=== PATIENT | male | born 1990 | race Caucasian/White ===

== ENCOUNTER 2022-04-22 18:54 | Inpatient (IN) | payer OTHER, SELFPAY ==
[2022-04-22 19:02] VITALS: BP 119/80; PULSE 81; RESP 18; TEMP 37.2; O2SAT 97; BMI 30.5
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
[2022-04-22 19:52] LABS: MANUAL DIFF FLAG NO
[2022-04-22 19:53] LABS: Basophils Percent Auto 0.7 % (0-2); Eosinophils Absolute Auto 0.1 X10*3/uL (0.0-0.4); Eosinophils Percent Auto 1.3 % (0-4); Hematocrit 41.5 % (42.0-52.0); Hemoglobin 15.2 g/dl (14.0-18.0); Imm Gran Abs Auto 0.01 X10*3/uL (0.00-0.03); Imm Gran Pct Auto 0.2 % (0.0-0.4); Lymphocytes Absolute Auto 2.2 X10*3/uL (1.2-4.9); Lymphocytes Percent Auto 40.4 % (20-40); Mean Corpuscular HGB Conc 36.6 g/dl (31.0-36.0); Mean Corpuscular Hemoglobin 32.3 pg (27.0-33.0); Mean Corpuscular Volume 88.3 fL (80.0-98.0); Mean Platelet Volume 10.3 fL (9.4-12.4); Monocytes Absolute Auto 0.7 X10*3/uL (0.1-1.2); Monocytes Percent Auto 13.5 % (2-11); Neutrophils Absolute Auto 2.4 x10*3/uL (2.0-8.3); Neutrophils Percent Auto 43.9 % (45-73); Platelet Count 182 X10*3/uL (160-400); Red Cell Distribution Width 12.1 % (11.0-16.0); White Blood Count 5.5 X10*3/uL (4.8-10.8)
[2022-04-22 19:59] LABS: COVID-19 Test Negative (Negative); IDNOW Serial# 16C4AD1C
[2022-04-22 20:21] LABS: Ethanol < 10 mg/dL
[2022-04-22 20:23] LABS: Acetaminophen LAB < 1 mcg/mL (<30); Anion Gap 11 (12-20); Blood Urea Nitrogen 13 mg/dL (9-16); Calcium 9.1 mg/dL (8.4-10.2); Carbon Dioxide 27 mmol/L (22-29); Chloride 104 mmol/L (96-108); Estimated Glomerular Filt Rate > 60; Glucose Random 79 mg/dL (60-115); Potassium 4.4 mmol/L (3.3-5.1); Salicylate < 5.0 mg/dL (15-30); Sodium 138 mmol/L (135-145)
[2022-04-22 21:07] LABS: Valproate 70.5 mcg/mL (50.0-100.0)
--- NOTE | 2022-04-22 22:58 | MHC.CARE ---
CARE team contacted by [facility] crisis accounts supervisor Tayla who shared information about the pt who had been boarding in the ED at [facility] from 04/18/22 until this afternoon when he was discharged following an MSU. Information will be in the assessment. CARE team was also contacted by the pt's mother and father, who expressed their concerns for their son's wellbeing and their safety. This information, too, will be in the assessment. This ghost writer will evaluate pt once he has provided a urine sample for a toxicology screen.
[2022-04-23 05:56] VITALS: BP 110/60; PULSE 60; RESP 16; TEMP 36.7; O2SAT 97
--- NOTE | 2022-04-23 06:45 | PC.NURSE ---
Patient slept through the night, no distress observed/reported, medication reconciliation completed/MAR updated, patient was assessed by care team pending disposition, VSS, contracted for the safety, behavior non concerning and appropriate, will continue to monitor.
[2022-04-23 08:02] LABS: Amphetamine Screen Urine Not Detected (Not Detect); Barbiturates, Urine Not Detected (Not Detect); Benzodiazepines Screen Urine Not Detected (Not Detect); Cannabinoid Screen Urine POSITIVE (Not Detect); Cocaine Screen Urine Not Detected (Not Detect); Fentanyl, urine Not Detected (Not Detect); Opiate Screen Urine Not Detected (Not Detect); Phencyclidine Screen Urine Not Detected (Not Detect)
--- NOTE | 2022-04-23 08:18 | PC.NURSE ---
pt a/o x 3 no sob/delphine noted skin pink warm dry speaks in full sentences. amb (i) gait steady.n denies any si/hi. pt states i just want to go home pt shari roomn resting,resp even and unlabored.
[2022-04-23] MEDS: Benztropine Mesylate 1 MG TABLET PO (08:21)
[2022-04-23 08:24] VITALS: BP 122/74; PULSE 59; RESP 14; TEMP 36.8; O2SAT 98
--- NOTE | 2022-04-23 08:39 | PC.NURSE ---
care team (thu) at bedside, pt aware of plan of care.
--- NOTE | 2022-04-23 10:45 | PC.NURSE ---
dr. adamson (psychiatrist) at bedside, pt aware of plan of care.
--- NOTE | 2022-04-23 12:06 | MHC.CARE ---
Spoke to patient's mother and provided an update--patient will not be discharging from the Emergency Dept., psychiatrist consulted, he met with him and concluded that patient is in need of inpatient treatment even if it is involuntary. [facility] is unable to accommodate patient until there is a discharge on one of the units, tomorrow a bedsearch will resume and if transferred to another facility they will be notified. Parents were both on speaker expressing concerns about their son coming home, said they have been waiting for him to walk in at any moment and stated they are afraid of him and for him at this time. They asked about visiting hours and decided that it would agitate patient more so decided not to come here.
--- NOTE | 2022-04-23 14:00 | PC.NURSE ---
pt refused lunch, fluids encouraged.
[2022-04-23 14:28] VITALS: RESP 14
[2022-04-23] MEDS: Ziprasidone 80 MG CAPSULE 160 MG PO (20:51)
[2022-04-23] MEDS: Divalproex Sodium ER 500 MG TAB.ER.24H 1500 MG PO (20:51)
[2022-04-24 05:48] VITALS: BP 111/61; PULSE 50; RESP 16; TEMP 36.8; O2SAT 99
--- NOTE | 2022-04-24 06:00 | PC.NURSE ---
MHT attempted to complete changeover. pt refused to change out of T-shirt and socks. RN aware.
--- NOTE | 2022-04-24 06:29 | PC.NURSE ---
Patient slept through the night, no distress observed/reported, medication compliant,disposition per care team is section 12 inpatient bed search, VSS, contracted for the safety, behavior non concerning and appropriate, will continue to monitor.
--- NOTE | 2022-04-24 07:06 | PC.NURSE ---
patient appears to remain asleep at present respirations are even and unlabored patient appears in no distress
[2022-04-24 07:37] VITALS: BP 129/74; PULSE 58; TEMP 36.1; O2SAT 100
--- NOTE | 2022-04-24 10:39 | PC.NURSE ---
client asking for snacks, patient aware not a lot of supplies. what time is lunch?, why is it so late? I dont like your rules
--- NOTE | 2022-04-24 15:22 | PC.NURSE ---
Attempt made to engage pt in individual tx session this date. Upon approach pt presents agitated, guarded, and reactive with little to no insight with regard to events leading up to his hospitalization. Pt presented with various activities as well as sensory item however refuses all activities provided. Consult with pts nurse regarding pts current mood. Pt is unreceptive to all interventions attempted this day.
[2022-04-24 20:27] VITALS: BP 117/71; PULSE 67; RESP 18; TEMP 36.6; O2SAT 96
[2022-04-24] MEDS: OLANZapine 10 MG VIAL IM (21:59)
[2022-04-24] MEDS: Ziprasidone 80 MG CAPSULE 160 MG PO (23:10)
[2022-04-24] MEDS: Benztropine Mesylate 1 MG TABLET PO (23:11)
[2022-04-24] MEDS: Divalproex Sodium ER 500 MG TAB.ER.24H 1500 MG PO (23:28)
--- NOTE | 2022-04-25 00:40 | PC.ADMIT ---
Patient is a 31 year old single white, Tajik speaking male arrived on M5 from the [facility] ED via stretcher in 4 point restraints with security escorting him. He arrived on the unit at 2130 04/24/22 and was yelling and threatening staff and said he was going to Rip this place up . He was brought up on a Section 12 B after he refused to sign a CV. Patient was not willing to settle down despite staff offering him fluids, quiet space, medications and release from restraints. Dr. Velásquez was notified of admission and an order for an IM of Zyprexa 10 mg as a restraint was ordered and given at 215 in the left Deltoid. Patient continued to state he was angry with his parents and did not feel he needed to be in another [facility] . Patient was recently at [facility] ED for several days but was released due to not meeting criteria for IPLOC. Patient had a argument with his parents and was brought to [facility] ED. Patient finally went to sleep after the injection and restraints were removed at 2259. Patient taken via wheelchair to his room in 517-1, he ate a half sandwich and took his scheduled HS medications. Dr. Velásquez was notified of patient's calm behavior and an order was obtained for patient to be placed on 5 minute safety checks. Patient was too sleepy to sign releases or answer questions for admission.
[2022-04-25 08:00] VITALS: BP 112/81; PULSE 68; TEMP 36.2
[2022-04-25 10:21] LABS: Estimated Average Glucose 91 mg/dL; Hemoglobin A1c % 4.8 %
[2022-04-25 10:27] LABS: Alanine Aminotransferase 19 U/L (0-40); Alkaline Phosphatase 41 U/L (39-117); Anion Gap 14 (12-20); Aspartate Amino Transferase 24 U/L (5-37); Bilirubin Total 0.4 mg/dL (0.0-1.0); Blood Urea Nitrogen 14 mg/dL (9-16); Calcium 9.5 mg/dL (8.4-10.2); Carbon Dioxide 26 mmol/L (22-29); Chloride 105 mmol/L (96-108); Cholesterol 128 mg/dL; Creatinine Clr Calc Pharmacy 161.8; Estimated Glomerular Filt Rate > 60; Glucose Fasting 80 mg/dL (60-99); HDL Cholesterol 26 mg/dL; LDL Cholesterol Calculated 78 mg/dl; Potassium 4.5 mmol/L (3.3-5.1); Sodium 140 mmol/L (135-145); Total Protein 6.8 g/dL (6.5-8.0); Triglycerides 122 mg/dL
[2022-04-25 10:31] LABS: Free T4 (Free Thyroxine) 1.11 ng/dL (0.71-1.85); Thyroid Stimulating Hormone 2.22 uIU/mL (0.32-4.0)
[2022-04-25 10:49] LABS: Folate 12.6 ng/mL (> or = 4.0); Vitamin B12 468 pg/mL (200-900)
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
[2022-04-25 17:10] VITALS: BP 113/66; PULSE 65; TEMP 37.3
[2022-04-25] MEDS: Divalproex Sodium ER 500 MG TAB.ER.24H 1500 MG PO (22:16)
[2022-04-25] MEDS: Ziprasidone 80 MG CAPSULE 160 MG PO (22:18)
[2022-04-25] MEDS: Benztropine Mesylate 1 MG TABLET PO (22:19)
[2022-04-25] MEDS: hydrOXYzine HCL 25 MG TABLET PO (23:10)
[2022-04-26 06:00] VITALS: BP 102/56; PULSE 66; TEMP 36.6; O2SAT 99
[2022-04-26 13:02] VITALS: BMI 30.9
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
[2022-04-26 21:26] VITALS: BP 130/78; PULSE 118; RESP 18; TEMP 37.3
[2022-04-26] MEDS: Ziprasidone 80 MG CAPSULE 160 MG PO (22:37)
[2022-04-26] MEDS: Benztropine Mesylate 1 MG TABLET PO (22:38)
[2022-04-26] MEDS: Divalproex Sodium ER 500 MG TAB.ER.24H 1500 MG PO (22:38)
[2022-04-26] MEDS: Melatonin 3 MG TABLET 9 MG PO (22:38)
[2022-04-27 08:36] VITALS: BP 119/76; PULSE 64; RESP 18; TEMP 36.8; O2SAT 98
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
[2022-04-27 19:55] VITALS: BP 125/74; PULSE 86
[2022-04-27] MEDS: Divalproex Sodium ER 500 MG TAB.ER.24H 1500 MG PO (23:04)
[2022-04-27] MEDS: Ziprasidone 80 MG CAPSULE 160 MG PO (23:05)
[2022-04-27] MEDS: Melatonin 3 MG TABLET 9 MG PO (23:05)
[2022-04-27] MEDS: Benztropine Mesylate 1 MG TABLET PO (23:05)
[2022-04-28 06:00] VITALS: BP 130/74; PULSE 94; RESP 18; TEMP 36.4; O2SAT 98
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
[2022-04-28 19:40] VITALS: BP 150/65; TEMP 36.9; O2SAT 97
[2022-04-28] MEDS: Divalproex Sodium ER 500 MG TAB.ER.24H 1500 MG PO (23:53)
[2022-04-28] MEDS: Benztropine Mesylate 1 MG TABLET PO (23:54)
[2022-04-28] MEDS: Ziprasidone 80 MG CAPSULE 160 MG PO (23:54)
[2022-04-28] MEDS: Melatonin 3 MG TABLET 9 MG PO (23:54)
[2022-04-29 06:00] VITALS: BP 123/76; PULSE 77; RESP 18; TEMP 36.3; O2SAT 98
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
[2022-04-29 18:00] VITALS: BP 121/66; PULSE 83; TEMP 36.5; O2SAT 98
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
[2022-04-29] MEDS: Ziprasidone 80 MG CAPSULE 160 MG PO (23:41)
[2022-04-29] MEDS: Divalproex Sodium ER 500 MG TAB.ER.24H 1500 MG PO (23:42)
[2022-04-29] MEDS: Benztropine Mesylate 1 MG TABLET PO (23:42)
[2022-04-29] MEDS: Melatonin 3 MG TABLET 9 MG PO (23:43)
[2022-04-30 06:00] VITALS: BP 131/70; PULSE 79; RESP 18; TEMP 36.4; O2SAT 98
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
[2022-04-30 18:00] VITALS: BP 126/77; PULSE 86; RESP 16; TEMP 36.3
[2022-04-30] MEDS: Melatonin 3 MG TABLET 9 MG PO (20:47)
[2022-04-30] MEDS: Ziprasidone 80 MG CAPSULE 160 MG PO (20:47)
[2022-04-30] MEDS: Benztropine Mesylate 1 MG TABLET PO (20:47)
[2022-04-30] MEDS: Divalproex Sodium ER 500 MG TAB.ER.24H 1500 MG PO (20:47)
[2022-05-01 06:00] VITALS: BP 128/80; PULSE 66; RESP 16; TEMP 36.7; O2SAT 99
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
[2022-05-01 18:00] VITALS: BP 134/84; PULSE 82
[2022-05-01] MEDS: Ziprasidone 80 MG CAPSULE 160 MG PO (22:07)
[2022-05-01] MEDS: Benztropine Mesylate 1 MG TABLET PO (22:07)
[2022-05-01] MEDS: Melatonin 3 MG TABLET 9 MG PO (22:07)
[2022-05-01] MEDS: Divalproex Sodium ER 500 MG TAB.ER.24H 1500 MG PO (22:07)
[2022-05-02 06:42] VITALS: BP 115/77; PULSE 69; RESP 16; TEMP 36.3; O2SAT 98
[2022-05-02] MEDS: Lithium Carbonate ER 450 MG TABLET.ER PO (14:00)
[2022-05-02 18:00] VITALS: BP 136/82; PULSE 64; RESP 14; TEMP 36.6
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
[2022-05-02] MEDS: Melatonin 3 MG TABLET 9 MG PO (23:13)
[2022-05-02] MEDS: Benztropine Mesylate 1 MG TABLET PO (23:13)
[2022-05-02] MEDS: Ziprasidone 80 MG CAPSULE 160 MG PO (23:13)
[2022-05-02] MEDS: Divalproex Sodium ER 500 MG TAB.ER.24H 1500 MG PO (23:14)
[2022-05-03 06:46] VITALS: BP 97/55; PULSE 73; RESP 16; TEMP 35.9; O2SAT 98
[2022-05-03 07:00] VITALS: BMI 31.4
[2022-05-03] MEDS: Lithium Carbonate ER 450 MG TABLET.ER PO ×2 (10:31→22:13)
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
[2022-05-03 16:25] VITALS: BP 106/58; PULSE 78
[2022-05-03] MEDS: Benztropine Mesylate 1 MG TABLET PO (22:13)
[2022-05-03] MEDS: Ziprasidone 80 MG CAPSULE 160 MG PO (22:13)
[2022-05-03] MEDS: Divalproex Sodium ER 500 MG TAB.ER.24H 1500 MG PO (22:13)
[2022-05-03] MEDS: Melatonin 3 MG TABLET 9 MG PO (22:14)
[2022-05-04 06:00] VITALS: BP 126/81; PULSE 76; RESP 18; TEMP 36.3; O2SAT 96
[2022-05-04] MEDS: Lithium Carbonate ER 450 MG TABLET.ER PO ×2 (09:39→22:50)
[2022-05-04 16:39] VITALS: BP 133/60; PULSE 68
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
[2022-05-04] MEDS: Divalproex Sodium ER 500 MG TAB.ER.24H 1500 MG PO (22:49)
[2022-05-04] MEDS: Benztropine Mesylate 1 MG TABLET PO (22:50)
[2022-05-04] MEDS: Ziprasidone 80 MG CAPSULE 160 MG PO (22:50)
[2022-05-04] MEDS: Melatonin 3 MG TABLET 9 MG PO (22:50)
[2022-05-05 06:00] VITALS: BP 121/79; PULSE 72; RESP 18; TEMP 36.4; O2SAT 96
[2022-05-05] MEDS: Lithium Carbonate ER 450 MG TABLET.ER PO ×2 (08:42→21:26)
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
[2022-05-05 18:00] VITALS: BP 133/67; PULSE 85; RESP 18; TEMP 37.2; O2SAT 98
[2022-05-05] MEDS: Divalproex Sodium ER 500 MG TAB.ER.24H 1500 MG PO (21:25)
[2022-05-05] MEDS: Melatonin 3 MG TABLET 9 MG PO (21:25)
[2022-05-05] MEDS: Ziprasidone 80 MG CAPSULE 160 MG PO (21:26)
[2022-05-05] MEDS: Benztropine Mesylate 1 MG TABLET PO (21:26)
[2022-05-06 06:00] VITALS: BP 131/64; PULSE 81; RESP 18; TEMP 37; O2SAT 97
[2022-05-06] MEDS: Lithium Carbonate ER 450 MG TABLET.ER PO (08:13)
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
[2022-05-06 16:01] VITALS: BP 171/94; PULSE 87
[2022-05-06] MEDS: Divalproex Sodium ER 500 MG TAB.ER.24H 1500 MG PO (22:01)
[2022-05-06] MEDS: Melatonin 3 MG TABLET 9 MG PO (22:02)
[2022-05-06] MEDS: Ziprasidone 80 MG CAPSULE 160 MG PO (22:02)
[2022-05-06] MEDS: Benztropine Mesylate 1 MG TABLET PO (22:02)
[2022-05-07 06:00] VITALS: BP 134/72; PULSE 84; RESP 18; TEMP 37.2; O2SAT 98
[2022-05-07 08:33] LABS: MANUAL DIFF FLAG NO
[2022-05-07 08:42] LABS: Basophils Percent Auto 0.6 % (0-2); Eosinophils Absolute Auto 0.2 X10*3/uL (0.0-0.4); Eosinophils Percent Auto 2.8 % (0-4); Hematocrit 41.5 % (42.0-52.0); Hemoglobin 14.8 g/dl (14.0-18.0); Imm Gran Abs Auto 0.04 X10*3/uL (0.00-0.03); Imm Gran Pct Auto 0.6 % (0.0-0.4); Lymphocytes Absolute Auto 2.4 X10*3/uL (1.2-4.9); Lymphocytes Percent Auto 37.8 % (20-40); Mean Corpuscular HGB Conc 35.7 g/dl (31.0-36.0); Mean Corpuscular Hemoglobin 32.7 pg (27.0-33.0); Mean Corpuscular Volume 91.6 fL (80.0-98.0); Mean Platelet Volume 10.4 fL (9.4-12.4); Monocytes Absolute Auto 0.8 X10*3/uL (0.1-1.2); Monocytes Percent Auto 13.2 % (2-11); Neutrophils Absolute Auto 2.9 x10*3/uL (2.0-8.3); Platelet Count 165 X10*3/uL (160-400); Red Blood Count 4.53 X10*6/uL (4.60-5.80); White Blood Count 6.4 X10*3/uL (4.8-10.8)
[2022-05-07 09:04] LABS: Lithium 0.23 mmol/L (0.60-1.20)
[2022-05-07 09:07] LABS: Alanine Aminotransferase 31 U/L (0-40); Albumin Level 4.3 g/dL (3.5-5.0); Alkaline Phosphatase 42 U/L (39-117); Anion Gap 12 (12-20); Aspartate Amino Transferase 16 U/L (5-37); Bilirubin Total 0.6 mg/dL (0.0-1.0); Blood Urea Nitrogen 14 mg/dL (9-16); Calcium 9.5 mg/dL (8.4-10.2); Carbon Dioxide 27 mmol/L (22-29); Chloride 105 mmol/L (96-108); Creatinine Clr Calc Pharmacy 166.1; Estimated Glomerular Filt Rate > 60; Glucose Random 98 mg/dL (60-115); Potassium 4.1 mmol/L (3.3-5.1); Sodium 140 mmol/L (135-145)
[2022-05-07 09:31] LABS: Thyroid Stimulating Hormone 3.98 uIU/mL (0.32-4.0)
[2022-05-07 10:23] LABS: Valproate 57.6 mcg/mL (50.0-100.0)
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
[2022-05-07 20:34] VITALS: BP 138/80; PULSE 83
[2022-05-07] MEDS: Ziprasidone 80 MG CAPSULE 160 MG PO (21:51)
[2022-05-07] MEDS: Melatonin 3 MG TABLET 9 MG PO (21:51)
[2022-05-07] MEDS: Benztropine Mesylate 1 MG TABLET PO (21:51)
[2022-05-07] MEDS: Divalproex Sodium ER 250 MG TAB.ER.24H 1750 MG PO (21:51)
[2022-05-07] MEDS: Lithium Carbonate ER 450 MG TABLET.ER 900 MG PO (21:52)
[2022-05-08 06:43] VITALS: BP 107/71; PULSE 65; RESP 14; TEMP 36.1; O2SAT 97
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
[2022-05-08 17:15] VITALS: BP 125/81; PULSE 82; TEMP 36.6; O2SAT 98
[2022-05-08] MEDS: Melatonin 3 MG TABLET 9 MG PO ×2 (22:51→22:55)
[2022-05-08] MEDS: Divalproex Sodium ER 250 MG TAB.ER.24H 1750 MG PO (22:56)
[2022-05-08] MEDS: Ziprasidone 80 MG CAPSULE 160 MG PO (22:57)
[2022-05-08] MEDS: Lithium Carbonate ER 450 MG TABLET.ER 900 MG PO (22:57)
[2022-05-08] MEDS: Benztropine Mesylate 1 MG TABLET PO (22:59)
[2022-05-09 06:00] VITALS: BP 118/79; PULSE 67; TEMP 36.2; O2SAT 97
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
[2022-05-09] MEDS: Melatonin 3 MG TABLET 9 MG PO (18:50)
[2022-05-09 19:30] VITALS: BP 154/81; PULSE 93; RESP 14; TEMP 37; O2SAT 99
[2022-05-09] MEDS: Lithium Carbonate ER 450 MG TABLET.ER 900 MG PO (21:52)
[2022-05-09] MEDS: Benztropine Mesylate 1 MG TABLET PO (21:52)
[2022-05-09] MEDS: Ziprasidone 80 MG CAPSULE 160 MG PO (21:52)
[2022-05-09] MEDS: Divalproex Sodium ER 250 MG TAB.ER.24H 1750 MG PO (21:53)
[2022-05-10 06:59] VITALS: BP 116/84; PULSE 87; RESP 14; TEMP 36.2; O2SAT 97
[2022-05-10 07:00] VITALS: BMI 32.2
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
[2022-05-10 20:50] VITALS: BP 118/71; PULSE 78; TEMP 36.8
[2022-05-10] MEDS: Melatonin 3 MG TABLET 9 MG PO (22:10)
[2022-05-10] MEDS: Ziprasidone 80 MG CAPSULE 160 MG PO (22:11)
[2022-05-10] MEDS: hydrOXYzine HCL 25 MG TABLET PO (22:13)
[2022-05-10] MEDS: Lithium Carbonate ER 450 MG TABLET.ER 900 MG PO (22:14)
[2022-05-10] MEDS: Divalproex Sodium ER 250 MG TAB.ER.24H 1750 MG PO (22:15)
[2022-05-10] MEDS: Benztropine Mesylate 1 MG TABLET PO (22:15)
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
[2022-05-11 21:09] VITALS: BP 125/66; PULSE 80; RESP 16; O2SAT 96
[2022-05-11] MEDS: Lithium Carbonate ER 450 MG TABLET.ER 900 MG PO (22:28)
[2022-05-11] MEDS: Divalproex Sodium ER 250 MG TAB.ER.24H 1750 MG PO (22:28)
[2022-05-11] MEDS: Melatonin 3 MG TABLET 9 MG PO (22:29)
[2022-05-11] MEDS: Ziprasidone 80 MG CAPSULE 160 MG PO (22:29)
[2022-05-11] MEDS: Benztropine Mesylate 1 MG TABLET PO (22:29)
[2022-05-11] MEDS: hydrOXYzine HCL 25 MG TABLET PO (22:29)
[2022-05-12 06:44] VITALS: BP 114/66; PULSE 89; RESP 14; TEMP 36.2; O2SAT 96
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
[2022-05-12 18:00] VITALS: BP 128/64; PULSE 78; RESP 16; TEMP 37.4; O2SAT 98
[2022-05-12] MEDS: Divalproex Sodium ER 250 MG TAB.ER.24H 1750 MG PO (21:39)
[2022-05-12] MEDS: Lithium Carbonate ER 450 MG TABLET.ER 900 MG PO (21:40)
[2022-05-12] MEDS: Melatonin 3 MG TABLET 9 MG PO (21:40)
[2022-05-12] MEDS: Benztropine Mesylate 1 MG TABLET PO (21:40)
[2022-05-12] MEDS: hydrOXYzine HCL 25 MG TABLET PO (21:40)
[2022-05-12] MEDS: Ziprasidone 80 MG CAPSULE 160 MG PO (21:40)
[2022-05-13 06:00] VITALS: BP 122/60; PULSE 55; RESP 16; TEMP 36.5; O2SAT 100
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
[2022-05-13 18:00] VITALS: BP 125/74; PULSE 80; RESP 18; TEMP 36.7; O2SAT 98
[2022-05-13] MEDS: Divalproex Sodium ER 500 MG TAB.ER.24H 1500 MG PO (22:28)
[2022-05-13] MEDS: Benztropine Mesylate 1 MG TABLET PO (22:28)
[2022-05-13] MEDS: Lithium Carbonate ER 450 MG TABLET.ER 900 MG PO (22:29)
[2022-05-13] MEDS: Ziprasidone 80 MG CAPSULE 160 MG PO (22:29)
[2022-05-13] MEDS: hydrOXYzine HCL 25 MG TABLET PO (22:29)
[2022-05-13] MEDS: Divalproex Sodium ER 250 MG TAB.ER.24H PO (22:29)
[2022-05-13] MEDS: Melatonin 3 MG TABLET 9 MG PO (22:30)
[2022-05-14 06:00] VITALS: BP 121/64; PULSE 70; RESP 16; TEMP 36.6; O2SAT 99
[2022-05-14 08:28] LABS: Lithium < 0.10 mmol/L (0.60-1.20)
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
[2022-05-14 18:00] VITALS: BP 130/80; PULSE 82
[2022-05-14] MEDS: Melatonin 3 MG TABLET 9 MG PO (22:15)
[2022-05-14] MEDS: hydrOXYzine HCL 25 MG TABLET PO (22:15)
[2022-05-14] MEDS: Lithium Carbonate ER 450 MG TABLET.ER 900 MG PO (22:15)
[2022-05-14] MEDS: Benztropine Mesylate 1 MG TABLET PO (22:15)
[2022-05-14] MEDS: Ziprasidone 80 MG CAPSULE 160 MG PO (22:15)
[2022-05-14] MEDS: Divalproex Sodium ER 500 MG TAB.ER.24H 1500 MG PO (22:16)
[2022-05-14] MEDS: Divalproex Sodium ER 250 MG TAB.ER.24H PO (22:16)
[2022-05-15 05:56] VITALS: BP 117/70; PULSE 66; RESP 16; TEMP 36.3; O2SAT 95
--- NOTE | 2022-05-15 07:00 | ECG_ITS ---
Test Reason : MED CHECK Blood Pressure : / mmHG Vent. Rate : 069 BPM Atrial Rate : 069 BPM P-R Int : 182 ms QRS Dur : 122 ms QT Int : 390 ms P-R-T Axes : 040 042 037 degrees QTc Int : 417 ms Normal sinus rhythm Right bundle branch block Abnormal ECG No previous ECGs available Referred By: Thea Ceja Electronically Signed By:RAMOS LE MD
[2022-05-15 09:00] LABS: Baso%MD 0.9 %; Eos%MD 3.4 %; Hematocrit 42.9 % (42.0-52.0); Hemoglobin 15.2 g/dl (14.0-18.0); IG%MD 0.4 %; Lymph%MD 36.5 %; Mean Corpuscular HGB Conc 35.4 g/dl (31.0-36.0); Mean Corpuscular Volume 93.1 fL (80.0-98.0); Mean Platelet Volume 10.4 fL (9.4-12.4); Mono%MD 11.7 %; Neut%MD 47.1 %; Platelet Count 152 X10*3/uL (160-400); Red Blood Count 4.61 X10*6/uL (4.60-5.80); Red Cell Distribution Width 13.1 % (11.0-16.0); White Blood Count 5.6 X10*3/uL (4.8-10.8)
[2022-05-15 09:17] LABS: Lithium 0.57 mmol/L (0.60-1.20)
[2022-05-15 09:32] LABS: Alanine Aminotransferase 55 U/L (0-40); Albumin Level 4.1 g/dL (3.5-5.0); Alkaline Phosphatase 41 U/L (39-117); Anion Gap 12 (12-20); Aspartate Amino Transferase 23 U/L (5-37); Bilirubin Total 0.7 mg/dL (0.0-1.0); Blood Urea Nitrogen 12 mg/dL (9-16); Calcium 8.9 mg/dL (8.4-10.2); Carbon Dioxide 26 mmol/L (22-29); Chloride 106 mmol/L (96-108); Estimated Glomerular Filt Rate > 60; Glucose Random 107 mg/dL (60-115); Sodium 140 mmol/L (135-145); Total Protein 6.7 g/dL (6.5-8.0)
[2022-05-15 09:34] LABS: Valproate 59.9 mcg/mL (50.0-100.0)
[2022-05-15 09:45] LABS: Band Neutrophils Percent 2 % (3-5); Basophils Abs Manual 0.1 X10*3/uL (0.0-0.2); Basophils Percent Manual 1 % (0-2); Eosinophils Absolute Manual 0.1 X10*3/uL (0.0-0.4); Eosinophils Percent Manual 2 % (0-4); Lymphocytes Absolute Manual 2.1 X10*3/uL (1.2-4.9); Lymphocytes Percent Manual 37 % (20-40); Monocytes Absolute Manual 0.5 X10*3/uL (0.1-1.2); Monocytes Percent Manual 9 % (2-11); Neutrophils Absolute Manual 2.9 X10*3/uL (2.0-8.3); Neutrophils Percent Manual 49 % (45-73)
[2022-05-15 09:47] LABS: Platelet Estimate SLIGHTLY DECREASED (NORMAL); Platelet Morphology Comment NORMAL; RBC Morphology NORMAL
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
== END 2022-05-15 16:38 | disposition home or self-care (01) | DRG 885 ==
LOC: HO.ED 04-23 11:58 → HO.PM5 04-24 20:46
PROVIDERS: Physician Assistant; Psychiatry & Neurology Psychiatry; Admitting Provider Psychiatry & Neurology Psychiatry; Emergency Provider Emergency Medicine Emergency Medical Services; Visit Provider Clinical Nurse Specialist Psychiatric/Mental Health, Adult
DX: F31.9 Bipolar disorder, unspecified (principal); Z20.822 Contact with and (suspected) exposure to COVID-19; Z91.14 Patient's other noncompliance with medication regimen; Z88.1 Allergy status to other antibiotic agents; Z88.8 Allergy status to other drugs, medicaments and biological substances; Z79.899 Other long term (current) drug therapy
CPT/HCPCS: 36415; 80048; 80053; 80061; 80143; 80164; 80178; 80179; 80307; 82077; 82607; 82746; 83036; 84439; 84443; 85007; 85025; 85027; 87635; 93005; 99285

== ENCOUNTER 2022-07-13 09:52 | Inpatient (IN) | payer OTHER, SELFPAY ==
[2022-07-13 09:58] VITALS: BP 156/89; PULSE 108; RESP 20; TEMP 36.8; O2SAT 98; BMI 32.8
--- NOTE | 2022-07-13 10:46 | ED_ITS ---
HPI - Psych General Chief Complaint: Psychiatric Symptoms <GARRY Rm - Last Filed: 07/13/22 16:35> Stated Complaint: psych eval. <GARRY Rm - Last Filed: 07/13/22 16:35> Time Seen by Provider: 07/13/22 10:24 <GARRY Rm - Last Filed: 07/13/22 16:35> Source: patient, family and old records reviewed <GARRY Rm - Last Filed: 07/13/22 16:35> Mode of arrival: ambulatory <GARRY Rm - Last Filed: 07/13/22 16:35> Limitations: no limitations <GARRY Rm Last Filed: 07/13/22 16:35> History of Present Illness HPI Narrative: 32 yo male with history bipolar disorder, type 1 diagnosed at age 18 who presents to the ER for evaluation of concerning behavior per his parents report. His father who he lives with reports the patient was gone for over 14 hours. He was out all night and wandering around. He came back to the house this morning speaking about grandiose delusions. Father is worried about his safety. The patient reports he has been compliant with his Depakote, Geodon and Cogentin. He states he was walking around last night to ?go on an adventure. ? He states he walks around, interacting with people and animals and ?giving them respect.? He reports seeing lasers and different forms of art throughout his adventure. He denies any substance abuse other than and CBD and occasional alcohol. When asked the last time he slept he states he sleeps when he is tired. He did not sleep at all last night. He does not feel tired right now. <GARRY Rm - Last Filed: 07/13/22 16:35> MD complaint: altered mental status <GARRY Rm - Last Filed: 07/13/22 16:35> Onset (ago): day(s) (1) <GARRY Rm Last Filed: 07/13/22 16:35> Duration: getting worse <GARRY Rm Last Filed: 07/13/22 16:35> History of same: Yes <GARRY Rm Last Filed: 07/13/22 16:35> Relieving factors: medication and therapy <GARRY Rm Last Filed: 07/13/22 16:35> Exacerbating factors: none <GARRY Rm Last Filed: 07/13/22 16:35> Context: significant life stressor <GARRY Rm Last Filed: 07/13/22 16:35> Associated psychiatric symptoms: racing thoughts, auditory hallucinations and visual hallucinations <GARRY Rm Last Filed: 07/13/22 16:35> Associated symptoms: insomnia <GARRY Rm Last Filed: 07/13/22 16:35> Treatments prior to arrival: none <GARRY Rm Last Filed: 07/13/22 16:35> Related Data Home Medications: Home Medications Medication Instructions Recorded Confirmed hydroxyzine pamoate 25 mg capsule 1 cap PO TID PRN Anxiety 07/13/22 07/13/22 melatonin 3 mg tablet 3 mg PO BEDTIME 07/13/22 07/13/22 Previous Rx's Medication Instructions Recorded benztropine 1 mg tablet 1 mg PO DAILY #30 tabs 05/15/22 divalproex 250 mg tablet,extended 250 mg PO BEDTIME #30 tabs 05/15/22 release 24 hr divalproex 500 mg tablet,extended 1,500 mg PO BEDTIME #90 tabs 05/15/22 release 24 hr hydrocortisone 1 % topical cream 1 appl topical BID PRN eczema #1 g 05/15/22 lithium carbonate 450 mg 900 mg PO BEDTIME #6 tabs 05/15/22 tablet,extended release ziprasidone HCl 80 mg capsule 160 mg PO BEDTIME #60 caps 05/15/22 <GARRY Rm Last Filed: 07/13/22 16:35> Allergies/Adverse Reactions: Allergies Allergy/AdvReac Type Severity Reaction Status Date / Time sulfamethoxazole AdvReac Intermediate Rash Verified 04/22/22 19:17 [From Bactrim] trimethoprim [From Bactrim] AdvReac Intermediate Rash Verified 04/22/22 19:17 cefaclor [From Ceclor] AdvReac Rash Verified 04/22/22 19:18 <GARRY Rm Last Filed: 07/13/22 16:35> Review of Systems Review of Systems: Constitutional: No Fever, No Chills, +Insomnia ENT/Mouth: No sore throat, No Rhinorrhea, No Swallowing Difficulty Eyes: No Eye Pain, No Swelling, No Redness Cardiovascular: No Chest Pain, No SOB, No Orthopnea, No Edema Respiratory: No Cough, No Sputum, No Wheezing, No dyspnea Gastrointestinal: No Nausea, No Vomiting, No Diarrhea, No abdominal Pain, No Hematochezia, No Melena Genitourinary: No Dysuria, No Urinary Frequency, No Hematuria Musculoskeletal: No joint pain, No Myalgias Skin: No Skin Lesions, No rash Neuro: No Weakness, No Numbness, No Dizziness, No Headache Psych: + Anxiety/Panic, No Depression, No SI Heme/Lymph: No Bruising, No Lymphadenopathy Endocrine: No Polyuria, No Polydipsia <GARRY Rm - Last Filed: 07/13/22 16:35> [facility] Social History Social History: Social History Household Members: Family Housing: House Do you presently have visiting nurse or other home services: No Unable to assess alcohol history related to: Refusing to respond Alcohol intake: unknown Patient Tobacco Use Status: Never used Tobacco e-Cigarette/Vaping Use: Never Used Use of substances other than those prescribed or required for medical reasons: No Advance Directives: No Advance Directives Information Provided: No Healthcare Proxy: No Guardian: No service: No Sexual orientation: Straight/Heterosexual <GARRY Rm - Last Filed: 07/13/22 16:35> Physical Exam Vital Signs: Vital Signs: Last Vital Signs Temp 98.3 F 07/15/22 06:23 Pulse 90 07/15/22 06:23 Resp 07/15/22 06:23 BP 127/74 07/15/22 06:23 Pulse Ox 97 07/15/22 06:23 O2 Del Method 07/15/22 06:23 BMI result Body Mass Index 32.8 <GARRY Rm Last Filed: 07/13/22 16:35> Vital Signs: Last Vital Signs Temp 98.3 F 07/15/22 06:23 Pulse 90 07/15/22 06:23 Resp 07/15/22 06:23 BP 127/74 07/15/22 06:23 Pulse Ox 97 07/15/22 06:23 O2 Del Method 07/15/22 06:23 BMI result Body Mass Index 32.8 <Chapo Woodall MD - Last Filed: 07/14/22 08:16> Vital Signs: Last Vital Signs Temp 98.3 F 07/15/22 06:23 Pulse 90 07/15/22 06:23 Resp 17 07/15/22 06:23 BP 127/74 07/15/22 06:23 Pulse Ox 97 07/15/22 06:23 O2 Del Method 07/15/22 06:23 BMI result Body Mass Index 32.8 <Aureliano Arrington MD - Last Filed: 07/15/22 07:52> Appearance: Alert. Oriented X3. No acute distress. Eyes: Pupils equal, round and reactive to light. ENT: Pharynx normal. Neck: Normal inspection. Neck supple. CVS: Normal heart rate and rhythm. Pulses normal. Respiratory: No respiratory distress. Breath sounds normal. Abdomen: Soft and nontender. +BS x4 Skin: Skin warm and dry. Normal skin color. Normal skin turgor. No rashes. Extremities: No lower extremity edema. Neuro/psych: Oriented X 3. No motor deficit. No sensory deficit. CN II-XII intact. Makes eye contact, delay in answering some questions, grandiose delusions and fixations. No suicidality. Racing thoughts. Does not seem to be responding to internal stimuli <GARRY Rm - Last Filed: 07/13/22 16:35> Course Course Course Narrative: 32-year-old male with a history of bipolar 1 disorder who presents to the ER for evaluation of abnormal behavior. His parents report he went missing last night and was out all night, for over 14 hours. He came back to their house this morning with irrational thoughts and delusions. They are concerned about his safety. Will check basic lab workup, Depakote level and have the crisis team evaluate him. <GARRY Rm - Last Filed: 07/13/22 16:35> Reevaluation(s) Reevaluation #1: Depakote level is low. Suspect he will require inpatient level of care. Will place and physician observation at this time. Physician observation started at 1:55pm. Patient placed in physician observation because patient is awaiting [facility] evaluation for the possible need of inpatient psych admission. At the time observation was started patient's vital signs were stable. Patient is alert and oriented. Neuro exam is non-focal. CV: RRR and lungs are clear. Will continue to monitor. <GARRY Rm - Last Filed: 07/13/22 16:35> Reevaluation #2: No events overnight reported by the nurse, patient has been stable, stable vital signs, patient is been admitted to awaiting for bed availability, continue with Section 12, physician observation continuous. <Chapo Woodall MD - Last Filed: 07/14/22 08:16> Time: 08:15 <Chapo Woodall MD - Last Filed: 07/14/22 08:16> Reevaluation #3: No event overnight patient is on Section 12, inpatient level of care of care, remaining stable clinically <Aureliano Arrington MD - Last Filed: 07/15/22 07:52> MDM - Psych Lab Data Result diagrams: : 07/13/22 11:12 07/13/22 11:12 <GARRY Rm - Last Filed: 07/13/22 16:35> Labs: Lab Results 07/13/22 07/13/22 07/13/22 Range/Units 11:12 11:12 11:12 WBC 11.3 H (4.8-10.8) X10*3/uL RBC 5.22 (4.60-5.80) X10*6/uL Hgb 16.8 (14.0-18.0) g/dl Hct 47.1 (42.0-52.0) % MCV 90.2 (80.0-98.0) fL MCH 32.2 (27.0-33.0) pg MCHC 35.7 (31.0-36.0) g/dl RDW 11.7 (11.0-16.0) % Plt Count 224 D (160-400) X10*3/uL MPV 10.4 (9.4-12.4) fL Immature Gran % (Auto) 0.3 (0.0-0.4) % Neut % (Auto) 75.0 H (45-73) % Lymph % (Auto) 14.0 L (20-40) % [place] % (Auto) 10.1 (2-11) % Eos % (Auto) 0.2 (0-4) % Baso % (Auto) 0.4 (0-2) % Lymph # (Auto) 1.6 (1.2-4.9) X10*3/uL [place] # (Auto) 1.1 (0.1-1.2) X10*3/uL Eos # (Auto) 0.0 (0.0-0.4) X10*3/uL Baso # (Auto) 0.0 (0.0-0.2) X10*3/uL Abs Immat Gran (auto) 0.03 (0.00-0.03) X10*3/uL Absolute Neuts (auto) 8.5 H (2.0-8.3) x10*3/uL Absolute Nucleated RBC 0.000 (0.0-0.012) X10*3/uL Nucleated RBC % (auto) 0.0 (0.0-0.2) /100WBC Sodium 137 (135-145) mmol/L Potassium 3.9 (3.3-5.1) mmol/L Chloride 100 (96-108) mmol/L Carbon Dioxide 23 (22-29) mmol/L Anion Gap 18 (12-20) BUN 25 H D (9-16) mg/dL Creatinine 1.29 (0.5-1.4) mg/dL Estim Creat Clear Calc 104.2 Estimated GFR > 60 Random Glucose 175 H D (60-115) mg/dL Calcium 9.6 D (8.4-10.2) mg/dL Magnesium 2.3 (1.6-2.6) mg/dL Total Bilirubin 1.8 H (0.0-1.0) mg/dL Direct Bilirubin 0.6 H (0.0-0.5) mg/dL AST 36 D (5-37) U/L ALT 30 (0-40) U/L Alkaline Phosphatase 55 D (39-117) U/L Total Protein 8.4 H D (6.5-8.0) g/dL Albumin 5.1 H D (3.5-5.0) g/dL Urine Opiates Screen (Not Detect) Urine Fentanyl Screen (Not Detect) Ur Barbiturates Screen (Not Detect) Valproic Acid (50.0-100.0) mcg/mL Ur Phencyclidine Scrn (Not Detect) Ur Amphetamines Screen (Not Detect) U Benzodiazepines Scrn (Not Detect) Urine Cocaine Screen (Not Detect) U Marijuana (THC) Screen (Not Detect) Ethyl Alcohol < 10 mg/dL COVID-19 (JESS) Negative (Negative) COVID-19 Clin Com See Note 07/13/22 07/13/22 Range/Units 12:12 13:09 WBC (4.8-10.8) X10*3/uL RBC (4.60-5.80) X10*6/uL Hgb (14.0-18.0) g/dl Hct (42.0-52.0) % MCV (80.0-98.0) fL MCH (27.0-33.0) pg MCHC (31.0-36.0) g/dl RDW (11.0-16.0) % Plt Count (160-400) X10*3/uL MPV (9.4-12.4) fL Immature Gran % (Auto) (0.0-0.4) % Neut % (Auto) (45-73) % Lymph % (Auto) (20-40) % [place] % (Auto) (2-11) % Eos % (Auto) (0-4) % Baso % (Auto) (0-2) % Lymph # (Auto) (1.2-4.9) X10*3/uL [place] # (Auto) (0.1-1.2) X10*3/uL Eos # (Auto) (0.0-0.4) X10*3/uL Baso # (Auto) (0.0-0.2) X10*3/uL Abs Immat Gran (auto) (0.00-0.03) X10*3/uL Absolute Neuts (auto) (2.0-8.3) x10*3/uL Absolute Nucleated RBC (0.0-0.012) X10*3/uL Nucleated RBC % (auto) (0.0-0.2) /100WBC Sodium (135-145) mmol/L Potassium (3.3-5.1) mmol/L Chloride (96-108) mmol/L Carbon Dioxide (22-29) mmol/L Anion Gap (12-20) BUN (9-16) mg/dL Creatinine (0.5-1.4) mg/dL Estim Creat Clear Calc Estimated GFR Random Glucose (60-115) mg/dL Calcium (8.4-10.2) mg/dL Magnesium (1.6-2.6) mg/dL Total Bilirubin (0.0-1.0) mg/dL Direct Bilirubin (0.0-0.5) mg/dL AST (5-37) U/L ALT (0-40) U/L Alkaline Phosphatase (39-117) U/L Total Protein (6.5-8.0) g/dL Albumin (3.5-5.0) g/dL Urine Opiates Screen Not Detected (Not Detect) Urine Fentanyl Screen Not Detected (Not Detect) Ur Barbiturates Screen Not Detected (Not Detect) Valproic Acid 17.1 L (50.0-100.0) mcg/mL Ur Phencyclidine Scrn Not Detected (Not Detect) Ur Amphetamines Screen Not Detected (Not Detect) U Benzodiazepines Scrn Not Detected (Not Detect) Urine Cocaine Screen Not Detected (Not Detect) U Marijuana (THC) Screen POSITIVE H (Not Detect) Ethyl Alcohol mg/dL COVID-19 (JESS) (Negative) COVID-19 Clin Com <GARRY Rm - Last Filed: 07/13/22 16:35> Lab Results 07/13/22 07/13/22 07/13/22 Range/Units 11:12 11:12 11:12 WBC 11.3 H (4.8-10.8) X10*3/uL RBC 5.22 (4.60-5.80) X10*6/uL Hgb 16.8 (14.0-18.0) g/dl Hct 47.1 (42.0-52.0) % MCV 90.2 (80.0-98.0) fL MCH 32.2 (27.0-33.0) pg MCHC 35.7 (31.0-36.0) g/dl RDW 11.7 (11.0-16.0) % Plt Count 224 D (160-400) X10*3/uL MPV 10.4 (9.4-12.4) fL Immature Gran % (Auto) 0.3 (0.0-0.4) % Neut % (Auto) 75.0 H (45-73) % Lymph % (Auto) 14.0 L (20-40) % [place] % (Auto) 10.1 (2-11) % Eos % (Auto) 0.2 (0-4) % Baso % (Auto) 0.4 (0-2) % Lymph # (Auto) 1.6 (1.2-4.9) X10*3/uL [place] # (Auto) 1.1 (0.1-1.2) X10*3/uL Eos # (Auto) 0.0 (0.0-0.4) X10*3/uL Baso # (Auto) 0.0 (0.0-0.2) X10*3/uL Abs Immat Gran (auto) 0.03 (0.00-0.03) X10*3/uL Absolute Neuts (auto) 8.5 H (2.0-8.3) x10*3/uL Absolute Nucleated RBC 0.000 (0.0-0.012) X10*3/uL Nucleated RBC % (auto) 0.0 (0.0-0.2) /100WBC Sodium 137 (135-145) mmol/L Potassium 3.9 (3.3-5.1) mmol/L Chloride 100 (96-108) mmol/L Carbon Dioxide 23 (22-29) mmol/L Anion Gap 18 (12-20) BUN 25 H D (9-16) mg/dL Creatinine 1.29 (0.5-1.4) mg/dL Estim Creat Clear Calc 104.2 Estimated GFR > 60 Random Glucose 175 H D (60-115) mg/dL Calcium 9.6 D (8.4-10.2) mg/dL Magnesium 2.3 (1.6-2.6) mg/dL Total Bilirubin 1.8 H (0.0-1.0) mg/dL Direct Bilirubin 0.6 H (0.0-0.5) mg/dL AST 36 D (5-37) U/L ALT 30 (0-40) U/L Alkaline Phosphatase 55 D (39-117) U/L Total Protein 8.4 H D (6.5-8.0) g/dL Albumin 5.1 H D (3.5-5.0) g/dL Urine Opiates Screen (Not Detect) Urine Fentanyl Screen (Not Detect) Ur Barbiturates Screen (Not Detect) Valproic Acid (50.0-100.0) mcg/mL Ur Phencyclidine Scrn (Not Detect) Ur Amphetamines Screen (Not Detect) U Benzodiazepines Scrn (Not Detect) Urine Cocaine Screen (Not Detect) U Marijuana (THC) Screen (Not Detect) Ethyl Alcohol < 10 mg/dL COVID-19 (JESS) Negative (Negative) COVID-19 Clin Com See Note 07/13/22 07/13/22 Range/Units 12:12 13:09 WBC (4.8-10.8) X10*3/uL RBC (4.60-5.80) X10*6/uL Hgb (14.0-18.0) g/dl Hct (42.0-52.0) % MCV (80.0-98.0) fL MCH (27.0-33.0) pg MCHC (31.0-36.0) g/dl RDW (11.0-16.0) % Plt Count (160-400) X10*3/uL MPV (9.4-12.4) fL Immature Gran % (Auto) (0.0-0.4) % Neut % (Auto) (45-73) % Lymph % (Auto) (20-40) % [place] % (Auto) (2-11) % Eos % (Auto) (0-4) % Baso % (Auto) (0-2) % Lymph # (Auto) (1.2-4.9) X10*3/uL [place] # (Auto) (0.1-1.2) X10*3/uL Eos # (Auto) (0.0-0.4) X10*3/uL Baso # (Auto) (0.0-0.2) X10*3/uL Abs Immat Gran (auto) (0.00-0.03) X10*3/uL Absolute Neuts (auto) (2.0-8.3) x10*3/uL Absolute Nucleated RBC (0.0-0.012) X10*3/uL Nucleated RBC % (auto) (0.0-0.2) /100WBC Sodium (135-145) mmol/L Potassium (3.3-5.1) mmol/L Chloride (96-108) mmol/L Carbon Dioxide (22-29) mmol/L Anion Gap (12-20) BUN (9-16) mg/dL Creatinine (0.5-1.4) mg/dL Estim Creat Clear Calc Estimated GFR Random Glucose (60-115) mg/dL Calcium (8.4-10.2) mg/dL Magnesium (1.6-2.6) mg/dL Total Bilirubin (0.0-1.0) mg/dL Direct Bilirubin (0.0-0.5) mg/dL AST (5-37) U/L ALT (0-40) U/L Alkaline Phosphatase (39-117) U/L Total Protein (6.5-8.0) g/dL Albumin (3.5-5.0) g/dL Urine Opiates Screen Not Detected (Not Detect) Urine Fentanyl Screen Not Detected (Not Detect) Ur Barbiturates Screen Not Detected (Not Detect) Valproic Acid 17.1 L (50.0-100.0) mcg/mL Ur Phencyclidine Scrn Not Detected (Not Detect) Ur Amphetamines Screen Not Detected (Not Detect) U Benzodiazepines Scrn Not Detected (Not Detect) Urine Cocaine Screen Not Detected (Not Detect) U Marijuana (THC) Screen POSITIVE H (Not Detect) Ethyl Alcohol mg/dL COVID-19 (JESS) (Negative) COVID-19 Clin Com <Chapo Woodall MD - Last Filed: 07/14/22 08:16> Lab Results 07/13/22 07/13/22 07/13/22 Range/Units 11:12 11:12 11:12 WBC 11.3 H (4.8-10.8) X10*3/uL RBC 5.22 (4.60-5.80) X10*6/uL Hgb 16.8 (14.0-18.0) g/dl Hct 47.1 (42.0-52.0) % MCV 90.2 (80.0-98.0) fL MCH 32.2 (27.0-33.0) pg MCHC 35.7 (31.0-36.0) g/dl RDW 11.7 (11.0-16.0) % Plt Count 224 D (160-400) X10*3/uL MPV 10.4 (9.4-12.4) fL Immature Gran % (Auto) 0.3 (0.0-0.4) % Neut % (Auto) 75.0 H (45-73) % Lymph % (Auto) 14.0 L (20-40) % [place] % (Auto) 10.1 (2-11) % Eos % (Auto) 0.2 (0-4) % Baso % (Auto) 0.4 (0-2) % Lymph # (Auto) 1.6 (1.2-4.9) X10*3/uL [place] # (Auto) 1.1 (0.1-1.2) X10*3/uL Eos # (Auto) 0.0 (0.0-0.4) X10*3/uL Baso # (Auto) 0.0 (0.0-0.2) X10*3/uL Abs Immat Gran (auto) 0.03 (0.00-0.03) X10*3/uL Absolute Neuts (auto) 8.5 H (2.0-8.3) x10*3/uL Absolute Nucleated RBC 0.000 (0.0-0.012) X10*3/uL Nucleated RBC % (auto) 0.0 (0.0-0.2) /100WBC Sodium 137 (135-145) mmol/L Potassium 3.9 (3.3-5.1) mmol/L Chloride 100 (96-108) mmol/L Carbon Dioxide 23 (22-29) mmol/L Anion Gap 18 (12-20) BUN 25 H D (9-16) mg/dL Creatinine 1.29 (0.5-1.4) mg/dL Estim Creat Clear Calc 104.2 Estimated GFR > 60 Random Glucose 175 H D (60-115) mg/dL Calcium 9.6 D (8.4-10.2) mg/dL Magnesium 2.3 (1.6-2.6) mg/dL Total Bilirubin 1.8 H (0.0-1.0) mg/dL Direct Bilirubin 0.6 H (0.0-0.5) mg/dL AST 36 D (5-37) U/L ALT 30 (0-40) U/L Alkaline Phosphatase 55 D (39-117) U/L Total Protein 8.4 H D (6.5-8.0) g/dL Albumin 5.1 H D (3.5-5.0) g/dL Urine Opiates Screen (Not Detect) Urine Fentanyl Screen (Not Detect) Ur Barbiturates Screen (Not Detect) Valproic Acid (50.0-100.0) mcg/mL Ur Phencyclidine Scrn (Not Detect) Ur Amphetamines Screen (Not Detect) U Benzodiazepines Scrn (Not Detect) Urine Cocaine Screen (Not Detect) U Marijuana (THC) Screen (Not Detect) Ethyl Alcohol < 10 mg/dL COVID-19 (JESS) Negative (Negative) COVID-19 Clin Com See Note 07/13/22 07/13/22 Range/Units 12:12 13:09 WBC (4.8-10.8) X10*3/uL RBC (4.60-5.80) X10*6/uL Hgb (14.0-18.0) g/dl Hct (42.0-52.0) % MCV (80.0-98.0) fL MCH (27.0-33.0) pg MCHC (31.0-36.0) g/dl RDW (11.0-16.0) % Plt Count (160-400) X10*3/uL MPV (9.4-12.4) fL Immature Gran % (Auto) (0.0-0.4) % Neut % (Auto) (45-73) % Lymph % (Auto) (20-40) % [place] % (Auto) (2-11) % Eos % (Auto) (0-4) % Baso % (Auto) (0-2) % Lymph # (Auto) (1.2-4.9) X10*3/uL [place] # (Auto) (0.1-1.2) X10*3/uL Eos # (Auto) (0.0-0.4) X10*3/uL Baso # (Auto) (0.0-0.2) X10*3/uL Abs Immat Gran (auto) (0.00-0.03) X10*3/uL Absolute Neuts (auto) (2.0-8.3) x10*3/uL Absolute Nucleated RBC (0.0-0.012) X10*3/uL Nucleated RBC % (auto) (0.0-0.2) /100WBC Sodium (135-145) mmol/L Potassium (3.3-5.1) mmol/L Chloride (96-108) mmol/L Carbon Dioxide (22-29) mmol/L Anion Gap (12-20) BUN (9-16) mg/dL Creatinine (0.5-1.4) mg/dL Estim Creat Clear Calc Estimated GFR Random Glucose (60-115) mg/dL Calcium (8.4-10.2) mg/dL Magnesium (1.6-2.6) mg/dL Total Bilirubin (0.0-1.0) mg/dL Direct Bilirubin (0.0-0.5) mg/dL AST (5-37) U/L ALT (0-40) U/L Alkaline Phosphatase (39-117) U/L Total Protein (6.5-8.0) g/dL Albumin (3.5-5.0) g/dL Urine Opiates Screen Not Detected (Not Detect) Urine Fentanyl Screen Not Detected (Not Detect) Ur Barbiturates Screen Not Detected (Not Detect) Valproic Acid 17.1 L (50.0-100.0) mcg/mL Ur Phencyclidine Scrn Not Detected (Not Detect) Ur Amphetamines Screen Not Detected (Not Detect) U Benzodiazepines Scrn Not Detected (Not Detect) Urine Cocaine Screen Not Detected (Not Detect) U Marijuana (THC) Screen POSITIVE H (Not Detect) Ethyl Alcohol mg/dL COVID-19 (JESS) (Negative) COVID-19 Clin Com <Aureliano Arrington MD - Last Filed: 07/15/22 07:52> Discharge Plan Discharge Clinical Impression: Bipolar I disorder with deja <GARRY Rm - Last Filed: 07/13/22 16:35> Patient Disposition: Still a Patient <GARRY Rm - Last Filed: 07/13/22 16:35> Prescriptions: No Action lithium carbonate 450 mg Tablet Extended Release 900 mg PO BEDTIME Qty: 6 0RF hydrocortisone 1 % Cream 1 appl topical BID PRN (Reason: eczema) Qty: 1 0RF Protocol: Apply to: Apply to: affected areas divalproex 500 mg Tablet Extended Release 24 Hr 1,500 mg PO BEDTIME Qty: 90 0RF divalproex 250 mg Tablet Extended Release 24 Hr 250 mg PO BEDTIME Qty: 30 0RF ziprasidone HCl 80 mg capsule 160 mg PO BEDTIME Qty: 60 0RF benztropine 1 mg tablet 1 mg PO DAILY Qty: 30 0RF hydroxyzine pamoate 25 mg capsule 1 cap PO TID PRN (Reason: Anxiety) melatonin 3 mg tablet 3 mg PO BEDTIME <GARRY Rm - Last Filed: 07/13/22 16:35>
--- NOTE | 2022-07-13 10:46 | PC.NURSE ---
client remained reluctant (after antagonizing various staff for about thirty minutes).
[2022-07-13 11:17] LABS: MANUAL DIFF FLAG NO
[2022-07-13 11:21] LABS: Basophils Percent Auto 0.4 % (0-2); Eosinophils Percent Auto 0.2 % (0-4); Hematocrit 47.1 % (42.0-52.0); Hemoglobin 16.8 g/dl (14.0-18.0); Imm Gran Abs Auto 0.03 X10*3/uL (0.00-0.03); Imm Gran Pct Auto 0.3 % (0.0-0.4); Lymphocytes Absolute Auto 1.6 X10*3/uL (1.2-4.9); Mean Corpuscular HGB Conc 35.7 g/dl (31.0-36.0); Mean Corpuscular Hemoglobin 32.2 pg (27.0-33.0); Mean Corpuscular Volume 90.2 fL (80.0-98.0); Mean Platelet Volume 10.4 fL (9.4-12.4); Monocytes Absolute Auto 1.1 X10*3/uL (0.1-1.2); Monocytes Percent Auto 10.1 % (2-11); Neutrophils Absolute Auto 8.5 x10*3/uL (2.0-8.3); Platelet Count 224 X10*3/uL (160-400); Red Blood Count 5.22 X10*6/uL (4.60-5.80); Red Cell Distribution Width 11.7 % (11.0-16.0); White Blood Count 11.3 X10*3/uL (4.8-10.8)
[2022-07-13 11:31] VITALS: BP 150/92; PULSE 111; RESP 18; TEMP 36.2; O2SAT 97
[2022-07-13 11:44] LABS: COVID-19 Test Negative (Negative); IDNOW Serial# 9DB6401D
[2022-07-13 11:52] LABS: Alanine Aminotransferase 30 U/L (0-40); Albumin Level 5.1 g/dL (3.5-5.0); Alkaline Phosphatase 55 U/L (39-117); Anion Gap 18 (12-20); Aspartate Amino Transferase 36 U/L (5-37); Bilirubin Direct 0.6 mg/dL (0.0-0.5); Bilirubin Total 1.8 mg/dL (0.0-1.0); Blood Urea Nitrogen 25 mg/dL (9-16); Calcium 9.6 mg/dL (8.4-10.2); Carbon Dioxide 23 mmol/L (22-29); Chloride 100 mmol/L (96-108); Creatinine Clr Calc Pharmacy 104.2; Estimated Glomerular Filt Rate > 60; Ethanol < 10 mg/dL; Glucose Random 175 mg/dL (60-115); Magnesium 2.3 mg/dL (1.6-2.6); Potassium 3.9 mmol/L (3.3-5.1); Sodium 137 mmol/L (135-145); Total Protein 8.4 g/dL (6.5-8.0)
[2022-07-13 12:00] VITALS: RESP 18
--- NOTE | 2022-07-13 12:38 | PC.NURSE ---
attempted to obtain urine sample, pt filled cup with water. Education provided regarding urine sample color/temperature required for adequate urine sample.
[2022-07-13 12:48] LABS: Valproate 17.1 mcg/mL (50.0-100.0)
[2022-07-13 13:29] LABS: Amphetamine Screen Urine Not Detected (Not Detect); Barbiturates, Urine Not Detected (Not Detect); Benzodiazepines Screen Urine Not Detected (Not Detect); Cannabinoid Screen Urine POSITIVE (Not Detect); Cocaine Screen Urine Not Detected (Not Detect); Fentanyl, urine Not Detected (Not Detect); Opiate Screen Urine Not Detected (Not Detect); Phencyclidine Screen Urine Not Detected (Not Detect)
[2022-07-13 16:00] VITALS: RESP 16
--- NOTE | 2022-07-13 18:38 | PHA.MEDREC ---
Pharmacy Consult ? Medication Reconciliation Pharmacy has completed the medication reconciliation. spoke with pt
--- NOTE | 2022-07-14 06:02 | PC.NURSE ---
Patient slept through the night, no distress observed/reported, no behavior concern at this time but thought content paranoid, MAR updated and active, disposition per care team is section 12 inpatient bed search, pending M5 admission, will continue to monitor.
[2022-07-14 06:23] VITALS: BP 112/67; PULSE 77; RESP 16; TEMP 36.4; O2SAT 95
[2022-07-14] MEDS: Benztropine Mesylate 1 MG TABLET PO (10:15)
--- NOTE | 2022-07-14 10:44 | PC.NURSE ---
patient appears to remain asleep at present respirations are even and unlabored patient appears in no distress
[2022-07-14] MEDS: Divalproex Sodium ER 500 MG TAB.ER.24H 1500 MG PO (20:51)
[2022-07-14] MEDS: Divalproex Sodium ER 250 MG TAB.ER.24H PO (20:52)
[2022-07-14] MEDS: Melatonin 3 MG TABLET PO (20:52)
[2022-07-14] MEDS: Lithium Carbonate ER 450 MG TABLET.ER 900 MG PO (20:52)
[2022-07-14] MEDS: Ziprasidone 80 MG CAPSULE 160 MG PO (20:55)
--- NOTE | 2022-07-15 06:19 | PC.NURSE ---
Patient slept through the night, no distress observed/reported, behavior isolative non concerning, disposition per [facility] is section 12 inpatient bed search, medication compliant, VSS, will continue to monitor.
[2022-07-15 06:23] VITALS: BP 127/74; PULSE 90; RESP 17; TEMP 36.8; O2SAT 97
[2022-07-15] MEDS: Benztropine Mesylate 1 MG TABLET PO (11:35)
--- NOTE | 2022-07-15 12:48 | PC.NURSE ---
pts father (Kole) here to visit pt. pt kicked father out. father spoke with t/w regarding pts safety and his hope for an inpatient bed. per father, pt started taking CBD and shortly after he started to notice a decline in the pts mental status. Father recalled a time very recently where the pt left the home in the middle of the night and was not found until the next more. pt is blunt and short during conversations with t.w, per father, pt recently has been more angry, aggressive without being violent, and delusional (making statements that he is God). pt lives with father and father has been in charge of pts care and providing his medications at home.
[2022-07-15 14:08] LABS: COVID-19 Test Negative (Negative)
[2022-07-15 16:40] VITALS: BP 137/75; PULSE 76; RESP 18; TEMP 36.6; O2SAT 97
--- NOTE | 2022-07-15 21:10 | PC.ADMIT ---
Nadeem is a 32 year cisgender admitted to [facility] from the [facility] on a 12a. Pt is alert & oriented x3 , calm , thought blocking, paranoid. Pt reports depression , denies anxiety reports depression. Pt unable to engage in the admission process, responds with I don't know to most of the questions. When asked about SI /HI pt says only murders beats . Patient reports hearing voices says its good people, my friends telling me good things only per initial evaluation report pt had delusions with command hallucinations. Pt denies pain or medical concerns.
[2022-07-15] MEDS: Divalproex Sodium ER 500 MG TAB.ER.24H 1500 MG PO (21:21)
[2022-07-15] MEDS: Divalproex Sodium ER 250 MG TAB.ER.24H PO (21:21)
[2022-07-15] MEDS: Melatonin 3 MG TABLET PO (21:21)
[2022-07-15] MEDS: Lithium Carbonate ER 450 MG TABLET.ER 900 MG PO (21:21)
[2022-07-15] MEDS: Ziprasidone 80 MG CAPSULE 160 MG PO (21:21)
[2022-07-16 06:00] VITALS: BP 129/58; PULSE 59; RESP 16; TEMP 36.4; O2SAT 97
[2022-07-16] MEDS: Benztropine Mesylate 1 MG TABLET PO (08:58)
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
[2022-07-16 16:30] VITALS: BP 135/78; PULSE 95; TEMP 36.2
[2022-07-16] MEDS: Divalproex Sodium ER 500 MG TAB.ER.24H 1500 MG PO (20:56)
[2022-07-16] MEDS: Ziprasidone 80 MG CAPSULE 160 MG PO (20:56)
[2022-07-16] MEDS: Divalproex Sodium ER 250 MG TAB.ER.24H PO (20:57)
[2022-07-16] MEDS: Melatonin 3 MG TABLET PO (20:57)
[2022-07-16] MEDS: Lithium Carbonate ER 450 MG TABLET.ER 900 MG PO (20:57)
[2022-07-17 06:00] VITALS: BP 136/68; PULSE 69; RESP 16; TEMP 35.9; O2SAT 98
[2022-07-17] MEDS: Benztropine Mesylate 1 MG TABLET PO (08:30)
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
[2022-07-17 18:00] VITALS: RESP 16
[2022-07-17] MEDS: Ziprasidone 80 MG CAPSULE 160 MG PO (20:56)
[2022-07-17] MEDS: OLANZapine 5 MG TABLET PO (20:56)
[2022-07-17] MEDS: Divalproex Sodium ER 500 MG TAB.ER.24H 1500 MG PO (20:56)
[2022-07-17] MEDS: Lithium Carbonate ER 450 MG TABLET.ER 900 MG PO (20:57)
[2022-07-17] MEDS: Melatonin 3 MG TABLET PO (20:58)
[2022-07-17] MEDS: Divalproex Sodium ER 250 MG TAB.ER.24H PO (20:58)
[2022-07-18 08:27] VITALS: BP 134/84; PULSE 69; RESP 18; TEMP 36.3; O2SAT 99
[2022-07-18] MEDS: Benztropine Mesylate 1 MG TABLET PO (08:27)
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
[2022-07-18 18:00] VITALS: BP 164/74; PULSE 96; TEMP 37.3; O2SAT 95
[2022-07-18] MEDS: Divalproex Sodium ER 500 MG TAB.ER.24H 1500 MG PO (20:51)
[2022-07-18] MEDS: OLANZapine 5 MG TABLET PO (20:51)
[2022-07-18] MEDS: Ziprasidone 80 MG CAPSULE 160 MG PO (20:52)
[2022-07-18] MEDS: Lithium Carbonate ER 450 MG TABLET.ER 900 MG PO (20:53)
[2022-07-18] MEDS: Melatonin 3 MG TABLET PO (20:53)
[2022-07-18] MEDS: Divalproex Sodium ER 250 MG TAB.ER.24H PO (20:53)
[2022-07-19 06:39] VITALS: BP 131/70; PULSE 100; TEMP 36.1; O2SAT 98
[2022-07-19 07:00] VITALS: BMI 34.1
[2022-07-19] MEDS: Benztropine Mesylate 1 MG TABLET PO (08:30)
--- NOTE | 2022-07-19 15:43 | HO.PSYCHPN ---
Subjective Subjective Date of Service: 07/19/22 Reason For Visit: manic Subjective Notes: 3 Day Healthcare Proxy: No Guardianship: No Medical Problems Affecting Mental Status: No Interim History: Three day notice to 07/24/22. Isolative, in bed, angry- I never know why I am in these places-they just put me here. I am tired of this-I feel like I am in care home having done nothing wrong. Medication Compliance: Yes Side effects from medications: No Attending Groups: No Review of Systems Acute medical concerns: No Medical Review of Systems: unchanged Review of Systems Reports behavioral changes Psychiatric: Reports behavioral changes, Reports depression, Reports auditory hallucinations, Reports hopelessness, Reports irritability, Reports anhedonia, Reports mood swings and Reports paranoia Mental Status Exam Mental Status Exam Patient Appearance: Fatigued and Appropriate Patient Orientation: Person, Place, Time and Situation Level of Consciousness: Alert Patient Behavior: Talkative and Good Eye Contact Mood Description: Hostile, Angry and Flat Affect Description: Hostile and Flat Patient Cognition Impaired: No Ability to Follow Directions: Good Speech Pattern: Spontaneous Speech Memory Description: Episodic Impaired Hallucinations: None and Auditory Perceptual Disturbances: Depersonalization Thought Process: Distracted and Rumination Thought Content: positive for Circumstantial Depressive Symptoms: Increased Irritability, Loss of Int. in Activity, Isolating-Friends/Family and Increased Fatigue Judgement: Poor Diagnostics Vital Signs (24Hr): Vital Signs - 24 hr 07/18/22 18:00 07/19/22 06:39 Temperature 99.2 F 97.0 F Pulse Rate 96 100 Blood Pressure 164/74 H 131/70 Pulse Oximetry 95 98 Oxygen Delivery Method Room Air BMI result Body Mass Index 34.1 Labs Results: 07/13/22 11:12 07/13/22 11:12 Medications Medications Current Medications Acetaminophen (Acetaminophen 325 Mg Tablet) 650 mg PO Q6H PRN PRN Reason: Headache/Pain Mild Scale (1-3) Al Hydroxide/Mg Hydroxide (Magnesium Hydrox/Alum Hydrox 30 Ml Oral.Susp) 30 ml PO Q6H PRN PRN Reason: Heartburn/Nausea Benztropine Mesylate (Benztropine Mesylate 1 Mg Tablet) 1 mg PO DAILY [facility] Last Admin: 07/19/22 08:30 Dose: 1 mg Diphenhydramine HCl (Diphenhydramine Hcl 25 Mg Tablet) 50 mg PO Q4H PRN PRN Reason: agitation Divalproex Sodium (Divalproex Sodium Er 250 Mg Tab.Er.24h) 250 mg PO BEDTIME [facility] Last Admin: 07/18/22 20:53 Dose: 250 mg Divalproex Sodium (Divalproex Sodium Er 500 Mg Tab.Er.24h) 1,500 mg PO BEDTIME [facility] Last Admin: 07/18/22 20:51 Dose: 1,500 mg Haloperidol (Haloperidol 5 Mg Tablet) 5 mg PO Q4H PRN PRN Reason: agitation Hydroxyzine HCl (Hydroxyzine Hcl 25 Mg Tablet) 25 mg PO TID PRN PRN Reason: Anxiety [place] Carbonate ([place] Carbonate Er 450 Mg Tablet.Er) 900 mg PO BEDTIME [facility] Last Admin: 07/18/22 20:53 Dose: 900 mg Lorazepam (Lorazepam 1 Mg Tablet) 2 mg PO Q4H PRN PRN Reason: agitation Magnesium Hydroxide (Milk Of Magnesia 30 Ml Oral.Susp) 30 ml PO DAILY PRN PRN Reason: Constipation Melatonin (Melatonin 3 Mg Tablet) 3 mg PO BEDTIME [facility] Last Admin: 07/18/22 20:53 Dose: 3 mg Nicotine Polacrilex (Nicotine Polacrilex 2 Mg Gum) 4 mg BUCCAL Q2H PRN PRN Reason: Nicotine Cravings Olanzapine (Olanzapine 5 Mg Tablet) 5 mg PO BEDTIME [facility] Last Admin: 07/18/22 20:51 Dose: 5 mg Trazodone HCl (Trazodone Hcl 50 Mg Tablet) 50 mg PO BEDTIME PRN PRN Reason: Insomnia Ziprasidone (Ziprasidone 80 Mg Capsule) 160 mg PO BEDTIME [facility] Last Admin: 07/18/22 20:52 Dose: 160 mg Allergies Allergies Allergy/AdvReac Type Severity Reaction Status Date / Time sulfamethoxazole AdvReac Intermediate Rash Verified 04/22/22 19:17 [From Bactrim] trimethoprim [From Bactrim] AdvReac Intermediate Rash Verified 04/22/22 19:17 cefaclor [From Ceclor] AdvReac Rash Verified 04/22/22 19:18 Assessment & Plan Assessment & Plan (1) Bipolar disorder with psychotic features: Status: Acute Code(s): F31.9 - Bipolar disorder, unspecified (2) Cannabis use disorder, moderate, dependence: Status: Acute Code(s): F12.20 - Cannabis dependence, uncomplicated I spent minutes with the patient and/or on the patient floor today, greater than?50% of which was spent counseling/coordinating care. Patient educated on: therapeutic strategies Informed Consent: further education needed Reason for contiued inpatient stay Substantial Risk for: rapid decompensation
[2022-07-19 18:00] VITALS: BP 134/90; PULSE 86; RESP 18; TEMP 36.6; O2SAT 98
--- NOTE | 2022-07-19 18:04 | PC.NURSE ---
pt. signed 3 day on 07/19 up on 07/24
[2022-07-19] MEDS: Melatonin 3 MG TABLET PO (20:03)
[2022-07-19] MEDS: OLANZapine 5 MG TABLET PO (20:03)
[2022-07-19] MEDS: Lithium Carbonate ER 450 MG TABLET.ER 900 MG PO (20:03)
[2022-07-19] MEDS: Ziprasidone 80 MG CAPSULE 160 MG PO (20:03)
[2022-07-19] MEDS: Divalproex Sodium ER 500 MG TAB.ER.24H 1500 MG PO (20:03)
[2022-07-19] MEDS: Divalproex Sodium ER 250 MG TAB.ER.24H PO (20:37)
[2022-07-20 06:25] VITALS: BP 113/71; PULSE 69; TEMP 35.7
[2022-07-20] MEDS: Benztropine Mesylate 1 MG TABLET PO (08:11)
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
[2022-07-20 18:00] VITALS: RESP 16
[2022-07-20] MEDS: Melatonin 3 MG TABLET PO (20:13)
[2022-07-20] MEDS: Lithium Carbonate ER 450 MG TABLET.ER 900 MG PO (20:13)
[2022-07-20] MEDS: Divalproex Sodium ER 250 MG TAB.ER.24H PO (20:13)
[2022-07-20] MEDS: Divalproex Sodium ER 500 MG TAB.ER.24H 1500 MG PO (20:13)
[2022-07-20] MEDS: Ziprasidone 80 MG CAPSULE 160 MG PO (20:13)
[2022-07-20] MEDS: OLANZapine 5 MG TABLET PO (20:14)
[2022-07-20] MEDS: Acetaminophen 325 MG TABLET 650 MG PO (20:41)
[2022-07-21 06:00] VITALS: BP 129/84; PULSE 66; RESP 16; TEMP 36.5; O2SAT 98
[2022-07-21] MEDS: Benztropine Mesylate 1 MG TABLET PO (08:39)
[2022-07-21 18:00] VITALS: BP 169/95; PULSE 95; RESP 20; TEMP 36.6; O2SAT 95
[2022-07-21] MEDS: Lithium Carbonate ER 450 MG TABLET.ER 900 MG PO (20:23)
[2022-07-21] MEDS: traZODone HCL 50 MG TABLET PO (20:23)
[2022-07-21] MEDS: Melatonin 3 MG TABLET PO (20:23)
[2022-07-21] MEDS: Divalproex Sodium ER 250 MG TAB.ER.24H PO (20:23)
[2022-07-21] MEDS: Divalproex Sodium ER 500 MG TAB.ER.24H 1500 MG PO (20:24)
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
[2022-07-21] MEDS: HaloperidoL 5 MG TABLET PO (20:41)
[2022-07-22 06:00] VITALS: BP 141/75; PULSE 76; RESP 18; TEMP 36.6; O2SAT 98
[2022-07-22] MEDS: Benztropine Mesylate 1 MG TABLET PO ×2 (09:59→20:47)
[2022-07-22] MEDS: HaloperidoL 5 MG TABLET 10 MG PO ×2 (09:59→23:41)
[2022-07-22] MEDS: diazePAM 2 MG TABLET PO ×3 (09:59→19:17)
[2022-07-22 18:00] VITALS: BP 131/77; PULSE 82; RESP 20; TEMP 36.9; O2SAT 97
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
[2022-07-22] MEDS: Divalproex Sodium ER 250 MG TAB.ER.24H PO (20:47)
[2022-07-22] MEDS: HaloperidoL 5 MG TABLET PO (20:47)
[2022-07-22] MEDS: Melatonin 3 MG TABLET PO (20:47)
[2022-07-22] MEDS: Divalproex Sodium ER 500 MG TAB.ER.24H 1500 MG PO (20:48)
[2022-07-22] MEDS: Lithium Carbonate ER 450 MG TABLET.ER 900 MG PO (20:48)
[2022-07-23 06:00] VITALS: BP 133/78; PULSE 68; RESP 16; TEMP 35.8; O2SAT 100
[2022-07-23] MEDS: Benztropine Mesylate 1 MG TABLET PO ×2 (08:42→19:32)
[2022-07-23] MEDS: HaloperidoL 5 MG TABLET 10 MG PO (08:43)
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
[2022-07-23 19:15] VITALS: BP 114/59; PULSE 76; TEMP 36.8
[2022-07-23] MEDS: Divalproex Sodium ER 500 MG TAB.ER.24H 1500 MG PO (19:29)
[2022-07-23] MEDS: Lithium Carbonate ER 450 MG TABLET.ER 900 MG PO (19:30)
[2022-07-23] MEDS: Divalproex Sodium ER 250 MG TAB.ER.24H PO (19:30)
[2022-07-23] MEDS: Melatonin 3 MG TABLET PO (19:32)
[2022-07-24 06:00] VITALS: BP 117/66; PULSE 65; RESP 16; TEMP 35.6
[2022-07-24] MEDS: Benztropine Mesylate 1 MG TABLET PO ×2 (08:11→20:41)
[2022-07-24 18:00] VITALS: BP 150/98; PULSE 95; TEMP 36.9; O2SAT 98
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
[2022-07-24] MEDS: Divalproex Sodium ER 250 MG TAB.ER.24H PO (20:43)
[2022-07-24] MEDS: Divalproex Sodium ER 500 MG TAB.ER.24H 1500 MG PO (20:43)
[2022-07-24] MEDS: Lithium Carbonate ER 450 MG TABLET.ER 900 MG PO (20:43)
[2022-07-24] MEDS: Melatonin 3 MG TABLET PO (20:44)
[2022-07-24] MEDS: HaloperidoL 5 MG TABLET 10 MG PO (20:46)
[2022-07-25 05:29] VITALS: BP 122/77; PULSE 67; RESP 18; TEMP 36.6; O2SAT 96
[2022-07-25] MEDS: diazePAM 2 MG TABLET 1 MG PO ×2 (06:50→14:08)
[2022-07-25] MEDS: HaloperidoL 5 MG TABLET 10 MG PO ×2 (08:51→20:42)
[2022-07-25] MEDS: Benztropine Mesylate 1 MG TABLET PO ×2 (08:51→20:43)
[2022-07-25 17:19] VITALS: BP 98/50; PULSE 70; RESP 16; TEMP 36.5; O2SAT 99
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
[2022-07-25] MEDS: Melatonin 3 MG TABLET PO (20:42)
[2022-07-25] MEDS: Divalproex Sodium ER 250 MG TAB.ER.24H PO (20:42)
[2022-07-25] MEDS: Lithium Carbonate ER 450 MG TABLET.ER 900 MG PO (20:43)
[2022-07-25] MEDS: Divalproex Sodium ER 500 MG TAB.ER.24H 1500 MG PO (20:43)
[2022-07-25] MEDS: diazePAM 2 MG TABLET PO (21:47)
[2022-07-26 07:00] VITALS: BMI 34.2
[2022-07-26] MEDS: Cariprazine HCl 1.5 MG CAPSULE PO (08:21)
[2022-07-26] MEDS: HaloperidoL 5 MG TABLET 10 MG PO (08:21)
[2022-07-26] MEDS: Benztropine Mesylate 1 MG TABLET PO ×2 (08:22→19:18)
[2022-07-26 08:26] VITALS: BP 131/82; PULSE 78; RESP 18; TEMP 36.3; O2SAT 98
[2022-07-26] MEDS: diazePAM 2 MG TABLET 1 MG PO ×2 (15:26→19:46)
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
[2022-07-26 17:17] VITALS: BP 122/84; PULSE 86; RESP 16; TEMP 36.6; O2SAT 99
[2022-07-26] MEDS: Divalproex Sodium ER 500 MG TAB.ER.24H 1500 MG PO (19:16)
[2022-07-26] MEDS: Divalproex Sodium ER 250 MG TAB.ER.24H PO (19:16)
[2022-07-26] MEDS: HaloperidoL 5 MG TABLET 15 MG PO (19:17)
[2022-07-26] MEDS: Lithium Carbonate ER 450 MG TABLET.ER 900 MG PO (19:18)
[2022-07-26] MEDS: Melatonin 3 MG TABLET PO (19:18)
[2022-07-27 08:19] VITALS: BP 145/67; PULSE 62; TEMP 36.3
[2022-07-27] MEDS: Benztropine Mesylate 1 MG TABLET PO ×2 (08:23→19:24)
[2022-07-27] MEDS: Cariprazine HCl 1.5 MG CAPSULE PO (08:23)
[2022-07-27] MEDS: diazePAM 2 MG TABLET 1 MG PO ×3 (10:42→19:44)
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
[2022-07-27 17:40] VITALS: BP 134/91; PULSE 98; RESP 18; TEMP 36.7; O2SAT 97
[2022-07-27] MEDS: Divalproex Sodium ER 250 MG TAB.ER.24H PO (19:23)
[2022-07-27] MEDS: Divalproex Sodium ER 500 MG TAB.ER.24H 1500 MG PO (19:23)
[2022-07-27] MEDS: HaloperidoL 5 MG TABLET 15 MG PO (19:23)
[2022-07-27] MEDS: Melatonin 3 MG TABLET PO (19:24)
[2022-07-27] MEDS: Lithium Carbonate ER 450 MG TABLET.ER 900 MG PO (19:24)
[2022-07-28 07:44] LABS: MANUAL DIFF FLAG NO
[2022-07-28 07:47] LABS: Basophils Percent Auto 0.5 % (0-2); Eosinophils Absolute Auto 0.1 X10*3/uL (0.0-0.4); Eosinophils Percent Auto 2.2 % (0-4); Hemoglobin 14.8 g/dl (14.0-18.0); Imm Gran Abs Auto 0.01 X10*3/uL (0.00-0.03); Imm Gran Pct Auto 0.2 % (0.0-0.4); Lymphocytes Absolute Auto 2.2 X10*3/uL (1.2-4.9); Lymphocytes Percent Auto 39.2 % (20-40); Mean Corpuscular HGB Conc 35.2 g/dl (31.0-36.0); Mean Corpuscular Hemoglobin 32.1 pg (27.0-33.0); Mean Corpuscular Volume 91.1 fL (80.0-98.0); Mean Platelet Volume 10.3 fL (9.4-12.4); Monocytes Absolute Auto 0.6 X10*3/uL (0.1-1.2); Monocytes Percent Auto 11.6 % (2-11); Neutrophils Absolute Auto 2.6 x10*3/uL (2.0-8.3); Neutrophils Percent Auto 46.3 % (45-73); Platelet Count 181 X10*3/uL (160-400); Red Blood Count 4.61 X10*6/uL (4.60-5.80); Red Cell Distribution Width 11.9 % (11.0-16.0); White Blood Count 5.5 X10*3/uL (4.8-10.8)
[2022-07-28 08:07] LABS: Lithium 0.73 mmol/L (0.60-1.20)
[2022-07-28 08:19] LABS: Alanine Aminotransferase 47 U/L (0-40); Albumin Level 4.2 g/dL (3.5-5.0); Alkaline Phosphatase 50 U/L (39-117); Anion Gap 17 (12-20); Aspartate Amino Transferase 22 U/L (5-37); Bilirubin Total 0.7 mg/dL (0.0-1.0); Blood Urea Nitrogen 14 mg/dL (9-16); Calcium 9.1 mg/dL (8.4-10.2); Carbon Dioxide 23 mmol/L (22-29); Chloride 104 mmol/L (96-108); Creatinine Clr Calc Pharmacy 171.4; Estimated Glomerular Filt Rate > 60; Glucose Random 85 mg/dL (60-115); Potassium 4.5 mmol/L (3.3-5.1); Sodium 139 mmol/L (135-145); Total Protein 7.2 g/dL (6.5-8.0)
[2022-07-28 08:25] LABS: Valproate 60.3 mcg/mL (50.0-100.0)
[2022-07-28 09:10] VITALS: BP 137/70; PULSE 80; TEMP 36.6
[2022-07-28] MEDS: Benztropine Mesylate 1 MG TABLET PO ×2 (09:14→19:54)
[2022-07-28] MEDS: Cariprazine HCl 3 MG CAPSULE PO (09:14)
[2022-07-28] MEDS: diazePAM 2 MG TABLET 1 MG PO ×3 (09:14→19:54)
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
[2022-07-28] MEDS: Melatonin 3 MG TABLET PO (19:53)
[2022-07-28] MEDS: Lithium Carbonate ER 450 MG TABLET.ER 900 MG PO (19:53)
[2022-07-28] MEDS: HaloperidoL 5 MG TABLET 15 MG PO (19:53)
[2022-07-28] MEDS: Divalproex Sodium ER 500 MG TAB.ER.24H 1500 MG PO (19:53)
[2022-07-28] MEDS: Divalproex Sodium ER 250 MG TAB.ER.24H PO (19:54)
[2022-07-28 20:03] VITALS: BP 136/69; PULSE 79; RESP 16; TEMP 36.9
[2022-07-29 06:00] VITALS: BP 119/76; PULSE 71; RESP 18; TEMP 36.3; O2SAT 98
[2022-07-29] MEDS: Benztropine Mesylate 1 MG TABLET PO ×2 (08:24→19:44)
[2022-07-29] MEDS: Cariprazine HCl 3 MG CAPSULE PO (08:24)
[2022-07-29] MEDS: diazePAM 2 MG TABLET 1 MG PO ×3 (08:26→19:45)
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
[2022-07-29 18:00] VITALS: BP 126/78; PULSE 74; RESP 16; TEMP 36.7
[2022-07-29] MEDS: Melatonin 3 MG TABLET PO (19:44)
[2022-07-29] MEDS: HaloperidoL 5 MG TABLET 15 MG PO (19:44)
[2022-07-29] MEDS: Divalproex Sodium ER 250 MG TAB.ER.24H PO (19:45)
[2022-07-29] MEDS: Divalproex Sodium ER 500 MG TAB.ER.24H 1500 MG PO (19:45)
[2022-07-29] MEDS: Lithium Carbonate ER 450 MG TABLET.ER 900 MG PO (19:46)
[2022-07-30] MEDS: Cariprazine HCl 3 MG CAPSULE PO (07:44)
[2022-07-30] MEDS: Benztropine Mesylate 1 MG TABLET PO ×2 (07:44→19:52)
[2022-07-30] MEDS: diazePAM 2 MG TABLET 1 MG PO ×2 (07:47→15:01)
[2022-07-30 07:57] VITALS: BP 125/60; PULSE 70; RESP 18; TEMP 36.3; O2SAT 97
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
[2022-07-30 18:00] VITALS: BP 138/83; PULSE 85; RESP 16; TEMP 37.1
[2022-07-30] MEDS: Divalproex Sodium ER 500 MG TAB.ER.24H 1500 MG PO (19:52)
[2022-07-30] MEDS: Lithium Carbonate ER 450 MG TABLET.ER 900 MG PO (19:52)
[2022-07-30] MEDS: HaloperidoL 5 MG TABLET 15 MG PO (19:52)
[2022-07-30] MEDS: Melatonin 3 MG TABLET PO (19:52)
[2022-07-30] MEDS: Divalproex Sodium ER 250 MG TAB.ER.24H PO (20:31)
[2022-07-31 06:24] VITALS: BP 136/78; PULSE 63; RESP 17; TEMP 36.2; O2SAT 97
[2022-07-31] MEDS: Benztropine Mesylate 1 MG TABLET PO ×2 (08:19→20:00)
[2022-07-31] MEDS: Cariprazine HCl 3 MG CAPSULE PO (08:19)
[2022-07-31] MEDS: diazePAM 2 MG TABLET 1 MG PO ×3 (08:22→20:06)
[2022-07-31 18:00] VITALS: BP 128/82; PULSE 79; RESP 16; TEMP 36.6; O2SAT 98
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
[2022-07-31] MEDS: Divalproex Sodium ER 250 MG TAB.ER.24H PO (19:58)
[2022-07-31] MEDS: Divalproex Sodium ER 500 MG TAB.ER.24H 1500 MG PO (19:59)
[2022-07-31] MEDS: HaloperidoL 5 MG TABLET 15 MG PO (19:59)
[2022-07-31] MEDS: Melatonin 3 MG TABLET PO (20:00)
[2022-07-31] MEDS: Lithium Carbonate ER 450 MG TABLET.ER 900 MG PO (20:00)
[2022-08-01] MEDS: diazePAM 2 MG TABLET 1 MG PO (08:13)
[2022-08-01] MEDS: Benztropine Mesylate 1 MG TABLET PO (08:13)
[2022-08-01] MEDS: Cariprazine HCl 3 MG CAPSULE PO (08:13)
[2022-08-01 08:16] VITALS: BP 125/83; PULSE 78; RESP 18; TEMP 37; O2SAT 97
--- NOTE | 2022-08-03 15:47 | P.DS_ITS ---
DS: Providers Provider Date of Service: 08/01/22 Date of admission: 07/15/22 14:29 Date of discharge: 08/01/22 Primary care physician: Unknown Physician Admitting clinician: Teha Ceja Attending physician on admission: Villa Arce Attending physician on discharge: Villa Arce Discharging clinician: Thea Ceja DS: Diagnosis Discharge Diagnosis (1) Bipolar disorder with psychotic features: Status: Acute (2) Cannabis use disorder, moderate, dependence: Status: Acute DS: Medications Discharge Medications Home Medications: Previous Rx's Medication Instructions Recorded benztropine 1 mg tablet 1 mg PO BID #60 tabs 07/31/22 cariprazine 3 mg capsule (Vraylar) 3 mg PO DAILY #30 caps 07/31/22 diazepam 2 mg tablet 1 mg PO TID PRN anxiety, 07/31/22 agitation, mood dyscontrol #90 tabs divalproex 250 mg tablet,extended 250 mg PO BEDTIME #30 tabs 07/31/22 release 24 hr divalproex 500 mg tablet,extended 1,500 mg PO BEDTIME #90 tabs 07/31/22 release 24 hr haloperidol 5 mg tablet 5 mg PO Q4H PRN agitation #60 tabs 07/31/22 haloperidol 5 mg tablet 15 mg PO BEDTIME #90 tabs 07/31/22 hydrocortisone 1 % topical cream 1 appl topical BID PRN eczema #1 07/31/22 units lithium carbonate 450 mg 900 mg PO BEDTIME #60 tabs 07/31/22 tablet,extended release melatonin 3 mg tablet 3 mg PO BEDTIME #30 tabs 07/31/22 nicotine (polacrilex) 2 mg gum 4 mg buccal Q2H PRN Nicotine 07/31/22 Cravings #60 ea Mental Status Exam Mental Status Exam Patient Appearance: Appropriate Patient Orientation: Person, Place, Time and Situation Level of Consciousness: Alert Patient Behavior: Appropriate, Talkative, Cooperative and Good Eye Contact Mood Description: Calm and Appropriate Affect Description: Appropriate Patient Cognition Impaired: No Ability to Follow Directions: Good Speech Pattern: Spontaneous Speech Memory Description: Intact Hallucinations: None Delusions: Not Present Thought Process: Intact and Goal Oriented Thought Content: positive for Intact and positive for Goal Oriented Depressive Symptoms: Thoughts of /Suicide (denies) Judgement: Good Data Data Completed and Pending Completed studies during hospitalization [Text1]: 07/28/22 07/28/22 07/28/22 07:08 07:08 07:08 WBC 5.5 RBC 4.61 Hgb 14.8 Hct 42.0 MCV 91.1 MCH 32.1 MCHC 35.2 RDW 11.9 Plt Count 181 MPV 10.3 Immature Gran % (Auto) 0.2 Neut % (Auto) 46.3 Lymph % (Auto) 39.2 [place] % (Auto) 11.6 H Eos % (Auto) 2.2 Baso % (Auto) 0.5 Lymph # (Auto) 2.2 [place] # (Auto) 0.6 Eos # (Auto) 0.1 Baso # (Auto) 0.0 Abs Immat Gran (auto) 0.01 Absolute Neuts (auto) 2.6 Absolute Nucleated RBC 0.000 Nucleated RBC % (auto) 0.0 Sodium 139 Potassium 4.5 Chloride 104 Carbon Dioxide 23 Anion Gap 17 BUN 14 Creatinine 0.80 Estim Creat Clear Calc 171.4 Estimated GFR > 60 Random Glucose 85 D Calcium 9.1 Total Bilirubin 0.7 AST 22 ALT 47 H Alkaline Phosphatase 50 Total Protein 7.2 Albumin 4.2 Valproic Acid 60.3 [place] 0.73 DS: Summary Hospital Course Hospital Course: Admission to adult psychiatry for exacerbation of bipolar disorder, deja, possibly induced by cannabis use. Pt required chemical restraints after being reported missing from his home for approximately 10 hours, telling family and pr oviders he was walking in the [place]. He required restraints on the unit. Geodon was discontinued. Haldol, Benztropine, Diazepam were initiated. Depakote and [place] were continued. Vraylar was added closer to discharge in consultation with out patient team to prepare for gradual dosage reductions with ongoing stability. Pt accepted [facility] application for services by the team. Time spent discussing smoking cessation with patient: 3 to 10 minutes Status at Discharge Functional status at discharge: independent ambulation Overall status at discharge: patient is back to baseline Time Spent with Patient Time attestation: Total time spent providing and/or coordinating discharge services: 45 Time spent: Greater than 30 minutes Discharge Plan Discharge Patient Disposition: Home, Self-Care Discharge Diagnosis: Bipolar Disorder Cannabis Use Disorder Referrals: Department of Mental Health [Other] - 1 Week (Referral for department of mental health services Patient should follow-up with [facility] regarding application status after discharge form [facility].) Paula Lily [Other] - 08/02/22 1:00 pm (Follow-up appointment with outpatient psychiatric medication provider Appointment is in person at providers office ) Kinjal Crandall [facility] [Other] - Tomorrow (Follow-up appointment with outpatient therapist. Patient agreed to follow-up with outpatient provider following discharge from [facility].) Celestine Borrero, XIOMARA [Nurse Practitioner] - 08/08/22 10:00 am (IN OFFICE) Discharge Medications: New haloperidol 5 mg Tablet 15 mg PO BEDTIME Qty: 90 0RF haloperidol 5 mg Tablet 5 mg PO Q4H PRN (Reason: agitation) Qty: 60 0RF nicotine (polacrilex) 2 mg Gum 4 mg buccal Q2H PRN (Reason: Nicotine Cravings) Qty: 60 0RF diazepam 2 mg Tablet 1 mg PO TID PRN (Reason: anxiety, agitation, mood dyscontrol) Qty: 90 0RF benztropine 1 mg Tablet 1 mg PO BID Qty: 60 0RF Vraylar 3 mg Capsule 3 mg PO DAILY Qty: 30 0RF Continued lithium carbonate 450 mg Tablet Extended Release 900 mg PO BEDTIME Qty: 60 0RF hydrocortisone 1 % Cream 1 appl topical BID PRN (Reason: eczema) Qty: 1 0RF Protocol: Apply to: Apply to: affected areas divalproex 500 mg Tablet Extended Release 24 Hr 1,500 mg PO BEDTIME Qty: 90 0RF divalproex 250 mg Tablet Extended Release 24 Hr 250 mg PO BEDTIME Qty: 30 0RF Changed melatonin 3 mg tablet 3 mg PO BEDTIME Qty: 30 0RF Discontinued ziprasidone HCl 80 mg capsule 160 mg PO BEDTIME Qty: 60 0RF benztropine 1 mg tablet 1 mg PO DAILY Qty: 30 0RF hydroxyzine pamoate 25 mg capsule 1 cap PO TID PRN (Reason: Anxiety) Discharge Orders: Discharge Order (Routine); Ordered 08/01/22 Ordered By: Thea Ceja Diet: Advance to usual diet Activity on Discharge: As tolerated Stand Alone Forms: Patient Portal Discharge page, Community Support Care Plan Goals: Mood and behavioral stabilization Health Concerns: Bipolar Disorder Plan of Treatment: Follow up with PCP, psychiatric providers and out patient team We encourage you to avoid cannabis Assessment: non suicidal non psychotic euthymic, with appropriate insight and judgment family is comfortable having pt go home. Discharge Date/Time: 08/01/22 12:55
== END 2022-08-01 12:55 | disposition home or self-care (01) | DRG 885 ==
LOC: HO.ED 13:57 → HO.PM5 07-15 14:47
PROVIDERS: Emergency Medicine; Physician Assistant; Admitting Provider Psychiatry & Neurology Psychiatry; Emergency Provider Student in an Organized Health Care Education/Training Program; Visit Provider Clinical Nurse Specialist Psychiatric/Mental Health, Adult
DX: F31.2 Bipolar disorder, current episode manic severe with psychotic features (principal); F12.20 Cannabis dependence, uncomplicated; Z20.822 Contact with and (suspected) exposure to COVID-19; Z88.2 Allergy status to sulfonamides; Z79.899 Other long term (current) drug therapy
CPT/HCPCS: 36415; 80048; 80053; 80076; 80164; 80178; 80307; 82077; 83735; 85025; 87635; 99285

== ENCOUNTER 2024-05-04 12:54 | Inpatient (IN) | payer OTHER, SELFPAY ==
[2024-05-04 13:06] VITALS: BP 137/92; PULSE 83; RESP 18; TEMP 36.2; O2SAT 99; BMI 33.5
--- NOTE | 2024-05-04 13:06 | ED_ITS ---
HPI - General Adult General Chief complaint: Psychiatric Symptoms Stated complaint: Bipolar-Crisis? Time Seen by Provider: 05/04/24 14:03 Source: patient and family (father) History of Present Illness HPI narrative: 33 years old with history of bipolar disorder on valproic acid, presents to the emergency room with his dad for psych evaluation for a possible deja episode. 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 Dad reports that patient came back Saturday from his girlfriend's house any was acting weird, the girlfriend also reported the patient did not sleep at all Saturday night, when the patient came back home he started doing symbols on the floor with catch up, dad reports that over the next few days he noticed very little sleep. Patient reported he has not slept in the past 48 hours and when he woke up Saturday morning he felt very euphoric and that he feeels fine. Denies SI or HI, denies use of other illicit substances including alcohol. No chest pain, shortness of breath, no abdominal pain nausea or vomiting or headache.+ Related Data Previous Rx's ?Medication ?Instructions ?Recorded benztropine 1 mg tablet 1 mg PO BID #60 tabs 07/31/22 cariprazine 3 mg capsule (Vraylar) 3 mg PO DAILY #30 caps 07/31/22 diazepam 2 mg tablet 1 mg (1/2 x 2 mg) PO TID PRN 07/31/22 anxiety, agitation, mood dyscontrol #90 tabs divalproex 250 mg tablet,extended 250 mg PO BEDTIME #30 tabs 07/31/22 release 24 hr divalproex 500 mg tablet,extended 1,500 mg (3 x 500 mg) PO BEDTIME 07/31/22 release 24 hr #90 tabs haloperidol 5 mg tablet 5 mg PO Q4H PRN agitation #60 tabs 07/31/22 haloperidol 5 mg tablet 15 mg (3 x 5 mg) PO BEDTIME #90 07/31/22 tabs hydrocortisone 1 % topical cream 1 appl topical BID PRN eczema #1 07/31/22 units lithium carbonate 450 mg 900 mg (2 x 450 mg) PO BEDTIME #60 09/06/22 tablet,extended release tabs melatonin 3 mg tablet 3 mg PO BEDTIME #30 tabs 07/31/22 nicotine (polacrilex) 2 mg gum 4 mg buccal Q2H PRN Nicotine 07/31/22 Cravings #60 ea Allergies Allergy/AdvReac Type Severity Reaction Status Date / Time sulfamethoxazole AdvReac Intermediate Rash Verified 05/04/24 13:07 [From Bactrim] trimethoprim [From Bactrim] AdvReac Intermediate Rash Verified 05/04/24 13:07 cefaclor [From Ceclor] AdvReac Rash Verified 05/04/24 13:07 Review of Systems 2 Review of Systems: Yes all other systems are reviewed and are negative [facility] Past Medical History Medical History (Updated 05/04/24 @ 17:38 by Kane Mcconnell MD) Cannabis use disorder, moderate, dependence Bipolar disorder with psychotic features Social History Social History Household Members: Family Housing: House Do you presently have visiting nurse or other home services: No Unable to assess alcohol history related to: Refusing to respond Alcohol intake: former Patient Tobacco Use Status: Never used Tobacco Smoked in Last 30 Days: No e-Cigarette/Vaping Use: Never Used Use of substances other than those prescribed or required for medical reasons: Yes Substance Use Type: Marijuana Advance Directives: No Advance Directives Information Provided: No Do you have a plan to hurt others: No Plan service: No Sexual orientation: Straight/Heterosexual Physical Exam ED Vital Signs: Vital Signs - 24 hr 05/04/24 13:06 05/04/24 17:53 05/04/24 19:37 Temperature 97.1 F 98.2 F 97.6 F Pulse Rate 83 79 Respiratory Rate 18 18 Blood Pressure 137/92 H 158/75 H Pulse Oximetry 99 96 Oxygen Delivery Method Room Air Room Air BMI result Body Mass Index 33.5 General: Alert, Not in Distress Skin: No rash, warm HEENT: Atraumatic, No Exudate or Pharyngeal Erythema Resp: Normal Breath sounds bilaterally Cardio: Regular rate and Rhythm, Normal S1, S2 ABD: Abd soft, non tender, no guarding or rebound. Normal Bowel sounds. : No cva tenderness Neuro: Alert, oriented x4, PERRL Strenght 5/5 on all extremities Sensation is preserved in both lower and upper extremities Index to nose: normal Cranial Nerves II-XII grossly intact No dysarthria, or aphasia No neglet. Visual hernandez are normal bilaterally Psych: Cooperative, NO SI, at times has tangent speech and laugh on his own. Course Course Course Narrative: RME performed by Rekha Lobo PA-C. Patient is a 33 year old assigned male at presenting to the emergency department with a possible crisis. Patient states that he is using CBD + THC and has been feeling dysregulated. Patient's father provided additional history. Detailed physical exam and review of systems are deferred to the travel counselor [employer]. Labs ordered. Patient placed back in the waiting room pending room availability and results. Reevaluation(s) Reevaluation #1: Assessed by crisis team, patient will require inpatient admission. At this time hemodynamically stable If patient unwilling to stay we will need section 12. Time: 17:37 Reevaluation #2: Will send out to Dr. Marcano pending placement Time: 20:39 Medications Administered Discontinued Medications Generic Name Dose Route Start Last Admin Trade Name Freq PRN Reason Stop Dose Admin Benztropine Mesylate 1 mg 05/04/24 17:32 05/04/24 17:51 Benztropine Mesylate 1 Mg Tablet PO 05/04/24 17:33 1 mg BID ONE Administration Cariprazine 3 mg 05/04/24 17:32 05/04/24 17:50 Cariprazine Hcl 3 Mg Capsule PO 05/04/24 17:33 3 mg DAILY ONE Administration Divalproex Sodium 750 mg 05/04/24 17:32 05/04/24 17:50 Divalproex Sodium 250 Mg Tablet. PO 05/04/24 17:33 750 mg BEDTIME ONE Administration Lorazepam 2 mg 05/04/24 18:57 05/04/24 19:15 Lorazepam 1 Mg Tablet PO 05/04/24 18:58 2 mg ONCE ONE Administration Medical Decision Making Medical Decision Making MDM Narrative: Presented to the emergency room for possible psych evaluation for deja episode. In my opinion physical exam may be consistent with early episodes of deja. Plan CBC, BMP, use tox. Crisis eval when medically cleared Lab Data 05/04/24 15:17 05/04/24 15:17 Labs: Lab Results 05/04/24 05/04/24 05/04/24 Range/Units 15:17 16:35 18:18 WBC 5.2 (4.8-10.8) X10*3/uL RBC 4.86 (4.60-5.80) X10*6/uL Hgb 16.1 (14.0-18.0) g/dl Hct 43.2 (42.0-52.0) % MCV 88.9 (80.0-98.0) fL MCH 33.1 H (27.0-33.0) pg MCHC 37.3 H (31.0-36.0) g/dl RDW 11.9 (11.0-16.0) % Plt Count 170 (160-400) X10*3/uL MPV 10.2 (9.4-12.4) fL Immature Gran % (Auto) 0.4 (0.0-0.4) % Neut % (Auto) 41.8 L (45-73) % Lymph % (Auto) 41.1 H (20-40) % [place] % (Auto) 14.9 H (2-11) % Eos % (Auto) 1.0 (0-4) % Baso % (Auto) 0.8 (0-2) % Lymph # (Auto) 2.1 (1.2-4.9) X10*3/uL [place] # (Auto) 0.8 (0.1-1.2) X10*3/uL Eos # (Auto) 0.1 (0.0-0.4) X10*3/uL Baso # (Auto) 0.0 (0.0-0.2) X10*3/uL Abs Immat Gran (auto) 0.02 (0.00-0.03) X10*3/uL Absolute Neuts (auto) 2.2 (2.0-8.3) x10*3/uL Absolute Nucleated RBC 0.000 (0.0-0.012) X10*3/uL Nucleated RBC % (auto) 0.0 (0.0-0.2) /100WBC Sodium 142 (135-145) mmol/L Potassium 3.8 (3.3-5.1) mmol/L Chloride 107 (96-108) mmol/L Carbon Dioxide 28 (22-29) mmol/L Anion Gap 11 L (12-20) BUN 7 L (9-16) mg/dL Creatinine 0.84 (0.5-1.4) mg/dL Estim Creat Clear Calc 164.7 Estimated GFR > 60 Random Glucose 94 (60-115) mg/dL Calcium 9.6 (8.4-10.2) mg/dL Total Bilirubin 1.0 (0.0-1.0) mg/dL AST 22 (5-37) U/L ALT 38 (0-40) U/L Alkaline Phosphatase 61 (39-117) U/L Total Protein 7.4 (6.5-8.0) g/dL Albumin 4.6 (3.5-5.0) g/dL Urine Color Yellow Urine Appearance Clear Urine pH 7.0 (5.0-9.0) Ur Specific [place] <= 1.005 (1.005-1.025) Urine Protein Negative (Neg-Trace) mg/dL Urine Glucose (UA) Negative (Negative) mg/dL Urine Ketones Negative (Negative) mg/dL Urine Blood Negative (Negative) Urine Nitrite Negative (Negative) Ur Leukocyte Esterase Negative (Negative) Salicylates < 5.0 L (15-30) mg/dL Urine Opiates Screen Not Detected (Not Detect) Ur Buprenorphine Scrn Not Detected (Not Detect) ng/mL Ur Oxycodone Screen Not Detected (Not Detect) ng/mL Urine Methadone Screen Not Detected (Not Detect) ng/mL Urine Fentanyl Screen Not Detected (Not Detect) Acetaminophen < 3 (<30) mcg/mL Ur Barbiturates Screen Not Detected (Not Detect) Valproic Acid 77.6 (50.0-100.0) mcg/mL Ur Phencyclidine Scrn Not Detected (Not Detect) Ur Amphetamines Screen Not Detected (Not Detect) U Benzodiazepines Scrn Not Detected (Not Detect) [place] < 0.10 L (0.60-1.20) mmol/L Urine Cocaine Screen Not Detected (Not Detect) U Marijuana (THC) Screen POSITIVE H (Not Detect) Ethyl Alcohol < 10 mg/dL Discharge Plan Discharge Clinical Impression: Bipolar disorder, Bipolar I disorder with deja Patient Disposition: Still a Patient Prescriptions: No Action haloperidol 5 mg Tablet 15 mg PO BEDTIME Qty: 90 0RF haloperidol 5 mg Tablet 5 mg PO Q4H PRN (Reason: agitation) Qty: 60 0RF nicotine (polacrilex) 2 mg Gum 4 mg buccal Q2H PRN (Reason: Nicotine Cravings) Qty: 60 0RF diazepam 2 mg Tablet 1 mg PO TID PRN (Reason: anxiety, agitation, mood dyscontrol) Qty: 90 0RF benztropine 1 mg Tablet 1 mg PO BID Qty: 60 0RF Vraylar 3 mg Capsule 3 mg PO DAILY Qty: 30 0RF melatonin 3 mg tablet 3 mg PO BEDTIME Qty: 30 0RF lithium carbonate 450 mg Tablet Extended Release 900 mg PO BEDTIME Qty: 60 0RF hydrocortisone 1 % Cream 1 appl topical BID PRN (Reason: eczema) Qty: 1 0RF Protocol: Apply to: Apply to: affected areas divalproex 500 mg Tablet Extended Release 24 Hr 1,500 mg PO BEDTIME Qty: 90 0RF divalproex 250 mg Tablet Extended Release 24 Hr 250 mg PO BEDTIME Qty: 30 0RF Interventions: [place]-Suicide Risk Severity Scale Last Done: 05/04/24 13:25 Print Language: [place]
--- NOTE | 2024-05-04 13:27 | PC.NURSE ---
Patient in 17h accompanied by his father. changed into hospital attire and belongings locked in POD. Per father patient recently bought THC/CBD online and it was delivered on April 20. Father reports that about 90tabs are missing. Patient himself states he is fine and doesn't know why he is here. Reports 09/03 that started when I asked him questions, states feels like his face is melting off. Denies SI/Hi but states he wants to hurt the beats in his head. States the beats are always playing in his head to the music. States has been taking liquid and pill for of CBD/THC with a range of 5-40mg a day. States that he also wants to trial experimenting with etoh. Denies current etoh use but states that he drinks no alcholic beers right now. Last THC use was 8 hours ago. Patient difficult to re direct. Asking do you have an only fans?, are you going to ask me my body count . Patient reports has been taking meds ordered by PCP.
[2024-05-04 15:22] LABS: MANUAL DIFF FLAG NO
[2024-05-04 15:24] LABS: Basophils Percent Auto 0.8 % (0-2); Eosinophils Absolute Auto 0.1 X10*3/uL (0.0-0.4); Hematocrit 43.2 % (42.0-52.0); Hemoglobin 16.1 g/dl (14.0-18.0); Imm Gran Abs Auto 0.02 X10*3/uL (0.00-0.03); Imm Gran Pct Auto 0.4 % (0.0-0.4); Lymphocytes Absolute Auto 2.1 X10*3/uL (1.2-4.9); Lymphocytes Percent Auto 41.1 % (20-40); Mean Corpuscular HGB Conc 37.3 g/dl (31.0-36.0); Mean Corpuscular Hemoglobin 33.1 pg (27.0-33.0); Mean Corpuscular Volume 88.9 fL (80.0-98.0); Mean Platelet Volume 10.2 fL (9.4-12.4); Monocytes Absolute Auto 0.8 X10*3/uL (0.1-1.2); Monocytes Percent Auto 14.9 % (2-11); Neutrophils Absolute Auto 2.2 x10*3/uL (2.0-8.3); Neutrophils Percent Auto 41.8 % (45-73); Platelet Count 170 X10*3/uL (160-400); Red Blood Count 4.86 X10*6/uL (4.60-5.80); Red Cell Distribution Width 11.9 % (11.0-16.0); White Blood Count 5.2 X10*3/uL (4.8-10.8)
[2024-05-04 15:42] LABS: Alanine Aminotransferase 38 U/L (0-40); Albumin Level 4.6 g/dL (3.5-5.0); Alkaline Phosphatase 61 U/L (39-117); Anion Gap 11 (12-20); Aspartate Amino Transferase 22 U/L (5-37); Blood Urea Nitrogen 7 mg/dL (9-16); Calcium 9.6 mg/dL (8.4-10.2); Carbon Dioxide 28 mmol/L (22-29); Chloride 107 mmol/L (96-108); Creatinine Clr Calc Pharmacy 164.7; Estimated Glomerular Filt Rate > 60; Ethanol < 10 mg/dL; Glucose Random 94 mg/dL (60-115); Potassium 3.8 mmol/L (3.3-5.1); Sodium 142 mmol/L (135-145); Total Protein 7.4 g/dL (6.5-8.0)
[2024-05-04 15:52] LABS: Lithium < 0.10 mmol/L (0.60-1.20)
[2024-05-04 16:00] LABS: Acetaminophen LAB < 3 mcg/mL (<30); Salicylate < 5.0 mg/dL (15-30)
[2024-05-04 16:45] LABS: Appearance Urine Clear; Color Urine Yellow; Glucose Urine UA Negative (Negative); Leukocyte Esterase Urine Negative (Negative); Nitrite Urine Negative (Negative); Specific Gravity - Urine <= 1.005 (1.005-1.025); Urine Blood Negative (Negative); Urine Ketones Negative (Negative); Urine Protein Negative (Neg-Trace)
[2024-05-04 16:59] LABS: Amphetamine Screen Urine Not Detected (Not Detect); Barbiturates, Urine Not Detected (Not Detect); Benzodiazepines Screen Urine Not Detected (Not Detect); Buprenorphine Scr Not Detected (Not Detect); Cannabinoid Screen Urine POSITIVE (Not Detect); Cocaine Screen Urine Not Detected (Not Detect); Fentanyl, urine Not Detected (Not Detect); Methadone Screen, Urine Not Detected (Not Detect); Opiate Screen Urine Not Detected (Not Detect); Oxycodone Screen Urine Not Detected (Not Detect); Phencyclidine Screen Urine Not Detected (Not Detect)
[2024-05-04] MEDS: Cariprazine HCl 3 MG CAPSULE PO (17:50)
[2024-05-04] MEDS: Divalproex Sodium 250 MG TABLET.DR 750 MG PO (17:50)
[2024-05-04] MEDS: Benztropine Mesylate 1 MG TABLET PO (17:51)
[2024-05-04 17:53] VITALS: TEMP 36.8
--- NOTE | 2024-05-04 18:02 | PC.NURSE ---
Po meds as ordered, calm and cooperative, 1:1 at bedside. Father spoke with care team to discuss families concerns
[2024-05-04 18:40] LABS: Valproate 77.6 mcg/mL (50.0-100.0)
[2024-05-04] MEDS: LORazepam 1 MG TABLET 2 MG PO (19:15)
[2024-05-04 19:37] VITALS: BP 158/75; PULSE 79; RESP 18; TEMP 36.4; O2SAT 96
--- NOTE | 2024-05-04 22:58 | PC.NURSE ---
Attempted to complete med rec, pt unsure of meds and dosage. States my memory is not the best right now
--- NOTE | 2024-05-05 | ECG_ITS ---
Test Reason : RULE OUT PROLONGED QT Blood Pressure : / mmHG Vent. Rate : 057 BPM Atrial Rate : 057 BPM P-R Int : 156 ms QRS Dur : 122 ms QT Int : 390 ms P-R-T Axes : 017 028 -02 degrees QTc Int : 379 ms Sinus bradycardia RSR' or QR pattern in V1 suggests right ventricular conduction delay Borderline ECG When compared with ECG of 15-MAY-2022 13:23, No significant changes seen Referred By: Master Rocha Electronically Signed By:BRADLY RODRIGUEZ
[2024-05-05] MEDS: Nicotine 21 MG PATCH.TD24 TRANSDERMA (06:26)
--- NOTE | 2024-05-05 07:18 | PC.NURSE ---
Addendum entered by Soniya Jacome 05/05/24 07:38: Correction: patient is an inpatient bedsearch today Original Note: Assumed care of patient at 0645, patient ambulating around BH pod this am, offering no complaints to this RN. Patient appears to be in no apparent distress this am. Patient is pending CARE eval this am
[2024-05-05] MEDS: Cariprazine HCl 3 MG CAPSULE PO (08:01)
[2024-05-05] MEDS: Benztropine Mesylate 1 MG TABLET PO ×2 (08:02→20:22)
[2024-05-05 08:26] VITALS: BP 126/81; PULSE 80; RESP 16; TEMP 36.6; O2SAT 98
[2024-05-05] MEDS: LORazepam 1 MG TABLET 2 MG PO (08:32)
--- NOTE | 2024-05-05 09:46 | MHC.CARE ---
CARE Team received return call from Pts outpatient providers office. Pts will be made aware he is boarding in the ED as an [facility] bedsearch.
[2024-05-05 14:47] VITALS: BP 138/74; PULSE 78; RESP 16; TEMP 36.6; O2SAT 99
--- NOTE | 2024-05-05 15:21 | P.HPPS_ITS ---
HPI Date of Service: 05/05/24 Chief Complaint: SI Sources of Information: patient interviewed, chart reviewed and crisis/core team assessment reviewed HPI Subjective Notes: Hodge Warning and Conditional Voluntary Narrative: Patient is a 33 year old male with hx of Bipolar d/o and cannabis use d/o who self presented to [facility] at the request of his family secondary to exhibiting signs of increased deja. Per crisis report, presented to ER with his father for psychiatric evaluation for a possible deja episode. Pt's father reported, pt has been sleeping very little since Saturday. 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 Pt reported over the past week he started using CBD and THC products. Pt's girlfriend reported, pt did not sleep Saturday night. Pt reported he has not slept in the past 48 hours and when he woke up Saturday morning he felt euphoric. He denied SI/HI/VH/AH. Valproic acid level 77.6 on 05/04/2024 During admission assessment, alert, oriented, calm, and cooperative. Pt reports feeling fine today; pt stated, I came here because my mom was screaming at me to come to the hospital and said I wasn't acting like myself. I was relaxing in bed, listening to music. They said I wasn't sleeping, but I definitely slept the past two days. They don't get to choose when I go to bed . Pt reports he has been taking edible gummies with THC and CBD in them . Pt stated, I don't know if the edibles are affecting my sleep or what. 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 Pt denies any other substance use. Pt reports he has been medication compliant. He denies SI/HI/VH/AH. Past Psychiatric History: IP: [facility] 2021, 2014, 2007 [facility] [place] Outpatient prescriber: Aida Kaufman does not have outpatient therapist. Medical Evaluation Reviewed: Yes [facility] Medical History (Updated 05/04/24 @ 17:38 by Kane Mcconnell MD) Cannabis use disorder, moderate, dependence Bipolar disorder with psychotic features Social History: Lives with parents. One sister, History of dyslexia and learning disability in school Substance History: Pt reports taking edibles. denies any other substance use. Trauma History: Lost friend to suicide when he was a senior in high school Diagnostics Vital Signs (24Hr): Vital Signs - 24 hr 05/04/24 17:53 05/04/24 19:37 05/05/24 08:26 Temperature 98.2 F 97.6 F 97.8 F Pulse Rate 79 80 Respiratory Rate 18 16 Blood Pressure 158/75 H 126/81 Pulse Oximetry 96 98 Oxygen Delivery Method Room Air Room Air 05/05/24 14:47 Temperature 97.8 F Pulse Rate 78 Respiratory Rate 16 Blood Pressure 138/74 Pulse Oximetry 99 Oxygen Delivery Method Room Air BMI result Body Mass Index 33.5 Labs 05/04/24 15:17 05/04/24 15:17 Labs: Laboratory Results - last 48 hr 05/04/24 05/04/24 05/04/24 15:17 16:35 18:18 WBC 5.2 RBC 4.86 Hgb 16.1 Hct 43.2 MCV 88.9 MCH 33.1 H MCHC 37.3 H RDW 11.9 Plt Count 170 MPV 10.2 Immature Gran % (Auto) 0.4 Neut % (Auto) 41.8 L Lymph % (Auto) 41.1 H [place] % (Auto) 14.9 H Eos % (Auto) 1.0 Baso % (Auto) 0.8 Lymph # (Auto) 2.1 [place] # (Auto) 0.8 Eos # (Auto) 0.1 Baso # (Auto) 0.0 Abs Immat Gran (auto) 0.02 Absolute Neuts (auto) 2.2 Absolute Nucleated RBC 0.000 Nucleated RBC % (auto) 0.0 Sodium 142 Potassium 3.8 Chloride 107 Carbon Dioxide 28 Anion Gap 11 L BUN 7 L Creatinine 0.84 Estim Creat Clear Calc 164.7 Estimated GFR > 60 Random Glucose 94 Calcium 9.6 Total Bilirubin 1.0 AST 22 ALT 38 Alkaline Phosphatase 61 Total Protein 7.4 Albumin 4.6 Urine Color Yellow Urine Appearance Clear Urine pH 7.0 Ur Specific [place] <= 1.005 Urine Protein Negative Urine Glucose (UA) Negative Urine Ketones Negative Urine Blood Negative Urine Nitrite Negative Ur Leukocyte Esterase Negative Salicylates < 5.0 L Urine Opiates Screen Not Detected Ur Buprenorphine Scrn Not Detected Ur Oxycodone Screen Not Detected Urine Methadone Screen Not Detected Urine Fentanyl Screen Not Detected Acetaminophen < 3 Ur Barbiturates Screen Not Detected Valproic Acid 77.6 Ur Phencyclidine Scrn Not Detected Ur Amphetamines Screen Not Detected U Benzodiazepines Scrn Not Detected [place] < 0.10 L Urine Cocaine Screen Not Detected U Marijuana (THC) Screen POSITIVE H Ethyl Alcohol < 10 Meds/Allergies Meds Home Medications ?Medication ?Instructions ?Recorded ?Confirmed ?Type haloperidol 0.5 mg tablet 0.5 mg PO BEDTIME 05/05/24 05/05/24 History Allergies Allergies Allergy/AdvReac Type Severity Reaction Status Date / Time sulfamethoxazole AdvReac Intermediate Rash Verified 05/04/24 13:07 [From Bactrim] trimethoprim [From Bactrim] AdvReac Intermediate Rash Verified 05/04/24 13:07 cefaclor [From Ceclor] AdvReac Rash Verified 05/04/24 13:07 Mental Status Exam Mental Status Exam Narrative: Pt is alert and oriented; behavior is cooperative, friendly and calm; dressed in casual attire; mood is described as good ; eye contact appropriate; Speech is normal rate, volume and not pressured; thought process is organized and goal directed; Thought content is on tx; otherwise pertinent to relevant topics and without any delusional content, paranoid ideations or grandiosity; denies SI/HI/VH/AH. Assessment & Plan Assessment & Plan (1) Bipolar disorder: Status: Acute Code(s): F31.9 - Bipolar disorder, unspecified (2) Cannabis use disorder, moderate, dependence: Status: Acute Code(s): F12.20 - Cannabis dependence, uncomplicated Plan Patient is a 33 year old male with hx of Bipolar d/o and cannabis use d/o who self presented to [facility] at the request of his family secondary to exhibiting signs of increased deja. Plan: CV 15 minute safety checks continue home medications obtain collateral encourage groups referral to outpatient therapist discharge planning Patient educated on: diagnosis, medication risk/benefits, substance abuse and therapeutic strategies Informed Consent: understands Reason for continued inpatient stay Substantial Risk for: med/psych decompensation Statement Statement: I have reviewed the history and physical and performed a pertinent examination on my patient. No changes have occurred unless specified. If the History and Physical was not performed prior to admission, the Hospitalist's service will be consulted for completing the admission physical. Time Spent With Patient Time: Total time managing care of this patient today _60___ minutes.
--- NOTE | 2024-05-05 16:53 | PC.ADMIT ---
Nursing admission note: 33 year old male DX: BiPolar disorder, current episode manic, Cannabis abuse, uncomplicated. Referred for treatment by CARE team. Admitted on section 12a, signed conditional voluntary followed by 3 day notice. Patient presented to [facility] at request of his family and girlfriend secondary to exhibiting signs of increased deja and not appearing to be at his baseline. Patient engaged easily, A+O x3, calm and cooperative with admission process. Good attn to ADL, good eye contact. Full range of affect. Patient is expansive. Speech is rapid but not pressured. No reported mood disturbance. Denies SI/HI at this time. Denies A/V hallucinations, no overt psychosis or expressed delusions. Thoughts are linear and organized. Patient reports sleep has been varied, stating his sleep times are off however feels he has been getting enough sleep. No reported appetite weight loss. 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 No acute medical problems. Allergy to Sulfamethoxazole, Trimethroprim, and Cefaclor. Patient oriented to unit, placed on unit safety checks. See nursing note/crisis evaluation for further details.
[2024-05-05] MEDS: Nicotine Polacrilex 2 MG GUM BUCCAL ×2 (18:40→20:42)
[2024-05-05 20:00] VITALS: BP 131/78; PULSE 72; RESP 16; TEMP 36.9; O2SAT 97
[2024-05-05] MEDS: Divalproex Sodium ER 500 MG TAB.ER.24H 1500 MG PO (20:21)
[2024-05-05] MEDS: Divalproex Sodium ER 250 MG TAB.ER.24H PO (20:21)
[2024-05-05] MEDS: hydrOXYzine HCL 25 MG TABLET PO (20:21)
[2024-05-05] MEDS: traZODone HCL 50 MG TABLET PO (22:02)
[2024-05-06] MEDS: traZODone HCL 50 MG TABLET PO ×2 (00:39→23:11)
[2024-05-06] MEDS: Nicotine Polacrilex 2 MG GUM BUCCAL ×8 (00:39→22:38)
[2024-05-06] MEDS: hydrOXYzine HCL 25 MG TABLET PO ×3 (01:30→21:20)
[2024-05-06 07:49] VITALS: BP 139/91; PULSE 75; RESP 18; TEMP 36.4; O2SAT 98
[2024-05-06] MEDS: Benztropine Mesylate 1 MG TABLET PO ×2 (08:32→20:07)
[2024-05-06] MEDS: Cariprazine HCl 3 MG CAPSULE PO (08:33)
--- NOTE | 2024-05-06 08:58 | HO.PSYCHPN ---
Subjective Subjective Date of Service: 05/06/24 Reason For Visit: SI Subjective Notes: 3 Day Interim History: Reviewed with Dr. Arce. Social with peers, attending groups. Pt reports feeling good today; pt stated, I'm just worried about my job. My sleep cycle has been weird but I slept at 10pm, woke up at 2am, took a shower then went back to sleep . Pt reports he signed 3 day notice; 3 day is up on 05/08/24. Pt stated he is going to try to quit the THC even though I hate that idea . Pt denies SI/HI/VH/AH. Medication Compliance: Yes Side effects from medications: No Attending Groups: Yes Review of Systems Constitutional: Reports as per HPI Eyes: Reports as per HPI Reports as per HPI Cardiovascular: Reports as per HPI Respiratory: Reports as per HPI Gastrointestinal: Reports as per HPI Genitourinary: Reports as per HPI Musculoskeletal: Reports as per HPI Skin/Breast: Reports as per HPI Reports as per HPI Psychiatric: Reports as per HPI Endocrine: Reports as per HPI Hematologic/Lymphatic: Reports as per HPI Allergic/Immunologic: Reports as per HPI Mental Status Exam Mental Status Exam Narrative: Pt is alert and oriented; behavior is cooperative, friendly and calm; dressed in casual attire; mood is described as good ; eye contact appropriate; Speech is normal rate, volume and not pressured; thought process is organized and goal directed; Thought content is on tx; otherwise pertinent to relevant topics and without any delusional content, paranoid ideations or grandiosity; denies SI/HI/VH/AH. Diagnostics Vital Signs (24Hr): Vital Signs - 24 hr 05/05/24 14:47 05/05/24 20:00 05/06/24 07:49 Temperature 97.8 F 98.5 F 97.6 F Pulse Rate 78 72 75 Respiratory Rate 16 16 18 Blood Pressure 138/74 131/78 139/91 H Pulse Oximetry 99 97 98 Oxygen Delivery Method Room Air Room Air Room Air BMI result Body Mass Index 33.5 Labs 05/04/24 15:17 05/04/24 15:17 Labs: Laboratory Results - last 48 hr 05/04/24 05/04/24 05/04/24 15:17 16:35 18:18 WBC 5.2 RBC 4.86 Hgb 16.1 Hct 43.2 MCV 88.9 MCH 33.1 H MCHC 37.3 H RDW 11.9 Plt Count 170 MPV 10.2 Immature Gran % (Auto) 0.4 Neut % (Auto) 41.8 L Lymph % (Auto) 41.1 H [place] % (Auto) 14.9 H Eos % (Auto) 1.0 Baso % (Auto) 0.8 Lymph # (Auto) 2.1 [place] # (Auto) 0.8 Eos # (Auto) 0.1 Baso # (Auto) 0.0 Abs Immat Gran (auto) 0.02 Absolute Neuts (auto) 2.2 Absolute Nucleated RBC 0.000 Nucleated RBC % (auto) 0.0 Sodium 142 Potassium 3.8 Chloride 107 Carbon Dioxide 28 Anion Gap 11 L BUN 7 L Creatinine 0.84 Estim Creat Clear Calc 164.7 Estimated GFR > 60 Random Glucose 94 Calcium 9.6 Total Bilirubin 1.0 AST 22 ALT 38 Alkaline Phosphatase 61 Total Protein 7.4 Albumin 4.6 Urine Color Yellow Urine Appearance Clear Urine pH 7.0 Ur Specific [place] <= 1.005 Urine Protein Negative Urine Glucose (UA) Negative Urine Ketones Negative Urine Blood Negative Urine Nitrite Negative Ur Leukocyte Esterase Negative Salicylates < 5.0 L Urine Opiates Screen Not Detected Ur Buprenorphine Scrn Not Detected Ur Oxycodone Screen Not Detected Urine Methadone Screen Not Detected Urine Fentanyl Screen Not Detected Acetaminophen < 3 Ur Barbiturates Screen Not Detected Valproic Acid 77.6 Ur Phencyclidine Scrn Not Detected Ur Amphetamines Screen Not Detected U Benzodiazepines Scrn Not Detected [place] < 0.10 L Urine Cocaine Screen Not Detected U Marijuana (THC) Screen POSITIVE H Ethyl Alcohol < 10 Medications Medications Current Medications Acetaminophen (Acetaminophen 325 Mg Tablet) 650 mg PO Q6H PRN PRN Reason: Headache/Pain Mild Scale (1-3) Al Hydroxide/Mg Hydroxide (Magnesium Hydrox/Alum Hydrox 30 Ml Oral.Susp) 30 ml PO Q6H PRN PRN Reason: Heartburn/Nausea Benztropine Mesylate (Benztropine Mesylate 1 Mg Tablet) 1 mg PO BID [facility] Last Admin: 05/06/24 08:32 Dose: 1 mg Cariprazine (Cariprazine Hcl 3 Mg Capsule) 3 mg PO DAILY [facility] Last Admin: 05/06/24 08:33 Dose: 3 mg Divalproex Sodium (Divalproex Sodium Er 250 Mg Tab.Er.24h) 250 mg PO BEDTIME [facility] Last Admin: 05/05/24 20:21 Dose: 250 mg Divalproex Sodium (Divalproex Sodium Er 500 Mg Tab.Er.24h) 1,500 mg PO BEDTIME [facility] Last Admin: 05/05/24 20:21 Dose: 1,500 mg Hydroxyzine HCl (Hydroxyzine Hcl 25 Mg Tablet) 25 mg PO Q6H PRN PRN Reason: Anxiety Last Admin: 05/06/24 01:30 Dose: 25 mg Magnesium Hydroxide (Milk Of Magnesia 30 Ml Oral.Susp) 30 ml PO DAILY PRN PRN Reason: Constipation Nicotine Polacrilex (Nicotine Polacrilex 2 Mg Gum) 2 mg BUCCAL Q2H PRN PRN Reason: Nicotine Cravings Last Admin: 05/06/24 05:48 Dose: 2 mg Trazodone HCl (Trazodone Hcl 50 Mg Tablet) 50 mg PO BEDTIME MRX1 PRN PRN Reason: Insomnia Last Admin: 05/06/24 00:39 Dose: 50 mg Allergies Allergies Allergy/AdvReac Type Severity Reaction Status Date / Time sulfamethoxazole AdvReac Intermediate Rash Verified 05/04/24 13:07 [From Bactrim] trimethoprim [From Bactrim] AdvReac Intermediate Rash Verified 05/04/24 13:07 cefaclor [From Ceclor] AdvReac Rash Verified 05/04/24 13:07 Assessment & Plan Assessment & Plan (1) Bipolar disorder: Status: Acute Code(s): F31.9 - Bipolar disorder, unspecified (2) Cannabis use disorder, moderate, dependence: Status: Acute Code(s): F12.20 - Cannabis dependence, uncomplicated Plan Patient is a 33 year old male with hx of Bipolar d/o and cannabis use d/o who self presented [place] [facility] at the request of his family secondary to exhibiting signs of increased deja. Plan: CV 15 minute safety checks continue home medications obtain collateral encourage groups referral to outpatient therapist discharge planning 05/06: Social with peers, attending groups. Pt reports feeling good today; pt stated, I'm just worried about my job. My sleep cycle has been weird but I slept at 10pm, woke up at 2am, took a shower then went back to sleep . Pt reports he signed 3 day notice; 3 day is up on 05/08/24. Pt stated he is going to try to quit the THC even though I hate that idea . Pt denies SI/HI/VH/AH. Start: Melatonin 6mg PO bedtime Patient educated on: diagnosis, medication risk/benefits, substance abuse and therapeutic strategies Informed Consent: understands Reason for continued inpatient stay Substantial Risk for: med/psych decompensation Time Spent With Patient Time: Total time managing care of this patient today _20___ minutes.
[2024-05-06] MEDS: Nicotine 21 MG PATCH.TD24 TRANSDERMA (10:24)
[2024-05-06 19:59] VITALS: BP 148/84; PULSE 96; RESP 18; TEMP 36.4; O2SAT 100
[2024-05-06] MEDS: Divalproex Sodium ER 500 MG TAB.ER.24H 1500 MG PO (20:07)
[2024-05-06] MEDS: Divalproex Sodium ER 250 MG TAB.ER.24H PO (20:07)
[2024-05-07] MEDS: Nicotine Polacrilex 2 MG GUM BUCCAL ×7 (00:34→20:23)
[2024-05-07] MEDS: traZODone HCL 50 MG TABLET PO (03:00)
[2024-05-07 07:00] VITALS: BMI 32.9
[2024-05-07 07:34] VITALS: BP 139/69; PULSE 87; RESP 16; TEMP 37.1; O2SAT 97
[2024-05-07] MEDS: Cariprazine HCl 3 MG CAPSULE PO (08:14)
[2024-05-07] MEDS: Benztropine Mesylate 1 MG TABLET PO ×2 (08:14→20:31)
[2024-05-07] MEDS: Nicotine 21 MG PATCH.TD24 TRANSDERMA (08:15)
[2024-05-07] MEDS: hydrOXYzine HCL 25 MG TABLET PO ×2 (09:58→19:30)
--- NOTE | 2024-05-07 10:18 | HO.PSYCHPN ---
Subjective Subjective Date of Service: 05/07/24 Reason For Visit: SI Subjective Notes: Conditional Voluntary Interim History: Reviewed with Dr. Arce. Social with peers, attending groups. Retracted 3 day notice. Pt reports feeling great today; pt stated, I know I didn't sleep at all last night but I think it was because I was pumped during the [employer] game. Then the other patient was screaming for so long and I got interested in what the staff were going to do so it got me riled up . Pt observed taking a nap this afternoon. Discussed restarting Haldol with pt; pt agreed. Pt denies SI/HI/VH/AH. Spoke with pt's outpatient provider; Aida Kaufman; discussed current tx plan. Ms. aKufman is in agreement of pt restarting Haldol. Start: Haldol 5mg PO bedtime Medication Compliance: Yes Side effects from medications: No Attending Groups: Yes Review of Systems Constitutional: Reports as per HPI Eyes: Reports as per HPI Reports as per HPI Cardiovascular: Reports as per HPI Respiratory: Reports as per HPI Gastrointestinal: Reports as per HPI Genitourinary: Reports as per HPI Musculoskeletal: Reports as per HPI Skin/Breast: Reports as per HPI Reports as per HPI Psychiatric: Reports as per HPI Endocrine: Reports as per HPI Hematologic/Lymphatic: Reports as per HPI Allergic/Immunologic: Reports as per HPI Mental Status Exam Mental Status Exam Narrative: Pt is alert and oriented; behavior is cooperative, friendly and calm; dressed in casual attire; mood is described as good ; eye contact appropriate; Speech is normal rate, volume and not pressured; thought process is organized and goal directed; Thought content is on tx; otherwise pertinent to relevant topics and without any delusional content, paranoid ideations or grandiosity; denies SI/HI/VH/AH. Diagnostics Vital Signs (24Hr): Vital Signs - 24 hr 05/06/24 19:59 05/07/24 07:34 Temperature 97.6 F 98.7 F Pulse Rate 96 87 Respiratory Rate 18 16 Blood Pressure 148/84 H 139/69 Pulse Oximetry 100 97 Oxygen Delivery Method Room Air Room Air BMI result Body Mass Index 32.9 Labs 05/04/24 15:17 05/04/24 15:17 Medications Medications Current Medications Acetaminophen (Acetaminophen 325 Mg Tablet) 650 mg PO Q6H PRN PRN Reason: Headache/Pain Mild Scale (1-3) Al Hydroxide/Mg Hydroxide (Magnesium Hydrox/Alum Hydrox 30 Ml Oral.Susp) 30 ml PO Q6H PRN PRN Reason: Heartburn/Nausea Benztropine Mesylate (Benztropine Mesylate 1 Mg Tablet) 1 mg PO BID [facility] Last Admin: 05/07/24 08:14 Dose: 1 mg Cariprazine (Cariprazine Hcl 3 Mg Capsule) 3 mg PO DAILY [facility] Last Admin: 05/07/24 08:14 Dose: 3 mg Divalproex Sodium (Divalproex Sodium Er 250 Mg Tab.Er.24h) 250 mg PO BEDTIME [facility] Last Admin: 05/06/24 20:07 Dose: 250 mg Divalproex Sodium (Divalproex Sodium Er 500 Mg Tab.Er.24h) 1,500 mg PO BEDTIME [facility] Last Admin: 05/06/24 20:07 Dose: 1,500 mg Hydroxyzine HCl (Hydroxyzine Hcl 25 Mg Tablet) 25 mg PO Q6H PRN PRN Reason: Anxiety Last Admin: 05/07/24 09:58 Dose: 25 mg Magnesium Hydroxide (Milk Of Magnesia 30 Ml Oral.Susp) 30 ml PO DAILY PRN PRN Reason: Constipation Melatonin (Melatonin 3 Mg Tablet) 6 mg PO BEDTIME [facility] Last Admin: 05/06/24 23:12 Dose: Not Given Nicotine (Nicotine 21 Mg Patch.Td24) 21 mg TRANSDERMA DAILY [facility] Last Admin: 05/07/24 08:15 Dose: 21 mg Nicotine Polacrilex (Nicotine Polacrilex 2 Mg Gum) 2 mg BUCCAL Q2H PRN PRN Reason: Nicotine Cravings Last Admin: 05/07/24 06:50 Dose: 2 mg Trazodone HCl (Trazodone Hcl 50 Mg Tablet) 50 mg PO BEDTIME MRX1 PRN PRN Reason: Insomnia Last Admin: 05/07/24 03:00 Dose: 50 mg Allergies Allergies Allergy/AdvReac Type Severity Reaction Status Date / Time sulfamethoxazole AdvReac Intermediate Rash Verified 05/04/24 13:07 [From Bactrim] trimethoprim [From Bactrim] AdvReac Intermediate Rash Verified 05/04/24 13:07 cefaclor [From Ceclor] AdvReac Rash Verified 05/04/24 13:07 Assessment & Plan Assessment & Plan (1) Bipolar disorder: Status: Acute Code(s): F31.9 - Bipolar disorder, unspecified (2) Cannabis use disorder, moderate, dependence: Status: Acute Code(s): F12.20 - Cannabis dependence, uncomplicated Plan Patient is a 33 year old male with hx of Bipolar d/o and cannabis use d/o who self presented to [facility] at the request of his family secondary to exhibiting signs of increased deja. Plan: CV 15 minute safety checks continue home medications obtain collateral encourage groups referral to outpatient therapist discharge planning 05/06: Social with peers, attending groups. Pt reports feeling good today; pt stated, I'm just worried about my job. My sleep cycle has been weird but I slept at 10pm, woke up at 2am, took a shower then went back to sleep . Pt reports he signed 3 day notice; 3 day is up on 05/08/24. Pt stated he is going to try to quit the THC even though I hate that idea . Pt denies SI/HI/VH/AH. Start: Melatonin 6mg PO bedtime 05/07: Social with peers, attending groups. Retracted 3 day notice. Staff reported pt did not sleep last evening. Pt reports feeling great today; pt stated, I know I didn't sleep at all last night but I think it was because I was pumped during the [employer] game. Then the other patient was screaming for so long and I got interested in what the staff were going to do so it got me riled up . Pt observed taking a nap this afternoon. Discussed restarting Haldol with pt; pt agreed. Pt denies SI/HI/VH/AH. Spoke with pt's outpatient provider; Aida Kaufman; discussed current tx plan. Ms. Kaufman is in agreement of pt restarting Haldol. Start: Haldol 5mg PO bedtime Patient educated on: diagnosis, medication risk/benefits and therapeutic strategies Informed Consent: understands Reason for continued inpatient stay Substantial Risk for: med/psych decompensation Time Spent With Patient Time: Total time managing care of this patient today _30___ minutes.
[2024-05-07 20:04] VITALS: BP 148/75; PULSE 84; RESP 16; TEMP 36.9; O2SAT 96
[2024-05-07] MEDS: HaloperidoL 5 MG TABLET PO (20:31)
[2024-05-07] MEDS: Divalproex Sodium ER 250 MG TAB.ER.24H PO (20:31)
[2024-05-07] MEDS: Divalproex Sodium ER 500 MG TAB.ER.24H 1500 MG PO (20:31)
[2024-05-07] MEDS: Melatonin 3 MG TABLET 6 MG PO (23:03)
[2024-05-08] MEDS: Nicotine Polacrilex 2 MG GUM BUCCAL ×9 (00:53→23:00)
[2024-05-08 07:10] VITALS: BP 138/81; PULSE 66; RESP 18; TEMP 36.4; O2SAT 100
[2024-05-08 08:00] VITALS: BP 138/81; PULSE 66; RESP 18; TEMP 36.4; O2SAT 100
[2024-05-08] MEDS: Benztropine Mesylate 1 MG TABLET PO ×2 (08:30→20:56)
[2024-05-08] MEDS: Cariprazine HCl 3 MG CAPSULE PO (08:30)
--- NOTE | 2024-05-08 08:48 | HO.PSYCHPN ---
Subjective Subjective Date of Service: 05/08/24 Reason For Visit: SI Subjective Notes: Conditional Voluntary Interim History: Reviewed with Dr. Arce. Pt reports feeling good today; pt stated, I feel well rested. I'm hoping to be able to sleep longer than I did . Staff reported pt slept 4-5 hours last evening. Pt denies SI/HI/VH/AH. Pt denies any side effects from restarting Haldol. Continue current tx plan. Medication Compliance: Yes Side effects from medications: No Attending Groups: Yes Review of Systems Constitutional: Reports as per HPI Eyes: Reports as per HPI Reports as per HPI Cardiovascular: Reports as per HPI Respiratory: Reports as per HPI Gastrointestinal: Reports as per HPI Genitourinary: Reports as per HPI Musculoskeletal: Reports as per HPI Skin/Breast: Reports as per HPI Reports as per HPI Psychiatric: Reports as per HPI Endocrine: Reports as per HPI Hematologic/Lymphatic: Reports as per HPI Allergic/Immunologic: Reports as per HPI Mental Status Exam Mental Status Exam Narrative: Pt is alert and oriented; behavior is cooperative, friendly and calm; dressed in casual attire; mood is described as good ; eye contact appropriate; Speech is normal rate, volume and not pressured; thought process is organized and goal directed; Thought content is on tx; otherwise pertinent to relevant topics and without any delusional content, paranoid ideations or grandiosity; denies SI/HI/VH/AH. Diagnostics Vital Signs (24Hr): Vital Signs - 24 hr 05/07/24 20:04 05/08/24 07:10 Temperature 98.4 F 97.6 F Pulse Rate 84 66 Respiratory Rate 16 18 Blood Pressure 148/75 H 138/81 Pulse Oximetry 96 100 Oxygen Delivery Method Room Air Room Air BMI result Body Mass Index 32.9 Labs 05/04/24 15:17 05/04/24 15:17 Medications Medications Current Medications Acetaminophen (Acetaminophen 325 Mg Tablet) 650 mg PO Q6H PRN PRN Reason: Headache/Pain Mild Scale (1-3) Al Hydroxide/Mg Hydroxide (Magnesium Hydrox/Alum Hydrox 30 Ml Oral.Susp) 30 ml PO Q6H PRN PRN Reason: Heartburn/Nausea Benztropine Mesylate (Benztropine Mesylate 1 Mg Tablet) 1 mg PO BID [facility] Last Admin: 05/08/24 08:30 Dose: 1 mg Cariprazine (Cariprazine Hcl 3 Mg Capsule) 3 mg PO DAILY [facility] Last Admin: 05/08/24 08:30 Dose: 3 mg Divalproex Sodium (Divalproex Sodium Er 250 Mg Tab.Er.24h) 250 mg PO BEDTIME [facility] Last Admin: 05/07/24 20:31 Dose: 250 mg Divalproex Sodium (Divalproex Sodium Er 500 Mg Tab.Er.24h) 1,500 mg PO BEDTIME [facility] Last Admin: 05/07/24 20:31 Dose: 1,500 mg Haloperidol (Haloperidol 5 Mg Tablet) 5 mg PO BEDTIME [facility] Last Admin: 05/07/24 20:31 Dose: 5 mg Hydroxyzine HCl (Hydroxyzine Hcl 25 Mg Tablet) 25 mg PO Q6H PRN PRN Reason: Anxiety Last Admin: 05/07/24 19:30 Dose: 25 mg Magnesium Hydroxide (Milk Of Magnesia 30 Ml Oral.Susp) 30 ml PO DAILY PRN PRN Reason: Constipation Melatonin (Melatonin 3 Mg Tablet) 6 mg PO BEDTIME [facility] Last Admin: 05/07/24 23:03 Dose: 6 mg Nicotine (Nicotine 21 Mg Patch.Td24) 21 mg TRANSDERMA DAILY [facility] Last Admin: 05/07/24 08:15 Dose: 21 mg Nicotine Polacrilex (Nicotine Polacrilex 2 Mg Gum) 2 mg BUCCAL Q2H PRN PRN Reason: Nicotine Cravings Last Admin: 05/08/24 07:18 Dose: 2 mg Trazodone HCl (Trazodone Hcl 50 Mg Tablet) 50 mg PO BEDTIME MRX1 PRN PRN Reason: Insomnia Last Admin: 05/07/24 03:00 Dose: 50 mg Allergies Allergies Allergy/AdvReac Type Severity Reaction Status Date / Time sulfamethoxazole AdvReac Intermediate Rash Verified 05/04/24 13:07 [From Bactrim] trimethoprim [From Bactrim] AdvReac Intermediate Rash Verified 05/04/24 13:07 cefaclor [From Ceclor] AdvReac Rash Verified 05/04/24 13:07 Assessment & Plan Assessment & Plan (1) Bipolar disorder: Status: Acute Code(s): F31.9 - Bipolar disorder, unspecified (2) Cannabis use disorder, moderate, dependence: Status: Acute Code(s): F12.20 - Cannabis dependence, uncomplicated Plan Patient is a 33 year old male with hx of Bipolar d/o and cannabis use d/o who self presented to [facility] [place] [place] ER at the request of his family secondary to exhibiting signs of increased deja. Plan: CV 15 minute safety checks continue home medications obtain collateral encourage groups referral to outpatient therapist discharge planning 05/06: Social with peers, attending groups. Pt reports feeling good today; pt stated, I'm just worried about my job. My sleep cycle has been weird but I slept at 10pm, woke up at 2am, took a shower then went back to sleep . Pt reports he signed 3 day notice; 3 day is up on 05/08/24. Pt stated he is going to try to quit the THC even though I hate that idea . Pt denies SI/HI/VH/AH. Start: Melatonin 6mg PO bedtime 05/07: Social with peers, attending groups. Retracted 3 day notice. Staff reported pt did not sleep last evening. Pt reports feeling great today; pt stated, I know I didn't sleep at all last night but I think it was because I was pumped during the [employer] game. Then the other patient was screaming for so long and I got interested in what the staff were going to do so it got me riled up . Pt observed taking a nap this afternoon. Discussed restarting Haldol with pt; pt agreed. Pt denies SI/HI/VH/AH. Spoke with pt's outpatient provider; Aida Kaufman; discussed current tx plan. Ms. Kaufman is in agreement of pt restarting Haldol. Start: Haldol 5mg PO bedtime 05/08: Pt reports feeling good today; pt stated, I feel well rested. I'm hoping to be able to sleep longer than I did . Staff reported pt slept 4-5 hours last evening. Pt denies SI/HI/VH/AH. Pt denies any side effects from restarting Haldol. Continue current tx plan. Patient educated on: diagnosis, medication risk/benefits and therapeutic strategies Informed Consent: understands Reason for continued inpatient stay Substantial Risk for: med/psych decompensation Time Spent With Patient Time: Total time managing care of this patient today _20___ minutes.
[2024-05-08 09:17] LABS: Ammonia 56 umol/L (13-55)
[2024-05-08 09:23] LABS: Valproate 72.1 mcg/mL (50.0-100.0)
[2024-05-08 09:27] LABS: Alanine Aminotransferase 43 U/L (0-40); Albumin Level 4.7 g/dL (3.5-5.0); Alkaline Phosphatase 68 U/L (39-117); Aspartate Amino Transferase 22 U/L (5-37); Bilirubin Direct 0.2 mg/dL (0.0-0.5); Bilirubin Total 0.7 mg/dL (0.0-1.0); Total Protein 7.6 g/dL (6.5-8.0)
[2024-05-08] MEDS: Nicotine 21 MG PATCH.TD24 TRANSDERMA (09:37)
[2024-05-08] MEDS: hydrOXYzine HCL 25 MG TABLET PO ×2 (14:31→20:56)
[2024-05-08] MEDS: Divalproex Sodium ER 500 MG TAB.ER.24H 1500 MG PO (20:56)
[2024-05-08] MEDS: Divalproex Sodium ER 250 MG TAB.ER.24H PO (20:56)
[2024-05-08] MEDS: HaloperidoL 5 MG TABLET PO (20:57)
[2024-05-08 21:00] VITALS: BP 142/78; PULSE 86; RESP 16; TEMP 37.6; O2SAT 96
[2024-05-08] MEDS: Melatonin 3 MG TABLET 6 MG PO (22:58)
[2024-05-09] MEDS: traZODone HCL 50 MG TABLET PO ×2 (01:18→23:55)
[2024-05-09] MEDS: Nicotine Polacrilex 2 MG GUM BUCCAL ×7 (05:06→22:34)
[2024-05-09 07:35] VITALS: BP 119/77; PULSE 71; RESP 16; TEMP 36.8; O2SAT 97
[2024-05-09] MEDS: Cariprazine HCl 3 MG CAPSULE PO (08:02)
[2024-05-09] MEDS: Benztropine Mesylate 1 MG TABLET PO ×2 (08:02→21:46)
[2024-05-09] MEDS: Nicotine 21 MG PATCH.TD24 TRANSDERMA (08:02)
[2024-05-09] MEDS: hydrOXYzine HCL 25 MG TABLET PO ×3 (08:25→22:34)
--- NOTE | 2024-05-09 09:49 | HO.PSYCHPN ---
Subjective Subjective Date of Service: 05/09/24 Reason For Visit: SI Subjective Notes: Conditional Voluntary Interim History: Patient was seen and discussed in rounds today. Records and plans were reviewed. He continues to have some anxiety but overall doing better. Moderate depression still present. No SI. He did sleep with trazodone finally. No changes were made today. No complaints. Medication Compliance: Yes Side effects from medications: No Review of Systems Review of Systems Yes all other systems are reviewed and are negative Mental Status Exam Mental Status Exam Narrative: In today's visit he is alert, oriented and pleasant. Normal speech. Good eye contact. Affect is appropriate and contained. Cognitively intact. Slow thought processes. No acute signs of psychosis. Judgment is intact Diagnostics Vital Signs (24Hr): Vital Signs - 24 hr 05/08/24 21:00 05/09/24 07:35 Temperature 99.6 F 98.2 F Pulse Rate 86 71 Respiratory Rate 16 16 Blood Pressure 142/78 H 119/77 Pulse Oximetry 96 97 Oxygen Delivery Method Room Air Room Air BMI result Body Mass Index 32.9 Labs 05/04/24 15:17 05/04/24 15:17 Labs: Laboratory Results - last 48 hr 05/08/24 05/08/24 09:03 09:04 Total Bilirubin 0.7 Direct Bilirubin 0.2 AST 22 ALT 43 H Alkaline Phosphatase 68 Ammonia 56 H Total Protein 7.6 Albumin 4.7 Valproic Acid 72.1 Medications Medications Current Medications Acetaminophen (Acetaminophen 325 Mg Tablet) 650 mg PO Q6H PRN PRN Reason: Headache/Pain Mild Scale (1-3) Al Hydroxide/Mg Hydroxide (Magnesium Hydrox/Alum Hydrox 30 Ml Oral.Susp) 30 ml PO Q6H PRN PRN Reason: Heartburn/Nausea Benztropine Mesylate (Benztropine Mesylate 1 Mg Tablet) 1 mg PO BID [facility] Last Admin: 05/09/24 08:02 Dose: 1 mg Cariprazine (Cariprazine Hcl 3 Mg Capsule) 3 mg PO DAILY [facility] Last Admin: 05/09/24 08:02 Dose: 3 mg Divalproex Sodium (Divalproex Sodium Er 250 Mg Tab.Er.24h) 250 mg PO BEDTIME [facility] Last Admin: 05/08/24 20:56 Dose: 250 mg Divalproex Sodium (Divalproex Sodium Er 500 Mg Tab.Er.24h) 1,500 mg PO BEDTIME [facility] Last Admin: 05/08/24 20:56 Dose: 1,500 mg Haloperidol (Haloperidol 5 Mg Tablet) 5 mg PO BEDTIME [facility] Last Admin: 05/08/24 20:57 Dose: 5 mg Hydroxyzine HCl (Hydroxyzine Hcl 25 Mg Tablet) 25 mg PO Q6H PRN PRN Reason: Anxiety Last Admin: 05/09/24 08:25 Dose: 25 mg Magnesium Hydroxide (Milk Of Magnesia 30 Ml Oral.Susp) 30 ml PO DAILY PRN PRN Reason: Constipation Melatonin (Melatonin 3 Mg Tablet) 6 mg PO BEDTIME [facility] Last Admin: 05/08/24 22:58 Dose: 6 mg Nicotine (Nicotine 21 Mg Patch.Td24) 21 mg TRANSDERMA DAILY [facility] Last Admin: 05/09/24 08:02 Dose: 21 mg Nicotine Polacrilex (Nicotine Polacrilex 2 Mg Gum) 2 mg BUCCAL Q2H PRN PRN Reason: Nicotine Cravings Last Admin: 05/09/24 08:03 Dose: 2 mg Trazodone HCl (Trazodone Hcl 50 Mg Tablet) 50 mg PO BEDTIME MRX1 PRN PRN Reason: Insomnia Last Admin: 05/09/24 01:18 Dose: 50 mg Allergies Allergies Allergy/AdvReac Type Severity Reaction Status Date / Time sulfamethoxazole AdvReac Intermediate Rash Verified 05/04/24 13:07 [From Bactrim] trimethoprim [From Bactrim] AdvReac Intermediate Rash Verified 05/04/24 13:07 cefaclor [From Ceclor] AdvReac Rash Verified 05/04/24 13:07 Assessment & Plan Assessment & Plan (1) Bipolar disorder: Status: Acute Code(s): F31.9 - Bipolar disorder, unspecified (2) Cannabis use disorder, moderate, dependence: Status: Acute Code(s): F12.20 - Cannabis dependence, uncomplicated Plan Patient is a 33 year old male with hx of Bipolar d/o and cannabis use d/o who self presented to [facility] at the request of his family secondary to exhibiting signs of increased deja. Plan: CV 15 minute safety checks continue home medications obtain collateral encourage groups referral to outpatient therapist discharge planning 05/06: Social with peers, attending groups. Pt reports feeling good today; pt stated, I'm just worried about my job. My sleep cycle has been weird but I slept at 10pm, woke up at 2am, took a shower then went back to sleep . Pt reports he signed 3 day notice; 3 day is up on 05/08/24. Pt stated he is going to try to quit the THC even though I hate that idea . Pt denies SI/HI/VH/AH. Start: Melatonin 6mg PO bedtime 05/07: Social with peers, attending groups. Retracted 3 day notice. Staff reported pt did not sleep last evening. Pt reports feeling great today; pt stated, I know I didn't sleep at all last night but I think it was because I was pumped during the [employer] game. Then the other patient was screaming for so long and I got interested in what the staff were going to do so it got me riled up . Pt observed taking a nap this afternoon. Discussed restarting Haldol with pt; pt agreed. Pt denies SI/HI/VH/AH. Spoke with pt's outpatient provider; Aida Kaufman; discussed current tx plan. Ms. Kaufman is in agreement of pt restarting Haldol. Start: Haldol 5mg PO bedtime 05/08: Pt reports feeling good today; pt stated, I feel well rested. I'm hoping to be able to sleep longer than I did . Staff reported pt slept 4-5 hours last evening. Pt denies SI/HI/VH/AH. Pt denies any side effects from restarting Haldol. Continue current tx plan. 05/09: Continue current regimen and plans Reason for continued inpatient stay Substantial Risk for: rapid decompensation Time Spent With Patient Time: Total time managing care of this patient today ____ minutes.
[2024-05-09 21:00] VITALS: BP 147/81; PULSE 105; RESP 16; TEMP 36.7; O2SAT 97
[2024-05-09] MEDS: Divalproex Sodium ER 500 MG TAB.ER.24H 1500 MG PO (21:45)
[2024-05-09] MEDS: Divalproex Sodium ER 250 MG TAB.ER.24H PO (21:45)
[2024-05-09] MEDS: Melatonin 3 MG TABLET 6 MG PO (21:46)
[2024-05-09] MEDS: HaloperidoL 5 MG TABLET PO (21:46)
[2024-05-10] MEDS: Nicotine Polacrilex 2 MG GUM BUCCAL ×7 (02:41→23:40)
[2024-05-10] MEDS: hydrOXYzine HCL 25 MG TABLET PO ×2 (04:36→22:03)
[2024-05-10] MEDS: Benztropine Mesylate 1 MG TABLET PO ×2 (08:01→22:03)
[2024-05-10] MEDS: Cariprazine HCl 3 MG CAPSULE PO (08:01)
[2024-05-10] MEDS: Nicotine 21 MG PATCH.TD24 TRANSDERMA (08:02)
[2024-05-10 08:30] VITALS: BP 135/81; PULSE 93; RESP 16; TEMP 36.6; O2SAT 98
--- NOTE | 2024-05-10 10:07 | P.PNPSI_ITS ---
Subjective Subjective Date of Service: 05/10/24 Reason For Visit: SI Subjective Notes: Conditional Voluntary Interim History: Patient was seen and discussed in rounds today. Records and plans were reviewed. He continues to be doing better and has been brighter. Attending groups. Compliant with medications. He still has some paranoid thoughts. I increased his trazodone to 100 mg because he continues to sleep with a lot of interruptions and only a few hours. He denies any side effects. No SI Medication Compliance: Yes Side effects from medications: No Review of Systems Review of Systems Poor sleep Yes all other systems are reviewed and are negative Mental Status Exam Mental Status Exam Narrative: In today's visit he is alert, oriented and pleasant. Normal speech. Good eye contact. Affect is appropriate and contained. Cognitively intact. Slow thought processes. No acute signs of psychosis. Judgment is intact Diagnostics Vital Signs (24Hr): Vital Signs - 24 hr 05/09/24 21:00 05/10/24 08:30 Temperature 98.1 F 98 F Pulse Rate 105 H 93 Respiratory Rate 16 16 Blood Pressure 147/81 H 135/81 Pulse Oximetry 97 98 Oxygen Delivery Method Room Air Room Air BMI result Body Mass Index 32.9 Labs 05/04/24 15:17 05/04/24 15:17 Medications Medications Current Medications Acetaminophen (Acetaminophen 325 Mg Tablet) 650 mg PO Q6H PRN PRN Reason: Headache/Pain Mild Scale (1-3) Al Hydroxide/Mg Hydroxide (Magnesium Hydrox/Alum Hydrox 30 Ml Oral.Susp) 30 ml PO Q6H PRN PRN Reason: Heartburn/Nausea Benztropine Mesylate (Benztropine Mesylate 1 Mg Tablet) 1 mg PO BID [facility] Last Admin: 05/10/24 08:01 Dose: 1 mg Cariprazine (Cariprazine Hcl 3 Mg Capsule) 3 mg PO DAILY [facility] Last Admin: 05/10/24 08:01 Dose: 3 mg Divalproex Sodium (Divalproex Sodium Er 250 Mg Tab.Er.24h) 250 mg PO BEDTIME [facility] Last Admin: 05/09/24 21:45 Dose: 250 mg Divalproex Sodium (Divalproex Sodium Er 500 Mg Tab.Er.24h) 1,500 mg PO BEDTIME [facility] Last Admin: 05/09/24 21:45 Dose: 1,500 mg Haloperidol (Haloperidol 5 Mg Tablet) 5 mg PO BEDTIME [facility] Last Admin: 05/09/24 21:46 Dose: 5 mg Hydroxyzine HCl (Hydroxyzine Hcl 25 Mg Tablet) 25 mg PO Q6H PRN PRN Reason: Anxiety Last Admin: 05/10/24 04:36 Dose: 25 mg Magnesium Hydroxide (Milk Of Magnesia 30 Ml Oral.Susp) 30 ml PO DAILY PRN PRN Reason: Constipation Melatonin (Melatonin 3 Mg Tablet) 6 mg PO BEDTIME [facility] Last Admin: 05/09/24 21:46 Dose: 6 mg Nicotine (Nicotine 21 Mg Patch.Td24) 21 mg TRANSDERMA DAILY [facility] Last Admin: 05/10/24 08:02 Dose: 21 mg Nicotine Polacrilex (Nicotine Polacrilex 2 Mg Gum) 2 mg BUCCAL Q2H PRN PRN Reason: Nicotine Cravings Last Admin: 05/10/24 08:01 Dose: 2 mg Trazodone HCl (Trazodone Hcl 50 Mg Tablet) 50 mg PO BEDTIME MRX1 PRN PRN Reason: Insomnia Last Admin: 05/09/24 23:55 Dose: 50 mg Allergies Allergies Allergy/AdvReac Type Severity Reaction Status Date / Time sulfamethoxazole AdvReac Intermediate Rash Verified 05/04/24 13:07 [From Bactrim] trimethoprim [From Bactrim] AdvReac Intermediate Rash Verified 05/04/24 13:07 cefaclor [From Ceclor] AdvReac Rash Verified 05/04/24 13:07 Assessment & Plan Assessment & Plan (1) Bipolar disorder: Status: Acute Code(s): F31.9 - Bipolar disorder, unspecified (2) Cannabis use disorder, moderate, dependence: Status: Acute Code(s): F12.20 - Cannabis dependence, uncomplicated Plan Patient is a 33 year old male with hx of Bipolar d/o and cannabis use d/o who self presented to [facility] at the request of his family secondary to exhibiting signs of increased deja. Plan: CV 15 minute safety checks continue home medications obtain collateral encourage groups referral to outpatient therapist discharge planning 05/06: Social with peers, attending groups. Pt reports feeling good today; pt stated, I'm just worried about my job. My sleep cycle has been weird but I slept at 10pm, woke up at 2am, took a shower then went back to sleep . Pt reports he signed 3 day notice; 3 day is up on 05/08/24. Pt stated he is going to try to quit the THC even though I hate that idea . Pt denies SI/HI/VH/AH. Start: Melatonin 6mg PO bedtime 05/07: Social with peers, attending groups. Retracted 3 day notice. Staff reported pt did not sleep last evening. Pt reports feeling great today; pt stated, I know I didn't sleep at all last night but I think it was because I was pumped during the [employer] game. Then the other patient was screaming for so long and I got interested in what the staff were going to do so it got me riled up . Pt observed taking a nap this afternoon. Discussed restarting Haldol with pt; pt agreed. Pt denies SI/HI/VH/AH. Spoke with pt's outpatient provider; Aida Kaufman; discussed current tx plan. Ms. Kaufman is in agreement of pt restarting Haldol. Start: Haldol 5mg PO bedtime 05/08: Pt reports feeling good today; pt stated, I feel well rested. I'm hoping to be able to sleep longer than I did . Staff reported pt slept 4-5 hours last evening. Pt denies SI/HI/VH/AH. Pt denies any side effects from restarting Haldol. Continue current tx plan. 05/09: Continue current regimen and plans 05/10: Continue current plans and regimen. Patient educated on: medication risk/benefits Reason for continued inpatient stay Substantial Risk for: rapid decompensation Time Spent With Patient Time: Total time managing care of this patient today ____ minutes.
[2024-05-10 20:19] VITALS: BP 137/96; PULSE 96; RESP 18; TEMP 36.8; O2SAT 97
[2024-05-10] MEDS: Divalproex Sodium ER 500 MG TAB.ER.24H 1500 MG PO (22:02)
[2024-05-10] MEDS: HaloperidoL 5 MG TABLET PO (22:03)
[2024-05-10] MEDS: Divalproex Sodium ER 250 MG TAB.ER.24H PO (22:03)
[2024-05-10] MEDS: Melatonin 3 MG TABLET 6 MG PO (23:27)
[2024-05-10] MEDS: traZODone HCL 100 MG TABLET PO (23:40)
[2024-05-11] MEDS: Nicotine Polacrilex 2 MG GUM BUCCAL ×5 (03:40→23:18)
[2024-05-11] MEDS: hydrOXYzine HCL 25 MG TABLET PO ×2 (03:40→23:18)
[2024-05-11] MEDS: Benztropine Mesylate 1 MG TABLET PO ×2 (05:54→21:27)
[2024-05-11] MEDS: Cariprazine HCl 3 MG CAPSULE PO (05:54)
[2024-05-11] MEDS: Nicotine 21 MG PATCH.TD24 TRANSDERMA (06:05)
[2024-05-11 07:55] VITALS: BP 133/66; PULSE 78; RESP 14; TEMP 36.8; O2SAT 97
--- NOTE | 2024-05-11 09:28 | P.PNPSI_ITS ---
Subjective Subjective Date of Service: 05/11/24 Reason For Visit: SI Subjective Notes: Conditional Voluntary Interim History: Reviewed with Dr. Arce. Active on unit, attending groups. staff reported pt slept for 4 hours last evening. Pt discussed argument with peer over the weekend; pt stated, I felt like he was trying to trigger me and I was letting my inner demons out after getting bullied my entire life. I was rapping because that's what I usually do at home. I was surprised that no one told me to quite down because my mom usually does when I'm home . Pt reports he broke up with his girlfriend who is 54 years old because I was thinking about my sister and her family and thought it was be nice to have a little family of my own but my girlfriend can't have kids . Pt reports he feels he might be having an episode but I'm not sure . discussed his prior medication regimen, agreed to return to prior regimen. Increase: Haldol to 10mg PO bedtime Start: Valium 1mg PO TID Medication Compliance: Yes Side effects from medications: No Attending Groups: Yes Review of Systems Constitutional: Reports as per HPI Eyes: Reports as per HPI Reports as per HPI Cardiovascular: Reports as per HPI Respiratory: Reports as per HPI Gastrointestinal: Reports as per HPI Genitourinary: Reports as per HPI Musculoskeletal: Reports as per HPI Skin/Breast: Reports as per HPI Reports as per HPI Psychiatric: Reports as per HPI Endocrine: Reports as per HPI Hematologic/Lymphatic: Reports as per HPI Allergic/Immunologic: Reports as per HPI Mental Status Exam Mental Status Exam Narrative: Pt is alert and oriented; behavior is cooperative and talkative; dressed in casual attire; mood is described as good ; eye contact appropriate; Speech is rapid, and pressured; thought process is racing; Thought content is on tx; denies SI/HI/VH/AH. Diagnostics Vital Signs (24Hr): Vital Signs - 24 hr 05/10/24 20:19 05/11/24 07:55 Temperature 98.3 F 98.3 F Pulse Rate 96 78 Respiratory Rate 18 14 Blood Pressure 137/96 H 133/66 Pulse Oximetry 97 97 Oxygen Delivery Method Room Air Room Air BMI result Body Mass Index 32.9 Labs 05/04/24 15:17 05/04/24 15:17 Medications Medications Current Medications Acetaminophen (Acetaminophen 325 Mg Tablet) 650 mg PO Q6H PRN PRN Reason: Headache/Pain Mild Scale (1-3) Al Hydroxide/Mg Hydroxide (Magnesium Hydrox/Alum Hydrox 30 Ml Oral.Susp) 30 ml PO Q6H PRN PRN Reason: Heartburn/Nausea Benztropine Mesylate (Benztropine Mesylate 1 Mg Tablet) 1 mg PO BID COUNTS [facility] 234 BEDS AT THE [facility] Last Admin: 05/11/24 05:54 Dose: 1 mg Cariprazine (Cariprazine Hcl 3 Mg Capsule) 3 mg PO DAILY COUNTS INCLUDE 234 BEDS AT THE [facility] Last Admin: 05/11/24 05:54 Dose: 3 mg Divalproex Sodium (Divalproex Sodium Er 250 Mg Tab.Er.24h) 250 mg PO BEDTIME COUNTS INCLUDE 234 BEDS AT THE [facility] Last Admin: 05/10/24 22:03 Dose: 250 mg Divalproex Sodium (Divalproex Sodium Er 500 Mg Tab.Er.24h) 1,500 mg PO BEDTIME COUNTS INCLUDE 234 BEDS AT THE [facility] Last Admin: 05/10/24 22:02 Dose: 1,500 mg Haloperidol (Haloperidol 5 Mg Tablet) 5 mg PO BEDTIME COUNTS INCLUDE 234 BEDS AT THE [facility] Last Admin: 05/10/24 22:03 Dose: 5 mg Hydroxyzine HCl (Hydroxyzine Hcl 25 Mg Tablet) 25 mg PO Q6H PRN PRN Reason: Anxiety Last Admin: 05/11/24 03:40 Dose: 25 mg Magnesium Hydroxide (Milk Of Magnesia 30 Ml Oral.Susp) 30 ml PO DAILY PRN PRN Reason: Constipation Melatonin (Melatonin 3 Mg Tablet) 6 mg PO BEDTIME COUNTS INCLUDE 234 BEDS AT THE [facility] Last Admin: 05/10/24 23:27 Dose: 6 mg Nicotine (Nicotine 21 Mg Patch.Td24) 21 mg TRANSDERMA DAILY COUNTS INCLUDE 234 BEDS AT THE [facility] Last Admin: 05/11/24 06:05 Dose: 21 mg Nicotine Polacrilex (Nicotine Polacrilex 2 Mg Gum) 2 mg BUCCAL Q2H PRN PRN Reason: Nicotine Cravings Last Admin: 05/11/24 06:05 Dose: 2 mg Trazodone HCl (Trazodone Hcl 100 Mg Tablet) 100 mg PO BEDTIME MRX1 PRN PRN Reason: Insomnia Last Admin: 05/10/24 23:40 Dose: 100 mg Allergies Allergies Allergy/AdvReac Type Severity Reaction Status Date / Time sulfamethoxazole AdvReac Intermediate Rash Verified 05/04/24 13:07 [From Bactrim] trimethoprim [From Bactrim] AdvReac Intermediate Rash Verified 05/04/24 13:07 cefaclor [From Ceclor] AdvReac Rash Verified 05/04/24 13:07 Assessment & Plan Assessment & Plan (1) Bipolar disorder: Status: Acute Code(s): F31.9 - Bipolar disorder, unspecified (2) Cannabis use disorder, moderate, dependence: Status: Acute Code(s): F12.20 - Cannabis dependence, uncomplicated Plan Patient is a 33 year old male with hx of Bipolar d/o and cannabis use d/o who self presented [place] [facility] [facility] at the request of his family secondary to exhibiting signs of increased deja. Plan: CV 15 minute safety checks continue home medications obtain collateral encourage groups referral to outpatient therapist discharge planning 05/06: Social with peers, attending groups. Pt reports feeling good today; pt stated, I'm just worried about my job. My sleep cycle has been weird but I slept at 10pm, woke up at 2am, took a shower then went back to sleep . Pt reports he signed 3 day notice; 3 day is up on 05/08/24. Pt stated he is going to try to quit the THC even though I hate that idea . Pt denies SI/HI/VH/AH. Start: Melatonin 6mg PO bedtime 05/07: Social with peers, attending groups. Retracted 3 day notice. Staff reported pt did not sleep last evening. Pt reports feeling great today; pt stated, I know I didn't sleep at all last night but I think it was because I was pumped during the [employer] game. Then the other patient was screaming for so long and I got interested in what the staff were going to do so it got me riled up . Pt observed taking a nap this afternoon. Discussed restarting Haldol with pt; pt agreed. Pt denies SI/HI/VH/AH. Spoke with pt's outpatient provider; Aida Kaufman; discussed current tx plan. Ms. Kaufman is in agreement of pt restarting Haldol. Start: Haldol 5mg PO bedtime 05/08: Pt reports feeling good today; pt stated, I feel well rested. I'm hoping to be able to sleep longer than I did . Staff reported pt slept 4-5 hours last evening. Pt denies SI/HI/VH/AH. Pt denies any side effects from restarting Haldol. Continue current tx plan. 05/09: Continue current regimen and plans 05/10: Continue current plans and regimen. 05/11: Active on unit, attending groups. staff reported pt slept for 4 hours last evening. Pt discussed argument with peer over the weekend; pt stated, I felt like he was trying to trigger me and I was letting my inner demons out after getting bullied my entire life. I was rapping because that's what I usually do at home. I was surprised that no one told me to quite down because my mom usually does when I'm home . Pt reports he broke up with his girlfriend who is 54 years old because I was thinking about my sister and her family and thought it was be nice to have a little family of my own but my girlfriend can't have kids . Pt reports he feels he might be having an episode but I'm not sure . discussed his prior medication regimen, agreed to return to prior regimen. Increase: Haldol to 10mg PO bedtime Start: Valium 1mg PO TID Patient educated on: diagnosis, medication risk/benefits and therapeutic strategies Informed Consent: understands Reason for continued inpatient stay Substantial Risk for: med/psych decompensation Time Spent With Patient Time: Total time managing care of this patient today _30___ minutes.
[2024-05-11] MEDS: diazePAM 2 MG TABLET 1 MG PO ×3 (10:22→21:26)
[2024-05-11 19:36] VITALS: BP 139/81; PULSE 81; RESP 16; TEMP 36.5; O2SAT 96
[2024-05-11] MEDS: Divalproex Sodium ER 500 MG TAB.ER.24H 1500 MG PO (21:27)
[2024-05-11] MEDS: HaloperidoL 5 MG TABLET 10 MG PO (21:27)
[2024-05-11] MEDS: Divalproex Sodium ER 250 MG TAB.ER.24H PO (21:27)
[2024-05-11] MEDS: Melatonin 3 MG TABLET 6 MG PO (23:50)
[2024-05-12 07:46] VITALS: BP 113/77; PULSE 66; RESP 16; TEMP 36.4; O2SAT 96
--- NOTE | 2024-05-12 08:52 | HO.PSYCHPN ---
Subjective Subjective Date of Service: 05/12/24 Reason For Visit: SI Subjective Notes: Conditional Voluntary Interim History: Reviewed with Dr. Arce. staff reported pt slept for 6 hours last evening. Pt presents calmer today. Pt stated, I feel like I'm starting to get back to my old self again. My head feels right. I wish I didn't have to take these meds because I'm worried about gaining weight . Pt reports he spoke to his parents who think I'm doing better ; pt stated, I spoke to my girlfriend and I told her I was in a manic state and didn't mean what I said. She knew I was just yapping . Pt denies SI/HI/VH/AH. Continue current tx plan. Medication Compliance: Yes Side effects from medications: No Attending Groups: Yes Review of Systems Constitutional: Reports as per HPI Eyes: Reports as per HPI Reports as per HPI Cardiovascular: Reports as per HPI Respiratory: Reports as per HPI Gastrointestinal: Reports as per HPI Genitourinary: Reports as per HPI Musculoskeletal: Reports as per HPI Skin/Breast: Reports as per HPI Reports as per HPI Psychiatric: Reports as per HPI Endocrine: Reports as per HPI Hematologic/Lymphatic: Reports as per HPI Allergic/Immunologic: Reports as per HPI Mental Status Exam Mental Status Exam Narrative: Pt is alert and oriented; behavior is cooperative, friendly and calm; dressed in casual attire; mood is described as good ; eye contact appropriate; Speech is normal rate, volume and not pressured; thought process is organized; Thought content is on tx; otherwise pertinent to relevant topics and without any delusional content, paranoid ideations or grandiosity; denies SI/HI/VH/AH. Diagnostics Vital Signs (24Hr): Vital Signs - 24 hr 05/11/24 19:36 05/12/24 07:46 Temperature 97.7 F 97.5 F Pulse Rate 81 66 Respiratory Rate 16 16 Blood Pressure 139/81 113/77 Pulse Oximetry 96 96 Oxygen Delivery Method Room Air Room Air BMI result Body Mass Index 32.9 Labs 05/04/24 15:17 05/04/24 15:17 Medications Medications Current Medications Acetaminophen (Acetaminophen 325 Mg Tablet) 650 mg PO Q6H PRN PRN Reason: Headache/Pain Mild Scale (1-3) Al Hydroxide/Mg Hydroxide (Magnesium Hydrox/Alum Hydrox 30 Ml Oral.Susp) 30 ml PO Q6H PRN PRN Reason: Heartburn/Nausea Benztropine Mesylate (Benztropine Mesylate 1 Mg Tablet) 1 mg PO BID [facility] Last Admin: 05/11/24 21:27 Dose: 1 mg Cariprazine (Cariprazine Hcl 3 Mg Capsule) 3 mg PO DAILY [facility] Last Admin: 05/11/24 05:54 Dose: 3 mg Diazepam (Diazepam 2 Mg Tablet) 1 mg PO TID [facility] Last Admin: 05/11/24 21:26 Dose: 1 mg Divalproex Sodium (Divalproex Sodium Er 250 Mg Tab.Er.24h) 250 mg PO BEDTIME [facility] Last Admin: 05/11/24 21:27 Dose: 250 mg Divalproex Sodium (Divalproex Sodium Er 500 Mg Tab.Er.24h) 1,500 mg PO BEDTIME [facility] Last Admin: 05/11/24 21:27 Dose: 1,500 mg Haloperidol (Haloperidol 5 Mg Tablet) 10 mg PO BEDTIME [facility] Last Admin: 05/11/24 21:27 Dose: 10 mg Hydroxyzine HCl (Hydroxyzine Hcl 25 Mg Tablet) 25 mg PO Q6H PRN PRN Reason: Anxiety Last Admin: 05/11/24 23:18 Dose: 25 mg Magnesium Hydroxide (Milk Of Magnesia 30 Ml Oral.Susp) 30 ml PO DAILY PRN PRN Reason: Constipation Melatonin (Melatonin 3 Mg Tablet) 6 mg PO BEDTIME [facility] Last Admin: 05/11/24 23:50 Dose: 6 mg Nicotine (Nicotine 21 Mg Patch.Td24) 21 mg TRANSDERMA DAILY [facility] Last Admin: 05/11/24 06:05 Dose: 21 mg Nicotine Polacrilex (Nicotine Polacrilex 2 Mg Gum) 2 mg BUCCAL Q2H PRN PRN Reason: Nicotine Cravings Last Admin: 05/11/24 23:18 Dose: 2 mg Trazodone HCl (Trazodone Hcl 100 Mg Tablet) 100 mg PO BEDTIME MRX1 PRN PRN Reason: Insomnia Last Admin: 05/10/24 23:40 Dose: 100 mg Allergies Allergies Allergy/AdvReac Type Severity Reaction Status Date / Time sulfamethoxazole AdvReac Intermediate Rash Verified 05/04/24 13:07 [From Bactrim] trimethoprim [From Bactrim] AdvReac Intermediate Rash Verified 05/04/24 13:07 cefaclor [From Ceclor] Jaida Rash Verified 05/04/24 13:07 Assessment & Plan Assessment & Plan (1) Bipolar disorder: Status: Acute Code(s): F31.9 - Bipolar disorder, unspecified (2) Cannabis use disorder, moderate, dependence: Status: Acute Code(s): F12.20 - Cannabis dependence, uncomplicated Plan Patient is a 33 year old male with hx of Bipolar d/o and cannabis use d/o who self presented to [facility] [place] [facility] at the request of his family secondary to exhibiting signs of increased deja. Plan: CV 15 minute safety checks continue home medications obtain collateral encourage groups referral to outpatient therapist discharge planning 05/06: Social with peers, attending groups. Pt reports feeling good today; pt stated, I'm just worried about my job. My sleep cycle has been weird but I slept at 10pm, woke up at 2am, took a shower then went back to sleep . Pt reports he signed 3 day notice; 3 day is up on 05/08/24. Pt stated he is going to try to quit the THC even though I hate that idea . Pt denies SI/HI/VH/AH. Start: Melatonin 6mg PO bedtime 05/07: Social with peers, attending groups. Retracted 3 day notice. Staff reported pt did not sleep last evening. Pt reports feeling great today; pt stated, I know I didn't sleep at all last night but I think it was because I was pumped during the [employer] game. Then the other patient was screaming for so long and I got interested in what the staff were going to do so it got me riled up . Pt observed taking a nap this afternoon. Discussed restarting Haldol with pt; pt agreed. Pt denies SI/HI/VH/AH. Spoke with pt's outpatient provider; Aida Kaufman; discussed current tx plan. Ms. Kaufman is in agreement of pt restarting Haldol. Start: Haldol 5mg PO bedtime 05/08: Pt reports feeling good today; pt stated, I feel well rested. I'm hoping to be able to sleep longer than I did . Staff reported pt slept 4-5 hours last evening. Pt denies SI/HI/VH/AH. Pt denies any side effects from restarting Haldol. Continue current tx plan. 6/15: Continue current regimen and plans 05/10: Continue current plans and regimen. 05/11: Active on unit, attending groups. staff reported pt slept for 4 hours last evening. Pt discussed argument with peer over the weekend; pt stated, I felt like he was trying to trigger me and I was letting my inner demons out after getting bullied my entire life. I was rapping because that's what I usually do at home. I was surprised that no one told me to quite down because my mom usually does when I'm home . Pt reports he broke up with his girlfriend who is 54 years old because I was thinking about my sister and her family and thought it was be nice to have a little family of my own but my girlfriend can't have kids . Pt reports he feels he might be having an episode but I'm not sure . discussed his prior medication regimen, agreed to return to prior regimen. Increase: Haldol to 10mg PO bedtime Start: Valium 1mg PO TID 05/12: staff reported pt slept for 6 hours last evening. Pt presents calmer today. Pt stated, I feel like I'm starting to get back to my old self again. My head feels right. I wish I didn't have to take these meds because I'm worried about gaining weight . Pt reports he spoke to his parents who think I'm doing better ; pt stated, I spoke to my girlfriend and I told her I was in a manic state and didn't mean what I said. She knew I was just yapping . Pt denies SI/HI/VH/AH. Vaproic acid level on 05/12/24 is 59.1 ;Continue current tx plan. Patient educated on: diagnosis, medication risk/benefits and therapeutic strategies Informed Consent: understands Reason for continued inpatient stay Substantial Risk for: med/psych decompensation Time Spent With Patient Time: Total time managing care of this patient today _20___ minutes.
[2024-05-12] MEDS: diazePAM 2 MG TABLET 1 MG PO ×3 (08:59→20:28)
[2024-05-12] MEDS: Benztropine Mesylate 1 MG TABLET PO ×2 (08:59→20:28)
[2024-05-12] MEDS: Cariprazine HCl 3 MG CAPSULE PO (08:59)
[2024-05-12] MEDS: Nicotine 21 MG PATCH.TD24 TRANSDERMA (09:00)
[2024-05-12] MEDS: Nicotine Polacrilex 2 MG GUM BUCCAL ×4 (09:17→19:06)
[2024-05-12 09:29] LABS: Ammonia 48 umol/L (13-55)
[2024-05-12 09:39] LABS: Valproate 59.1 mcg/mL (50.0-100.0)
[2024-05-12 09:41] LABS: Alanine Aminotransferase 44 U/L (0-40); Albumin Level 4.3 g/dL (3.5-5.0); Alkaline Phosphatase 64 U/L (39-117); Aspartate Amino Transferase 22 U/L (5-37); Bilirubin Direct 0.2 mg/dL (0.0-0.5); Bilirubin Total 0.6 mg/dL (0.0-1.0); Total Protein 7.3 g/dL (6.5-8.0)
[2024-05-12 20:00] VITALS: BP 125/69; PULSE 75; RESP 18; TEMP 36.7; O2SAT 96
[2024-05-12] MEDS: Divalproex Sodium ER 250 MG TAB.ER.24H PO (20:28)
[2024-05-12] MEDS: Divalproex Sodium ER 500 MG TAB.ER.24H 1500 MG PO (20:29)
[2024-05-12] MEDS: HaloperidoL 5 MG TABLET 10 MG PO (20:29)
[2024-05-12] MEDS: Melatonin 3 MG TABLET 6 MG PO (21:56)
[2024-05-13 07:42] VITALS: BP 116/66; PULSE 70; RESP 16; TEMP 36.5; O2SAT 97
--- NOTE | 2024-05-13 08:34 | HO.PSYCHPN ---
Subjective Subjective Date of Service: 05/13/24 Reason For Visit: SI Subjective Notes: Conditional Voluntary Interim History: Reviewed with Dr. Arce. Pt continues to report improved sleep. Pt stated, I'm not feeling depressed. Just sleepy. I wake up and I feel good . Pt denies any side effects from medications. Pt reports he is hoping to return home soon. Pt denies SI/HI/VH/AH. Plan to discharge home this week if pt continues to improve. Valproic acid level on 05/12/24 was 59.1 Continue current tx plan. Medication Compliance: Yes Side effects from medications: No Attending Groups: Yes Review of Systems Constitutional: Reports as per HPI Eyes: Reports as per HPI Reports as per HPI Cardiovascular: Reports as per HPI Respiratory: Reports as per HPI Gastrointestinal: Reports as per HPI Genitourinary: Reports as per HPI Musculoskeletal: Reports as per HPI Skin/Breast: Reports as per HPI Reports as per HPI Psychiatric: Reports as per HPI Endocrine: Reports as per HPI Hematologic/Lymphatic: Reports as per HPI Allergic/Immunologic: Reports as per HPI Mental Status Exam Mental Status Exam Narrative: Pt is alert and oriented; behavior is cooperative, friendly and calm; dressed in casual attire; mood is described as good ; eye contact appropriate; Speech is normal rate, volume and not pressured; thought process is organized; Thought content is on tx; otherwise pertinent to relevant topics and without any delusional content, paranoid ideations or grandiosity; denies SI/HI/VH/AH. Diagnostics Vital Signs (24Hr): Vital Signs - 24 hr 05/12/24 20:00 05/13/24 07:42 Temperature 98.1 F 97.7 F Pulse Rate 75 70 Respiratory Rate 18 16 Blood Pressure 125/69 116/66 Pulse Oximetry 96 97 Oxygen Delivery Method Room Air Room Air BMI result Body Mass Index 32.9 Labs 05/04/24 15:17 05/04/24 15:17 Labs: Laboratory Results - last 48 hr 05/12/24 09:07 Total Bilirubin 0.6 Direct Bilirubin 0.2 AST 22 ALT 44 H Alkaline Phosphatase 64 Ammonia 48 Total Protein 7.3 Albumin 4.3 Valproic Acid 59.1 Medications Medications Current Medications Acetaminophen (Acetaminophen 325 Mg Tablet) 650 mg PO Q6H PRN PRN Reason: Headache/Pain Mild Scale (1-3) Al Hydroxide/Mg Hydroxide (Magnesium Hydrox/Alum Hydrox 30 Ml Oral.Susp) 30 ml PO Q6H PRN PRN Reason: Heartburn/Nausea Benztropine Mesylate (Benztropine Mesylate 1 Mg Tablet) 1 mg PO BID [facility] Last Admin: 05/12/24 20:28 Dose: 1 mg Cariprazine (Cariprazine Hcl 3 Mg Capsule) 3 mg PO DAILY [facility] Last Admin: 05/12/24 08:59 Dose: 3 mg Diazepam (Diazepam 2 Mg Tablet) 1 mg PO TID [facility] Last Admin: 05/12/24 20:28 Dose: 1 mg Divalproex Sodium (Divalproex Sodium Er 250 Mg Tab.Er.24h) 250 mg PO BEDTIME [facility] Last Admin: 05/12/24 20:28 Dose: 250 mg Divalproex Sodium (Divalproex Sodium Er 500 Mg Tab.Er.24h) 1,500 mg PO BEDTIME [facility] Last Admin: 05/12/24 20:29 Dose: 1,500 mg Haloperidol (Haloperidol 5 Mg Tablet) 10 mg PO BEDTIME [facility] Last Admin: 05/12/24 20:29 Dose: 10 mg Hydroxyzine HCl (Hydroxyzine Hcl 25 Mg Tablet) 25 mg PO Q6H PRN PRN Reason: Anxiety Last Admin: 05/11/24 23:18 Dose: 25 mg Magnesium Hydroxide (Milk Of Magnesia 30 Ml Oral.Susp) 30 ml PO DAILY PRN PRN Reason: Constipation Melatonin (Melatonin 3 Mg Tablet) 6 mg PO BEDTIME [facility] Last Admin: 05/12/24 21:56 Dose: 6 mg Nicotine (Nicotine 21 Mg Patch.Td24) 21 mg TRANSDERMA DAILY [facility] Last Admin: 05/12/24 09:00 Dose: 21 mg Nicotine Polacrilex (Nicotine Polacrilex 2 Mg Gum) 2 mg BUCCAL Q2H PRN PRN Reason: Nicotine Cravings Last Admin: 05/12/24 19:06 Dose: 2 mg Trazodone HCl (Trazodone Hcl 100 Mg Tablet) 100 mg PO BEDTIME MRX1 PRN PRN Reason: Insomnia Last Admin: 05/10/24 23:40 Dose: 100 mg Allergies Allergies Allergy/AdvReac Type Severity Reaction Status Date / Time sulfamethoxazole AdvReac Intermediate Rash Verified 05/04/24 13:07 [From Bactrim] trimethoprim [From Bactrim] AdvReac Intermediate Rash Verified 05/04/24 13:07 cefaclor [From Ceclor] AdvReac Rash Verified 05/04/24 13:07 Assessment & Plan Assessment & Plan (1) Bipolar disorder: Status: Acute Code(s): F31.9 - Bipolar disorder, unspecified (2) Cannabis use disorder, moderate, dependence: Status: Acute Code(s): F12.20 - Cannabis dependence, uncomplicated Plan Patient is a 33 year old male with hx of Bipolar d/o and cannabis use d/o who self presented to [facility] [place] [facility] at the request of his family secondary to exhibiting signs of increased deja. Plan: CV 15 minute safety checks continue home medications obtain collateral encourage groups referral to outpatient therapist discharge planning 05/06: Social with peers, attending groups. Pt reports feeling good today; pt stated, I'm just worried about my job. My sleep cycle has been weird but I slept at 10pm, woke up at 2am, took a shower then went back to sleep . Pt reports he signed 3 day notice; 3 day is up on 05/08/24. Pt stated he is going to try to quit the THC even though I hate that idea . Pt denies SI/HI/VH/AH. Start: Melatonin 6mg PO bedtime 05/07: Social with peers, attending groups. Retracted 3 day notice. Staff reported pt did not sleep last evening. Pt reports feeling great today; pt stated, I know I didn't sleep at all last night but I think it was because I was pumped during the [employer] game. Then the other patient was screaming for so long and I got interested in what the staff were going to do so it got me riled up . Pt observed taking a nap this afternoon. Discussed restarting Haldol with pt; pt agreed. Pt denies SI/HI/VH/AH. Spoke with pt's outpatient provider; Aida Kaufman; discussed current tx plan. Cortney Mandeep is in agreement of pt restarting Haldol. Start: Haldol 5mg PO bedtime 05/08: Pt reports feeling good today; pt stated, I feel well rested. I'm hoping to be able to sleep longer than I did . Staff reported pt slept 4-5 hours last evening. Pt denies SI/HI/VH/AH. Pt denies any side effects from restarting Haldol. Continue current tx plan. 05/09: Continue current regimen and plans 05/10: Continue current plans and regimen. 05/11: Active on unit, attending groups. staff reported pt slept for 4 hours last evening. Pt discussed argument with peer over the weekend; pt stated, I felt like he was trying to trigger me and I was letting my inner demons out after getting bullied my entire life. I was rapping because that's what I usually do at home. I was surprised that no one told me to quite down because my mom usually does when I'm home . Pt reports he broke up with his girlfriend who is 54 years old because I was thinking about my sister and her family and thought it was be nice to have a little family of my own but my girlfriend can't have kids . Pt reports he feels he might be having an episode but I'm not sure . discussed his prior medication regimen, agreed to return to prior regimen. Increase: Haldol to 10mg PO bedtime Start: Valium 1mg PO TID 05/12: staff reported pt slept for 6 hours last evening. Pt presents calmer today. Pt stated, I feel like I'm starting to get back to my old self again. My head feels right. I wish I didn't have to take these meds because I'm worried about gaining weight . Pt reports he spoke to his parents who think I'm doing better ; pt stated, I spoke to my girlfriend and I told her I was in a manic state and didn't mean what I said. She knew I was just yapping . Pt denies SI/HI/VH/AH. Vaproic acid level on 05/12/24 is 59.1 ;Continue current tx plan. 05/13: Pt continues to report improved sleep. Pt stated, I'm not feeling depressed. Just sleepy. I wake up and I feel good . Pt denies any side effects from medications. Pt reports he is hoping to return home soon. Pt denies SI/HI/VH/AH. Plan to discharge home this week if pt continues to improve. Continue current tx plan. Patient educated on: diagnosis, medication risk/benefits and therapeutic strategies Informed Consent: understands Reason for continued inpatient stay Substantial Risk for: med/psych decompensation Time Spent With Patient Time: Total time managing care of this patient today _20___ minutes.
[2024-05-13] MEDS: diazePAM 2 MG TABLET 1 MG PO ×3 (08:57→20:14)
[2024-05-13] MEDS: Cariprazine HCl 3 MG CAPSULE PO (08:58)
[2024-05-13] MEDS: Benztropine Mesylate 1 MG TABLET PO ×2 (08:58→20:14)
[2024-05-13] MEDS: Nicotine 21 MG PATCH.TD24 TRANSDERMA (09:20)
[2024-05-13] MEDS: Nicotine Polacrilex 2 MG GUM BUCCAL ×4 (12:28→21:14)
[2024-05-13 20:00] VITALS: BP 125/70; PULSE 75; RESP 16; TEMP 36.9; O2SAT 99
[2024-05-13] MEDS: Divalproex Sodium ER 500 MG TAB.ER.24H 1500 MG PO (20:15)
[2024-05-13] MEDS: HaloperidoL 5 MG TABLET 10 MG PO (20:15)
[2024-05-13] MEDS: Divalproex Sodium ER 250 MG TAB.ER.24H PO (20:15)
[2024-05-13] MEDS: Melatonin 3 MG TABLET 6 MG PO (21:46)
[2024-05-14] MEDS: Nicotine Polacrilex 2 MG GUM BUCCAL ×6 (05:53→20:41)
[2024-05-14 07:00] VITALS: BMI 33.5
[2024-05-14 08:05] VITALS: BP 128/65; PULSE 66; RESP 16; TEMP 36.4; O2SAT 96
--- NOTE | 2024-05-14 09:05 | HO.PSYCHPN ---
Subjective Subjective Date of Service: 05/14/24 Reason For Visit: SI Subjective Notes: Conditional Voluntary Interim History: Reviewed with Dr. Velásquez. Active on unit, social with peers, attending groups. Pt presents organized, and future oriented. He reports feeling good and stable . Pt has been sleeping well and expressing desire to be discharged home. T/W and high school social studies teacher, Donna, had family meeting with pt and his father. Pt's father expressed concern regarding discharge tomorrow and discussed how he presented two years ago during his hospitalization. T/W and Donna explained that pt has clinically improved in his mood, thought process and behavior. Pt does not present with symptoms of deja at this time. Pt and father were educated regarding importance of medication compliance; they both expressed understanding. Pt was educated regarding not using marijuana, despite his desire to do so; pt expressed understanding. Plan is to discharge home tomorrow and for patient to follow up with his outpatient providers. Medication Compliance: Yes Side effects from medications: No Attending Groups: Yes Review of Systems Constitutional: Reports as per HPI Eyes: Reports as per HPI Reports as per HPI Cardiovascular: Reports as per HPI Respiratory: Reports as per HPI Gastrointestinal: Reports as per HPI Genitourinary: Reports as per HPI Musculoskeletal: Reports as per HPI Skin/Breast: Reports as per HPI Reports as per HPI Psychiatric: Reports as per HPI Endocrine: Reports as per HPI Hematologic/Lymphatic: Reports as per HPI Allergic/Immunologic: Reports as per HPI Mental Status Exam Mental Status Exam Narrative: Pt is alert and oriented; behavior is cooperative, friendly and calm; dressed in casual attire; mood is described as good ; eye contact appropriate; Speech is normal rate, volume and not pressured; thought process is organized; Thought content is on tx; otherwise pertinent to relevant topics and without any delusional content, paranoid ideations or grandiosity; denies SI/HI/VH/AH. Diagnostics Vital Signs (24Hr): Vital Signs - 24 hr 05/13/24 20:00 05/14/24 08:05 Temperature 98.4 F 97.5 F Pulse Rate 75 66 Respiratory Rate 16 16 Blood Pressure 125/70 128/65 Pulse Oximetry 99 96 Oxygen Delivery Method Room Air Room Air BMI result Body Mass Index 32.9 Labs 05/04/24 15:17 05/04/24 15:17 Labs: Laboratory Results - last 48 hr 05/12/24 09:07 Total Bilirubin 0.6 Direct Bilirubin 0.2 AST 22 ALT 44 H Alkaline Phosphatase 64 Ammonia 48 Total Protein 7.3 Albumin 4.3 Valproic Acid 59.1 Medications Medications Current Medications Acetaminophen (Acetaminophen 325 Mg Tablet) 650 mg PO Q6H PRN PRN Reason: Headache/Pain Mild Scale (1-3) Al Hydroxide/Mg Hydroxide (Magnesium Hydrox/Alum Hydrox 30 Ml Oral.Susp) 30 ml PO Q6H PRN PRN Reason: Heartburn/Nausea Benztropine Mesylate (Benztropine Mesylate 1 Mg Tablet) 1 mg PO BID [facility] Last Admin: 05/13/24 20:14 Dose: 1 mg Cariprazine (Cariprazine Hcl 3 Mg Capsule) 3 mg PO DAILY [facility] Last Admin: 05/13/24 08:58 Dose: 3 mg Diazepam (Diazepam 2 Mg Tablet) 1 mg PO TID [facility] Last Admin: 05/13/24 20:14 Dose: 1 mg Divalproex Sodium (Divalproex Sodium Er 250 Mg Tab.Er.24h) 250 mg PO BEDTIME [facility] Last Admin: 05/13/24 20:15 Dose: 250 mg Divalproex Sodium (Divalproex Sodium Er 500 Mg Tab.Er.24h) 1,500 mg PO BEDTIME [facility] Last Admin: 05/13/24 20:15 Dose: 1,500 mg Haloperidol (Haloperidol 5 Mg Tablet) 10 mg PO BEDTIME [facility] Last Admin: 05/13/24 20:15 Dose: 10 mg Hydroxyzine HCl (Hydroxyzine Hcl 25 Mg Tablet) 25 mg PO Q6H PRN PRN Reason: Anxiety Last Admin: 05/11/24 23:18 Dose: 25 mg Magnesium Hydroxide (Milk Of Magnesia 30 Ml Oral.Susp) 30 ml PO DAILY PRN PRN Reason: Constipation Melatonin (Melatonin 3 Mg Tablet) 6 mg PO BEDTIME [facility] Last Admin: 05/13/24 21:46 Dose: 6 mg Nicotine (Nicotine 21 Mg Patch.Td24) 21 mg TRANSDERMA DAILY [facility] Last Admin: 05/13/24 09:20 Dose: 21 mg Nicotine Polacrilex (Nicotine Polacrilex 2 Mg Gum) 2 mg BUCCAL Q2H PRN PRN Reason: Nicotine Cravings Last Admin: 05/14/24 05:53 Dose: 2 mg Trazodone HCl (Trazodone Hcl 100 Mg Tablet) 100 mg PO BEDTIME MRX1 PRN PRN Reason: Insomnia Last Admin: 05/10/24 23:40 Dose: 100 mg Allergies Allergies Allergy/AdvReac Type Severity Reaction Status Date / Time sulfamethoxazole AdvReac Intermediate Rash Verified 05/04/24 13:07 [From Bactrim] trimethoprim [From Bactrim] AdvReac Intermediate Rash Verified 05/04/24 13:07 cefaclor [From Ceclor] AdvReac Rash Verified 05/04/24 13:07 Assessment & Plan Assessment & Plan (1) Bipolar disorder: Status: Acute Code(s): F31.9 - Bipolar disorder, unspecified (2) Cannabis use disorder, moderate, dependence: Status: Acute Code(s): F12.20 - Cannabis dependence, uncomplicated Plan Patient is a 33 year old male with hx of Bipolar d/o and cannabis use d/o who self presented to [facility] at the request of his family secondary to exhibiting signs of increased deja. Plan: CV 15 minute safety checks continue home medications obtain collateral encourage groups referral to outpatient therapist discharge planning 05/06: Social with peers, attending groups. Pt reports feeling good today; pt stated, I'm just worried about my job. My sleep cycle has been weird but I slept at 10pm, woke up at 2am, took a shower then went back to sleep . Pt reports he signed 3 day notice; 3 day is up on 05/08/24. Pt stated he is going to try to quit the THC even though I hate that idea . Pt denies SI/HI/VH/AH. Start: Melatonin 6mg PO bedtime 05/07: Social with peers, attending groups. Retracted 3 day notice. Staff reported pt did not sleep last evening. Pt reports feeling great today; pt stated, I know I didn't sleep at all last night but I think it was because I was pumped during the [employer] game. Then the other patient was screaming for so long and I got interested in what the staff were going to do so it got me riled up . Pt observed taking a nap this afternoon. Discussed restarting Haldol with pt; pt agreed. Pt denies SI/HI/VH/AH. Spoke with pt's outpatient provider; Aida Kaufman; discussed current tx plan. Ms. Kaufman is in agreement of pt restarting Haldol. Start: Haldol 5mg PO bedtime 05/08: Pt reports feeling good today; pt stated, I feel well rested. I'm hoping to be able to sleep longer than I did . Staff reported pt slept 4-5 hours last evening. Pt denies SI/HI/VH/AH. Pt denies any side effects from restarting Haldol. Continue current tx plan. 05/09: Continue current regimen and plans 05/10: Continue current plans and regimen. 05/11: Active on unit, attending groups. staff reported pt slept for 4 hours last evening. Pt discussed argument with peer over the weekend; pt stated, I felt like he was trying to trigger me and I was letting my inner demons out after getting bullied my entire life. I was rapping because that's what I usually do at home. I was surprised that no one told me to quite down because my mom usually does when I'm home . Pt reports he broke up with his girlfriend who is 54 years old because I was thinking about my sister and her family and thought it was be nice to have a little family of my own but my girlfriend can't have kids . Pt reports he feels he might be having an episode but I'm not sure . discussed his prior medication regimen, agreed to return to prior regimen. Increase: Haldol to 10mg PO bedtime Start: Valium 1mg PO TID 05/12: staff reported pt slept for 6 hours last evening. Pt presents calmer today. Pt stated, I feel like I'm starting to get back to my old self again. My head feels right. I wish I didn't have to take these meds because I'm worried about gaining weight . Pt reports he spoke to his parents who think I'm doing better ; pt stated, I spoke to my girlfriend and I told her I was in a manic state and didn't mean what I said. She knew I was just yapping . Pt denies SI/HI/VH/AH. Vaproic acid level on 05/12/24 is 59.1 ;Continue current tx plan. 05/13: Pt continues to report improved sleep. Pt stated, I'm not feeling depressed. Just sleepy. I wake up and I feel good . Pt denies any side effects from medications. Pt reports he is hoping to return home soon. Pt denies SI/HI/VH/AH. Plan to discharge home this week if pt continues to improve. Continue current tx plan. 05/14: Active on unit, social with peers, attending groups. Pt presents organized, and future oriented. He reports feeling good and stable . Pt has been sleeping well and expressing desire to be discharged home. T/W and high school social studies teacher, Donna, had family meeting with pt and his father. Pt's father expressed concern regarding discharge tomorrow and discussed how he presented two years ago during his hospitalization. T/W and Donna explained that pt has clinically improved in his mood, thought process and behavior. Pt does not present with symptoms of deja at this time. Pt and father were educated regarding importance of medication compliance; they both expressed understanding. Pt was educated regarding not using marijuana, despite his desire to do so; pt expressed understanding. Plan is to discharge home tomorrow and for patient to follow up with his outpatient providers. Patient educated on: diagnosis, medication risk/benefits, substance abuse and therapeutic strategies Guardian/Caregiver educated on: diagnosis and medication risk/benefits Informed Consent: understands Reason for continued inpatient stay Substantial Risk for: stable for discharge Time Spent With Patient Time: Total time managing care of this patient today _30___ minutes.
[2024-05-14] MEDS: Nicotine 21 MG PATCH.TD24 TRANSDERMA (09:36)
[2024-05-14] MEDS: Benztropine Mesylate 1 MG TABLET PO ×2 (09:37→20:41)
[2024-05-14] MEDS: diazePAM 2 MG TABLET 1 MG PO ×3 (09:37→20:39)
[2024-05-14] MEDS: Cariprazine HCl 3 MG CAPSULE PO (09:37)
[2024-05-14 19:40] VITALS: BP 140/76; PULSE 72; RESP 16; TEMP 36.6; O2SAT 98
[2024-05-14] MEDS: HaloperidoL 5 MG TABLET 10 MG PO (20:40)
[2024-05-14] MEDS: Divalproex Sodium ER 500 MG TAB.ER.24H 1500 MG PO (20:40)
[2024-05-14] MEDS: Divalproex Sodium ER 250 MG TAB.ER.24H PO (20:41)
[2024-05-14] MEDS: Melatonin 3 MG TABLET 6 MG PO (21:20)
[2024-05-15 07:15] VITALS: BP 121/58; PULSE 62; RESP 16; TEMP 36.8; O2SAT 97
[2024-05-15] MEDS: diazePAM 2 MG TABLET 1 MG PO (08:19)
[2024-05-15] MEDS: Benztropine Mesylate 1 MG TABLET PO (08:19)
[2024-05-15] MEDS: Cariprazine HCl 3 MG CAPSULE PO (08:19)
[2024-05-15] MEDS: Nicotine Polacrilex 2 MG GUM BUCCAL (08:24)
--- NOTE | 2024-05-15 08:53 | P.DS_ITS ---
DS: Providers Provider Date of Service: 05/15/24 Date of admission: 05/05/24 11:54 Date of discharge: 05/15/24 Primary care physician: Yesi Mccarty CNP Admitting clinician: Elke Anaya Attending physician on admission: Villa Arce Attending physician on discharge: Villa Arce Discharging clinician: Elke Anaya DS: Diagnosis Discharge Diagnosis (1) Bipolar disorder: Status: Acute (2) Cannabis use disorder, moderate, dependence: Status: Acute DS: Medications Discharge Medications Home Medications: Previous Rx's ?Medication ?Instructions ?Recorded benztropine 1 mg tablet 1 mg PO BID #60 tabs 07/31/22 cariprazine 3 mg capsule (Vraylar) 3 mg PO DAILY #30 caps 07/31/22 divalproex 250 mg tablet,extended 250 mg PO BEDTIME #30 tabs 07/31/22 release 24 hr divalproex 500 mg tablet,extended 1,500 mg (3 x 500 mg) PO BEDTIME 07/31/22 release 24 hr #90 tabs diazepam 2 mg tablet 1 mg (1/2 x 2 mg) PO TID 30 days 05/14/24 #45 tabs haloperidol 10 mg tablet 10 mg PO BEDTIME 30 days #30 tabs 05/14/24 melatonin 3 mg tablet 6 mg (2 x 3 mg) PO BEDTIME 30 days 05/14/24 #60 tabs Mental Status Exam Mental Status Exam Narrative: Pt is alert and oriented; behavior is cooperative, friendly and calm; dressed in casual attire; mood is described as good ; eye contact appropriate; Speech is normal rate, volume and not pressured; thought process is organized; Thought content is on tx; otherwise pertinent to relevant topics and without any delusional content, paranoid ideations or grandiosity; denies SI/HI/VH/AH. Data Data Completed and Pending Completed studies during hospitalization [Text1]: 05/08/24 05/08/24 05/12/24 09:03 09:04 09:07 Total Bilirubin 0.7 0.6 Direct Bilirubin 0.2 0.2 AST 22 22 ALT 43 H 44 H Alkaline Phosphatase 68 64 Ammonia 56 H 48 Total Protein 7.6 7.3 Albumin 4.7 4.3 Valproic Acid 72.1 59.1 DS: Summary Hospital Course Hospital Course: Patient is a 33 year old male with hx of Bipolar d/o and cannabis use d/o who self presented to [facility] ER at the request of his family secondary to exhibiting signs of increased deja. Per crisis report, presented to ER with his father for psychiatric evaluation for a possible deja episode. Pt's father reported, pt has been sleeping very little since Saturday. 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 Pt reported over the past week he started using CBD and THC products. Pt's girlfriend reported, pt did not sleep Afshin night. Pt reported he has not slept in the past 48 hours and when he woke up Saturday morning he felt euphoric. He denied SI/HI/VH/AH. Valproic acid level 77.6 on 05/04/2024 During admission assessment, alert, oriented, calm, and cooperative. Pt reports feeling fine today; pt stated, I came here because my mom was screaming at me to come to the hospital and said I wasn't acting like myself. I was relaxing in bed, listening to music. They said I wasn't sleeping, but I definitely slept the past two days. They don't get to choose when I go to bed . Pt reports he has been taking edible gummies with THC and CBD in them . Pt stated, I don't know if the edibles are affecting my sleep or what. 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 Pt denies any other substance use. Pt reports he has been medication compliant. He denies SI/HI/VH/AH. During hospital course, CV 15 minute safety checks continue home medications obtain collateral encourage groups referral to outpatient therapist discharge planning Social with peers, attending groups. Pt reports feeling good today; pt stated, I'm just worried about my job. My sleep cycle has been weird but I slept at 10pm, woke up at 2am, took a shower then went back to sleep . Pt reports he signed 3 day notice; 3 day is up on 05/08/24. Pt stated he is going to try to quit the THC even though I hate that idea . Pt denies SI/HI/VH/AH. Start: Melatonin 6mg PO bedtime Social with peers, attending groups. Retracted 3 day notice. Staff reported pt did not sleep last evening. Pt reports feeling great today; pt stated, I know I didn't sleep at all last night but I think it was because I was pumped during the [employer] game. Then the other patient was screaming for so long and I got interested in what the staff were going to do so it got me riled up . Pt observed taking a nap this afternoon. Discussed restarting Haldol with pt; pt agreed. Pt denies SI/HI/VH/AH. Spoke with pt's outpatient provider; Aida Kaufman; discussed current tx plan. Ms. Kaufman is in agreement of pt restarting Haldol. Start: Haldol 5mg PO bedtime Pt reports feeling good today; pt stated, I feel well rested. I'm hoping to be able to sleep longer than I did . Staff reported pt slept 4-5 hours last evening. Pt denies SI/HI/VH/AH. Pt denies any side effects from restarting Haldol. Continue current tx plan. Active on unit, attending groups. staff reported pt slept for 4 hours last evening. Pt discussed argument with peer over the weekend; pt stated, I felt like he was trying to trigger me and I was letting my inner demons out after getting bullied my entire life. I was rapping because that's what I usually do at home. I was surprised that no one told me to quite down because my mom usually does when I'm home . Pt reports he broke up with his girlfriend who is 54 years old because I was thinking about my sister and her family and thought it was be nice to have a little family of my own but my girlfriend can't have kids . Pt reports he feels he might be having an episode but I'm not sure . discussed his prior medication regimen, agreed to return to prior regimen. Increase: Haldol to 10mg PO bedtime Start: Valium 1mg PO TID staff reported pt slept for 6 hours last evening. Pt presents calmer today. Pt stated, I feel like I'm starting to get back to my old self again. My head f eels right. I wish I didn't have to take these meds because I'm worried about gaining weight . Pt reports he spoke to his parents who think I'm doing better ; pt stated, I spoke to my girlfriend and I told her I was in a manic state and didn't mean what I said. She knew I was just yapping . Pt denies SI/HI/VH/AH. Vaproic acid level on 05/12/24 is 59.1 ;Continue current tx plan. Pt continues to report improved sleep. Pt stated, I'm not feeling depressed. Just sleepy. I wake up and I feel good . Pt denies any side effects from medications. Pt reports he is hoping to return home soon. Pt denies SI/HI/VH/AH. Plan to discharge home this week if pt continues to improve. Continue current tx plan. Active on unit, social with peers, attending groups. Pt presents organized, and future oriented. He reports feeling good and stable . Pt has been sleeping well and expressing desire to be discharged home. T/W and social human services assistants, Donna, had family meeting with pt and his father. Pt's father expressed concern regarding discharge tomorrow and discussed how he presented two years ago during his hospitalization. T/W and Donna explained that pt has clinically improved in his mood, thought process and behavior. Pt does not present with symptoms of deja at this time. Pt and father were educated regarding importance of medication compliance; they both expressed understanding. Pt was educated regarding not using marijuana, despite his desire to do so; pt expressed understanding. Plan is to discharge home tomorrow and for patient to follow up with his outpatient providers. Pt continues to reports feeling Ready to go home ; pt plans to be medication compliant and follow up with his outpatient providers. pt denies SI/HI/VH/AH. Time spent discussing smoking cessation with patient: 3 to 10 minutes Status at Discharge Cognitive/behavioral status at discharge: Patient was interviewed prior to discharge and found to be fully oriented and without SI or HI. Patient has insight and demonstrates good judgment in terms of wanting to pursue treatment. Patient has a safety plan that includes presenting to the closest ER or calling 911 if feeling unsafe. Functional status at discharge: independent ambulation Overall status at discharge: patient is back to baseline Time Spent with Patient Time attestation: Total time managing care of this patient today _20___ minutes. Time spent: Less than 30 minutes Discharge Plan Discharge Anticipated Discharge Date/Time: 05/15/24 10:00 Patient Disposition: Home, Self-Care Discharge Diagnosis: Bipolar d/o, cannabis use Referrals: Aida Kaufman (Psychiatry) [Other] - 06/17/24 9:40 am (This appointment will take place over the phone. ) Yesi Mccarty CNP [Primary Care Provider] - 1 Week (PCP Office will follow-up with patient to schedule appt.) Discharge Medications: New melatonin 3 mg Tablet 6 mg PO BEDTIME 30 Days Qty: 60 0RF haloperidol 10 mg tablet 10 mg PO BEDTIME 30 Days Qty: 30 0RF diazepam 2 mg Tablet 1 mg PO TID 30 Days Qty: 45 0RF trazodone 100 mg Tablet 100 mg PO BEDTIME PRN (Reason: Insomnia) 30 Days Qty: 30 0RF Continued benztropine 1 mg Tablet 1 mg PO BID Qty: 60 0RF Vraylar 3 mg Capsule 3 mg PO DAILY Qty: 30 0RF divalproex 500 mg Tablet Extended Release 24 Hr 1,500 mg PO BEDTIME Qty: 90 0RF divalproex 250 mg Tablet Extended Release 24 Hr 250 mg PO BEDTIME Qty: 30 0RF Discontinued haloperidol 0.5 mg tablet 0.5 mg PO BEDTIME Discharge Orders: Discharge Order (Routine); Ordered 05/15/24 Ordered By: Elke Anaya Diet: Regular diet Activity on Discharge: As tolerated Stand Alone Forms: Patient Portal Discharge page Print Language: Tajik Care Plan Goals: Maintain mood and safe behaviors Take medications as prescribed Continue to pursue sobriety Practice coping skills Continue with outpatient providers and reach out to them as needed Health Concerns: Mood stability and behaviors Sobriety Plan of Treatment: Follow up with your PCP, psychiatric provider and other outpatient providers regarding above concerns Take medications as prescribed Assessment: Patient was interviewed prior to discharge and found to be fully oriented and without SI or HI. Patient has insight and demonstrates good judgment in terms of wanting to pursue treatment. Patient has a safety plan that includes presenting to the closest ER or calling 911 if feeling unsafe. Discharge Date/Time: 05/15/24 10:00
== END 2024-05-15 10:00 | disposition home or self-care (01) | DRG 753 ==
LOC: HO.ED 20:48 → HO.PADLT16 05-05 11:58
PROVIDERS: Physician Assistant Medical; Admitting Provider Social Worker; Emergency Provider Student in an Organized Health Care Education/Training Program; PCP Nurse Practitioner Primary Care; Responsible Provider Registered Nurse; Visit Provider Psychiatry & Neurology Psychiatry
DX: F31.2 Bipolar disorder, current episode manic severe with psychotic features (principal); F12.20 Cannabis dependence, uncomplicated; F17.210 Nicotine dependence, cigarettes, uncomplicated; Z71.6 Tobacco abuse counseling; Z79.899 Other long term (current) drug therapy
CPT/HCPCS: 36415; 80053; 80076; 80143; 80164; 80178; 80179; 80307; 81003; 82140; 85025; 93005; 99285; S9485

== ENCOUNTER → 2024-05-05 09:30 | Outpatient (BNV) | payer SELFPAY | PROVIDERS: Admitting Provider Social Worker; Emergency Provider Student in an Organized Health Care Education/Training Program; PCP Nurse Practitioner Primary Care; Responsible Provider Registered Nurse; Visit Provider Internal Medicine | DX: R00.1 Bradycardia, unspecified (principal) | CPT/HCPCS: 93010 ==

== ENCOUNTER → 2024-05-05 11:54 | Outpatient (BNV) | payer OTHER, SELFPAY | PROVIDERS: Admitting Provider Social Worker; Emergency Provider Student in an Organized Health Care Education/Training Program; PCP Nurse Practitioner Primary Care; Responsible Provider Registered Nurse; Visit Provider Registered Nurse | DX: F31.13 Bipolar disorder, current episode manic without psychotic features, severe (principal); F12.20 Cannabis dependence, uncomplicated | CPT/HCPCS: 90792; 99231; 99232; 99238 ==